=== PATIENT | female | born 1960 | race Two or more races ===

== ENCOUNTER 2020-07-17 06:16 | Day surgery (SDC) | payer OTHER, SELFPAY ==
--- NOTE | 2020-07-16 12:03 | P.CONAN_ITS ---
Documented by User: Teresa Arias 07/16/20 12:03 HPI - Anesthesia Eval Consult details Narrative: 59yo F for Colonoscopy [facility] Past Medical History Medical History Allergic rhinitis DDD (degenerative disc disease) Hx of thyroid nodule Renal calculi Surgical History Surgical History History of umbilical hernia repair Hx of tubal ligation Status post laser lithotripsy of ureteral calculus Social History Social History Smoking Status: Never smoker Use of substances other than those prescribed or required for medical reasons: No Advance Directives: Yes Advance Directives Information Provided: Yes Advance Directives on File: No Advance Directives Date on File: 07/17/20 Meds Allergies Allergy/AdvReac Type Severity Reaction Status Date / Time Penicillins [PCN] Allergy Severe SWELLING Verified 07/17/20 06:51 strawberry [STRAWBERRY] Allergy Severe ANAPHYLAXIS Verified 07/17/20 06:51 azithromycin [AZITHROMYCIN] Allergy Intermediate HIVES/GI Verified 07/17/20 06:51 UPSET levofloxacin [From LEVAQUIN] AdvReac Intermediate MUSCLE Verified 07/17/20 06:51 ACHES/TIGHTNESS Home Medications Medication Instructions Recorded Confirmed Type cholecalciferol (vitamin D3) 50 mcg PO DAILY 07/13/20 07/17/20 History [Vitamin D3] multivitamin 1 cap PO DAILY 07/13/20 07/17/20 History Exam Exam Date and Time: July 16, 2020 1203 Assessment and Plan Assessment Anesthesia Assessment: Chart Reviewed Documented by User: Margarita Bailey 07/17/20 07:26 [facility] Past Medical History Medical History Allergic rhinitis DDD (degenerative disc disease) Hx of thyroid nodule Renal calculi Surgical History Surgical History History of umbilical hernia repair Hx of tubal ligation Status post laser lithotripsy of ureteral calculus Social History Social History Smoking Status: Never smoker Use of substances other than those prescribed or required for medical reasons: No Advance Directives: Yes Advance Directives Information Provided: Yes Advance Directives on File: No Advance Directives Date on File: 07/17/20 Meds Allergies Allergy/AdvReac Type Severity Reaction Status Date / Time Penicillins [PCN] Allergy Severe SWELLING Verified 07/17/20 06:51 strawberry [STRAWBERRY] Allergy Severe ANAPHYLAXIS Verified 07/17/20 06:51 azithromycin [AZITHROMYCIN] Allergy Intermediate HIVES/GI Verified 07/17/20 06:5 1 UPSET levofloxacin [From LEVAQUIN] AdvReac Intermediate MUSCLE Verified 07/17/20 06:51 ACHES/TIGHTNESS Home Medications Medication Instructions Recorded Confirmed Type cholecalciferol (vitamin D3) 50 mcg PO DAILY 07/13/20 07/17/20 History [Vitamin D3] multivitamin 1 cap PO DAILY 07/13/20 07/17/20 History Exam Airway Mallampati Class: II TM Dist: >3cm Neck ROM: Full
[2020-07-17 06:40] VITALS: BP 123/66; PULSE 65; RESP 16; TEMP 36.3; O2SAT 96; BMI 20.6
[2020-07-17] MEDS: Lactated Ringers 1,000 ML 100 ML IVCONT (07:03)
--- NOTE | 2020-07-17 07:21 | P.HPSUR_ITS ---
Pre-Procedural Eval Section B Chief Complaint: SCREENING Details of Present Illness: see H&P no changes Relevant Family History (Specify if Yes): No Relevant Social History: None Present Medications: see Short Stay Collaborative assessment Medical History: Significant History (see H&P) History of Previous Operations: No relevant previous surgery Allergies: Allergies Allergy/AdvReac Type Severity Reaction Status Date / Time Penicillins [PCN] Allergy Severe SWELLING Verified 07/17/20 06:51 strawberry [STRAWBERRY] Allergy Severe ANAPHYLAXIS Verified 07/17/20 06:51 azithromycin [AZITHROMYCIN] Allergy Intermediate HIVES/GI Verified 07/17/20 06:51 UPSET levofloxacin [From LEVAQUIN] AdvReac Intermediate MUSCLE Verified 07/17/20 06:51 ACHES/TIGHTNESS Review of Systems Sugical H&P ROS: Negative: Constitution, Cardiovascular, Respiratory, Ne urological, Psychiatric, Hem-Onc, Allergic/Immunologic, Gastrointestinal, Genitourinary, Musculoskeletal, Integumentary, Endocrine and Eyes/Ears/Nose/Throat Exam Surgical H&P Exam: Normal: HEENT, Normal: Heart, Normal: Lungs, Normal: Extremities, Normal: Abdomen, Normal: Skin and Normal: Neurological Plan Diagnosis/Plan: Unchanged Patient has been examined and remains a candidate for the planned procedure
[2020-07-17 07:50] VITALS: BP 85/39; PULSE 72; RESP 14; TEMP 36.4; O2SAT 99
--- NOTE | 2020-07-17 07:50 | PM.OP ---
Brief Operative Note Date of Service: 07/17/20 Pre-op diagnosis: screening Post-op diagnosis: same (colon polyp) Procedure: colonoscopy Surgeon: Jose E Momin Anesthesia: MAC Estimated blood loss (mL): 2 Pathology: other (polyp cecum) Condition: stable Disposition: PACU
[2020-07-17 08:05] VITALS: BP 123/65; PULSE 66; RESP 16; TEMP 36.4; O2SAT 100
[2020-07-17 08:20] VITALS: BP 126/68; PULSE 60; RESP 16; TEMP 36.4; O2SAT 100
--- NOTE | 2020-07-17 08:20 | OP_ITS ---
SURGEON: Jose E Momin MD PREOPERATIVE DIAGNOSIS: POSTOPERATIVE DIAGNOSIS: PROCEDURE PERFORMED: ESTIMATED BLOOD LOSS: COMPLICATIONS: ANESTHESIA: ASSISTANTS: SPECIMENS: PROCEDURE: Colonoscopy to the terminal ileum with biopsy. INDICATION: Colon cancer screening. MEDICATIONS: Monitored anesthesia care. DESCRIPTION OF PROCEDURE: History and physical performed. The risks and benefits of the procedure were explained to the patient. Informed consent was obtained. The patient was placed in the left lateral decubitus position. A digital rectal exam was performed and was found to be normal. The Olympus pediatric video colonoscope was introduced into the rectum and advanced to the cecum without difficulty. The cecum was identified by transillumination, palpation, and identification of ileocecal valve. Examination was performed. The scope was removed. She tolerated the procedure well and was taken to recovery room in stable condition. FINDINGS: The terminal ileum was normal. The visualized colonic mucosa was normal. The quality of the prep was good. In the cecum was a less than 5 mm sessile polyp which we removed with biopsy forceps. No other polyps were identified. Retroflexed examination showed small internal hemorrhoids. IMPRESSION: Colon polyp. RECOMMENDATION: Follow up biopsy results. MD MANPREET Ross/ENOC / [id number]
--- NOTE | 2020-07-17 08:32 | HO.POSTANES ---
Post Anesthesia Evaluation Post Anesthesia Evaluation Vital Signs: Vital Signs Temp Pulse Resp BP Pulse Ox 07/17/20 08:20 97.6 F 60 16 126/68 100 07/17/20 08:05 97.6 F 66 16 123/65 100 07/17/20 07:50 97.6 F 72 14 85/39 L 99 07/17/20 06:40 97.4 F 65 16 123/66 96 Anesthesia: Monitored Mental Status: Awake Pain Control: Satisfactory Nausea/Vomiting: None Hydration: Adequate Anesthesia-Related Issues: No Anes. Related Issues
== END 2020-07-17 08:45 | disposition home or self-care (01) ==
PROVIDERS: Visit Provider Internal Medicine Gastroenterology
PROC: 0DJD8ZZ Inspection of Lower Intestinal Tract, Via Natural or Artificial Opening Endoscopic (ICD-10-PCS; CPT 45378; principal; 2020-07-17 07:30)
DX: Z12.11 Encounter for screening for malignant neoplasm of colon (principal); D12.0 Benign neoplasm of cecum; Z88.0 Allergy status to penicillin
CPT/HCPCS: 45380; 88305

== ENCOUNTER → 2020-09-14 13:47 | Outpatient (BNVA) | payer OTHER, SELFPAY | PROVIDERS: PCP Internal Medicine; Visit Provider Hospitalist ==

== ENCOUNTER 2020-10-07 10:55 | Outpatient (REF) | payer OTHER, SELFPAY ==
--- NOTE | ~2020-10-07 | XR_ITS ---
EXAMINATION: XR CHEST CLINICAL INFORMATION: COVID 19 COMPARISON: Lung bases from [facility] 08/28/2019 TECHNIQUE: 2 views of the chest were obtained. FINDINGS: New blunting of the right costophrenic angle suggesting a small right pleural effusion. Tenting of the left hemidiaphragm was present 08/28/2019. Normal heart size. No pneumothorax. Normal pulmonary vascularity. No focal consolidation or mass. S-shaped thoracolumbar scoliosis. XR/XR chest 2V IMPRESSION: New small right pleural effusion. No focal consolidation seen.
== END 2020-10-07 10:56 | disposition home or self-care (01) ==
LOC: HO.XRAY 10:55
PROVIDERS: Visit Provider Hospitalist
DX: U07.1 COVID-19 (principal); J12.82 Pneumonia due to coronavirus disease 2019
CPT/HCPCS: 71046

== ENCOUNTER → 2021-01-20 08:54 | Outpatient (BNVA) | payer BC, SELFPAY | PROVIDERS: PCP Internal Medicine; Visit Provider Hospitalist ==

== ENCOUNTER 2021-05-03 07:51 | Outpatient (REF) | payer BC, SELFPAY ==
--- NOTE | 2021-05-03 16:17 | PFT_ITS ---
Forced vital capacity, FEV1, ABY28-66, and MVV are all slightly decreased. Post bronchodilator therapy, no significant change except for slight increase in OVT21-09. Total lung capacity and residual volume normal. Diffusion capacity is moderately decreased. CONCLUSION: There is evidence of a mild degree of obstructive airway disorder involving small airways. There is a minimal improvement after bronchodilator therapy. Clinical correlation is recommended. MD RAJAN Ferrer/ENOC / [id number]
== END 2021-05-03 07:52 | disposition home or self-care (01) ==
LOC: HO.RESP 07:51
PROVIDERS: PCP Internal Medicine; Visit Provider Hospitalist
DX: U07.1 COVID-19 (principal); J12.82 Pneumonia due to coronavirus disease 2019
CPT/HCPCS: 94060; 94727; 94729

== ENCOUNTER 2021-05-14 09:26 | Outpatient (REF) | payer BC, SELFPAY | END 2021-05-14 09:27 | disposition home or self-care (01) | LOC: HO.LAB 09:26 | PROVIDERS: Visit Provider Internal Medicine | DX: Z13.89 Encounter for screening for other disorder (principal) ==

== ENCOUNTER → 2021-05-20 11:06 | Outpatient (BNVA) | payer BC, SELFPAY | PROVIDERS: PCP Internal Medicine; Visit Provider Hospitalist ==

== ENCOUNTER 2021-10-20 15:52 | Inpatient (IN) | payer BC, SELFPAY ==
[2021-10-20] VITALS (7 sets, daily range): BP systolic 113–192; BP diastolic 46–102; PULSE 64–91; RESP 11–24; TEMP 36.5–37.2; O2SAT 90–100; BMI 20.8
--- NOTE | ~2021-10-20 | CT_ITS ---
EXAMINATION: CT HEAD WITHOUT CONTRAST CLINICAL INFORMATION: Headache. COMPARISON: No similar priors. TECHNIQUE: Contiguous axial imaging was performed from the skull base to vertex without intravenous administration of contrast. This CT examination was performed using dose optimization techniques as appropriate, variously including the following: *Automated exposure control *Adjustment of mA and/or kV according to patient size (this includes techniques or standardized protocols for targeted exams where dose is matched to indication/reason for exam; i.e. extremities or head) *Use of iterative reconstruction technique DLP: 629 mGy-cm FINDINGS: Age indeterminate lacunar infarcts in the right basal ganglia (5:138) and right frontal lobe (7:64). There is no evidence of acute intracranial hemorrhage or edematous territorial infarction. A few foci of hypoattenuation in the periventricular and deep white matter are consistent with mild microangiopathy. Caruso-white matter differentiation is preserved. The ventricles are normal in size and configuration. No evidence for obstructive hydrocephalus. No abnormal mass effect or midline shift. No extra-axial fluid collections. No acute soft tissue or osseous abnormalities. The mastoid air cells and paranasal sinuses are clear. CT/CT head/brain wo con IMPRESSION: Age indeterminate lacunar infarcts in the right basal ganglia and right frontal lobe. No priors are available for comparison. Further evaluation with an MR of the brain could be obtained if indicated. No acute intracranial hemorrhage or edematous territorial infarction. This result was discussed with Deysi Khan NP at 10/20/2021 6:01 PM and it was ascertained that the content and urgency of the report was understood at the time of direct communication.
--- NOTE | ~2021-10-20 | MR_ITS ---
EXAMINATION: MR BRAIN WITHOUT CONTRAST CLINICAL INFORMATION: Right-sided lacunar infarct. COMPARISON: CT head from 10/20/2021. TECHNIQUE: MRI of the brain was obtained using routine sequences without contrast. FINDINGS: No focal restricted diffusion is demonstrated to suggest acute or subacute cerebral ischemia. No evidence of acute hemorrhagic products on heme-sensitive imaging. Patchy T2 hyperintensities with mild susceptibility artifact in the bilateral globus pallidi. Scattered periventricular and deep white matter T2 FLAIR hyperintensities consistent with mild underlying microangiopathy. Proportional prominence of the ventricles and sulcal spaces without evidence of obstructive hydrocephalus. No abnormal mass effect. No midline shift. Normal appearance of the pituitary gland. Normal positioning of the cerebellar tonsils. Normal arterial and venous vascular flow voids are present. Normal, homogeneous marrow signal. Mild mucosal thickening of the paranasal sinuses. No signal abnormalities within the mastoids. MR/MR head/brain wo con IMPRESSION: 1. No acute intracranial abnormalities. 2. Mild underlying microangiopathy. 3. Symmetric T2 hyperintensity within the bilateral globus pallidi with mild susceptibility artifact. This appearance is nonspecific but may be secondary to chronic metabolic/toxic insults.
--- NOTE | 2021-10-20 16:47 | ED.HA ---
HPI - Headache General Chief Complaint: Headache Stated Complaint: BP check Time Seen by Provider: 10/20/21 16:05 Source: patient Mode of arrival: ambulatory Limitations: no limitations History of Present Illness HPI Narrative: 60-year-old female presents with elevated blood pressure and headache. Patient has not had a headache that felt like this in the past, the headache is on the right side of her head and feels like a throbbing pressure. She does not report any other symptoms. MD elicited complaint: headache Pertinent past history: hypertension Onset (ago): day(s) (1) Onset description: gradually Location: right Quality & Timing: aching, throbbing and pressure Exacerbating factors: none Relieving factors: nothing Context: occurred at rest Associated symptoms: none Treatments prior to arrival: none Related Data Home Medications Medication Instructions Recorded Confirmed cholecalciferol (vitamin D3) 50 50 mcg PO DAILY 07/13/20 10/20/21 mcg (2,000 unit) capsule (Vitamin D3) Allergies Allergy/AdvReac Type Severity Reaction Status Date / Time Penicillins [PCN] Allergy Severe SWELLING Verified 05/20/21 11:16 strawberry [STRAWBERRY] Allergy Severe ANAPHYLAXIS Verified 05/20/21 11:16 azithromycin [AZITHROMYCIN] Allergy Intermediate HIVES/GI Verified 05/20/21 11:16 UPSET levofloxacin [From LEVAQUIN] AdvReac Intermediate MUSCLE Verified 05/20/21 11:16 ACHES/TIGHTNESS Review of Systems Review of Systems: Constitutional: No Fever, No Chills ENT/Mouth: No Ear Pain, No Hoarseness, No sore throat Eyes: No Eye Pain, No Swelling, No Redness, No Foreign Body Cardiovascular: No Chest Pain, No SOB Respiratory: No Cough, No Dyspnea Gastrointestinal: No Nausea, No Vomiting, No Diarrhea, No abdominal Pain Genitourinary: No Dysuria, No Hematuria Musculoskeletal: No joint pain, No Myalgias, No Joint Swelling Skin: No Skin lacerations, No rash Neuro: No Weakness, No Numbness, No Paresthesias, No Loss of Consciousness, No Dizziness, positive Headache Psych: No Anxiety/Panic, No Depression Heme/Lymph: no easy bruising, no Lymphadenopathy Endocrine: No Polyuria, No Polydipsia Yes all other systems are reviewed and are negative PMFSH Past Medical History Attestation statement: The following information was validated with the patient. Source: old records reviewed Medical History Abnormality of lung on CXR Allergic rhinitis Cough DDD (degenerative disc disease) Dyspnea Hx of thyroid nodule Pneumonia Pneumonia due to COVID-19 virus Pneumonitis Renal calculi Surgical History History of umbilical hernia repair Hx of tubal ligation Status post laser lithotripsy of ureteral calculus Social History Social History Alcohol intake: never Patient Tobacco Use Status: Never used Tobacco Use of substances other than those prescribed or required for medical reasons: No Advance Directives: Yes Advance Directives on File: Yes Advance Directives Date on File: 07/17/20 Physical Exam Vital Signs: Vital Signs: Last Vital Signs Temp 98.4 F 10/20/21 19:56 Pulse 78 10/20/21 20:52 Resp 13 10/20/21 20:52 BP 157/73 H 10/20/21 20:52 Pulse Ox 90 L 10/20/21 20:52 BMI result Body Mass Index 20.8 Appearance: Alert. Oriented X3. No acute distress. Eyes: Pupils equal, round and reactive to light. EOMI. Sclera nonicteric. ENT: Pharynx normal. Moist mucous membranes. Neck: Normal inspection. Neck supple. CVS: Normal heart rate and rhythm. Pulses normal. Respiratory: No respiratory distress. Breath sounds normal. Abdomen: Soft and nontender. Skin: Skin warm and dry. Normal skin color. Normal skin turgor. Extremities: No lower extremity edema. Gait well-balanced well coordinated. Neuro: No motor deficit. No sensory deficit. Cranial nerves 2-12 intact. NIH Stroke Scale Internal: Initial- Upon Arrival Level of Consciousness: Alert Level of Consciousness Questions: Answers both questions correctly Level of Consciousness Commands: Performs both tasks correctly Best Gaze: Normal Visual: No visual loss Facial Palsy: Normal Motor Arm (Right): No drift Motor Arm (Left): No drift Motor Leg (Right): No drift Motor Leg (Left): No drift Limb Ataxia: Absent Sensory: Normal Best Language: No aphasia Dysarthia: Normal Extinction and Inattention: No abnormality Score: 0 Course Course Course Narrative: 60-year-old female presents with right-sided headache with elevated blood pressure. Patient has not ever had a headache like this in the past. She contacted her primary care physician to report her symptoms as well as her elevated blood pressure and was directed to the emergency department for evaluation. She does not report any other symptoms, states that she did have a stressful day at work, did not report any trauma, dizziness, lightheadedness, changes in vision, chest pain or pressure, palpitations, loss of balance or any other concerning symptoms. Will order lab values, COVID test and CT scan of head as she has not had a headache of this intensity in the past. Last known well 15:25 today 18:02 discussion with Radiology regarding CT scan results, 2 lacunar infarcts in the right basal ganglia and right frontal lobe. no bleeding, no edema. MRI recommended. 18:05 call out to Neurology. 18:13 discussion with Neurology, Dr. Dillard, stated that there is nothing that needs to be done urgently 19:20 discussion with family regarding findings, detailed discussion with patient's daughter and patient regarding plan for admission. 19:43 discussion with hospitalist regarding plan of care to admit for stroke observation. Consultations Consultation #1: Hayde Time: 19:46 MDM - Headache Differential Diagnosis Differential diagnosis: Likely migraine, subarachnoid hemorrhage and headache Medical Records Attestation: I reviewed the patient's medical records. Lab Data Attestation: I reviewed the patient's lab results. Result diagrams: 10/20/21 17:19 10/20/21 17:19 Labs: Lab Results 10/20/21 10/20/21 10/20/21 Range/Units 17:19 17:19 17:19 WBC 7.1 (4.8-10.8) X10*3/uL RBC 5.17 (4.20-5.50) X10*6/uL Hgb 13.7 (12.0-16.0) g/dl Hct 43.0 (37.0-47.0) % MCV 83.2 (80.0-98.0) fL MCH 26.5 L (27.0-33.0) pg MCHC 31.9 (31.0-35.0) g/dl RDW 13.8 (11.0-16.0) % Plt Count 265 (160-400) X10*3/uL MPV 9.6 (9.4-12.3) fL Immature Gran % (Auto) 0.3 (0.0-0.4) % Neut % (Auto) 50.3 (45-73) % Lymph % (Auto) 41.0 H (20-40) % [place] % (Auto) 6.9 (2-11) % Eos % (Auto) 0.8 (0-4) % Baso % (Auto) 0.7 (0-2) % Lymph # (Auto) 2.9 (1.2-4.9) X10*3/uL [place] # (Auto) 0.5 (0.1-1.2) X10*3/uL Eos # (Auto) 0.1 (0.0-0.4) X10*3/uL Baso # (Auto) 0.1 (0.0-0.2) X10*3/uL Abs Immat Gran (auto) 0.02 (0.00-0.03) X10*3/uL Absolute Neuts (auto) 3.6 (2.0-8.3) x10*3/uL Absolute Nucleated RBC 0.000 (0.0-0.012) X10*3/uL Nucleated RBC % (auto) 0.0 (0.0-0.2) /100WBC PT (9.9-13.0) SEC Whole Blood PT (11.1-13.5) sec INR (0.9-1.1) Whole Blood INR (0.9-1.1) APTT (24.1-38.0) SEC Sodium 140 (135-145) mmol/L Potassium 4.4 (3.3-5.1) mmol/L Chloride 103 (96-108) mmol/L Carbon Dioxide 29 (22-29) mmol/L Anion Gap 12 (12-20) BUN 11 (9-16) mg/dL Creatinine 0.70 (0.5-1.4) mg/dL Estim Creat Clear Calc 56.8 Estimated GFR > 60 POC Glucose (60-115) mg/dL Random Glucose 91 (60-115) mg/dL Calcium 9.6 (8.4-10.2) mg/dL Magnesium (1.6-2.6) mg/dL Troponin I High Sens (<3.5-17.0) ng/L COVID-19 (BRITT) Negative (Negative) COVID-19 Clin Com See Note 10/20/21 10/20/21 10/20/21 Range/Units 18:15 18:15 18:17 WBC (4.8-10.8) X10*3/uL RBC (4.20-5.50) X10*6/uL Hgb (12.0-16.0) g/dl Hct (37.0-47.0) % MCV (80.0-98.0) fL MCH (27.0-33.0) pg MCHC (31.0-35.0) g/dl RDW (11.0-16.0) % Plt Count (160-400) X10*3/uL MPV (9.4-12.3) fL Immature Gran % (Auto) (0.0-0.4) % Neut % (Auto) (45-73) % Lymph % (Auto) (20-40) % [place] % (Auto) (2-11) % Eos % (Auto) (0-4) % Baso % (Auto) (0-2) % Lymph # (Auto) (1.2-4.9) X10*3/uL [place] # (Auto) (0.1-1.2) X10*3/uL Eos # (Auto) (0.0-0.4) X10*3/uL Baso # (Auto) (0.0-0.2) X10*3/uL Abs Immat Gran (auto) (0.00-0.03) X10*3/uL Absolute Neuts (auto) (2.0-8.3) x10*3/uL Absolute Nucleated RBC (0.0-0.012) X10*3/uL Nucleated RBC % (auto) (0.0-0.2) /100WBC PT 10.8 (9.9-13.0) SEC Whole Blood PT (11.1-13.5) sec INR 1.0 (0.9-1.1) Whole Blood INR (0.9-1.1) APTT 30.9 (24.1-38.0) SEC Sodium (135-145) mmol/L Potassium (3.3-5.1) mmol/L Chloride (96-108) mmol/L Carbon Dioxide (22-29) mmol/L Anion Gap (12-20) BUN (9-16) mg/dL Creatinine (0.5-1.4) mg/dL Estim Creat Clear Calc Estimated GFR POC Glucose 80 (60-115) mg/dL Random Glucose (60-115) mg/dL Calcium (8.4-10.2) mg/dL Magnesium 2.1 (1.6-2.6) mg/dL Troponin I High Sens (<3.5-17.0) ng/L COVID-19 (BRITT) (Negative) COVID-19 Clin Com 10/20/21 10/20/21 Range/Units 18:17 18:18 WBC (4.8-10.8) X10*3/uL RBC (4.20-5.50) X10*6/uL Hgb (12.0-16.0) g/dl Hct (37.0-47.0) % MCV (80.0-98.0) fL MCH (27.0-33.0) pg MCHC (31.0-35.0) g/dl RDW (11.0-16.0) % Plt Count (160-400) X10*3/uL MPV (9.4-12.3) fL Immature Gran % (Auto) (0.0-0.4) % Neut % (Auto) (45-73) % Lymph % (Auto) (20-40) % [place] % (Auto) (2-11) % Eos % (Auto) (0-4) % Baso % (Auto) (0-2) % Lymph # (Auto) (1.2-4.9) X10*3/uL [place] # (Auto) (0.1-1.2) X10*3/uL Eos # (Auto) (0.0-0.4) X10*3/uL Baso # (Auto) (0.0-0.2) X10*3/uL Abs Immat Gran (auto) (0.00-0.03) X10*3/uL Absolute Neuts (auto) (2.0-8.3) x10*3/uL Absolute Nucleated RBC (0.0-0.012) X10*3/uL Nucleated RBC % (auto) (0.0-0.2) /100WBC PT (9.9-13.0) SEC Whole Blood PT 11.9 (11.1-13.5) sec INR (0.9-1.1) Whole Blood INR 1.0 (0.9-1.1) APTT (24.1-38.0) SEC Sodium (135-145) mmol/L Potassium (3.3-5.1) mmol/L Chloride (96-108) mmol/L Carbon Dioxide (22-29) mmol/L Anion Gap (12-20) BUN (9-16) mg/dL Creatinine (0.5-1.4) mg/dL Estim Creat Clear Calc Estimated GFR POC Glucose (60-115) mg/dL Random Glucose (60-115) mg/dL Calcium (8.4-10.2) mg/dL Magnesium (1.6-2.6) mg/dL Troponin I High Sens 7.5 (<3.5-17.0) ng/L COVID-19 (BRITT) (Negative) COVID-19 Clin Com Imaging Data CT scan - head: Attestation: I personally reviewed and interpreted this imaging study as follows: Radiologist's impression: FINDINGS: Age indeterminate lacunar infarcts in the right basal ganglia (5:138) and right frontal lobe (7:64). There is no evidence of acute intracranial hemorrhage or edematous territorial infarction. A few foci of hypoattenuation in the periventricular and deep white matter are consistent with mild microangiopathy. Caruso-white matter differentiation is preserved. The ventricles are normal in size and configuration. No evidence for obstructive hydrocephalus. No abnormal mass effect or midline shift. No extra-axial fluid collections. No acute soft tissue or osseous abnormalities. The mastoid air cells and paranasal sinuses are clear. ? CT/CT head/brain wo con IMPRESSION: Age indeterminate lacunar infarcts in the right basal ganglia and right frontal lobe. No priors are available for comparison. Further evaluation with an MR of the brain could be obtained if indicated. ? No acute intracranial hemorrhage or edematous territorial infarction. ? This result was discussed with Deysi Khan NP at 10/20/2021 6:01 PM and it was ascertained that the content and urgency of the report was understood at the time of direct communication. MRI - head: Attestation: I personally reviewed and interpreted this imaging study as follows: Radiologist's impression: EXAMINATION: MR BRAIN WITHOUT CONTRAST CLINICAL INFORMATION: Right-sided lacunar infarct.? COMPARISON: CT head from 10/20/2021.? TECHNIQUE: MRI of the brain was obtained using routine sequences without contrast. FINDINGS: No focal restricted diffusion is demonstrated to suggest acute or subacute cerebral ischemia. No evidence of acute hemorrhagic products on heme-sensitive imaging. Patchy T2 hyperintensities with mild susceptibility artifact in the bilateral globus pallidi. Scattered periventricular and deep white matter T2 FLAIR hyperintensities consistent with mild underlying microangiopathy. Proportional prominence of the ventricles and sulcal spaces without evidence of obstructive hydrocephalus. No abnormal mass effect. No midline shift. Normal appearance of the pituitary gland. Normal positioning of the cerebellar tonsils. Normal arterial and venous vascular flow voids are present. Normal, homogeneous marrow signal. Mild mucosal thickening of the paranasal sinuses. No signal abnormalities within the mastoids. MR/MR head/brain wo con IMPRESSION: 1. No acute intracranial abnormalities. 2. Mild underlying microangiopathy. 3. Symmetric T2 hyperintensity within the bilateral globus pallidi with mild susceptibility artifact. This appearance is nonspecific but may be secondary to chronic metabolic/toxic insults. ? ECG Data Attestation: I personally reviewed and interpreted this ECG as follows: ECG interpretation date: 10/20/21 Prior ECG tracings: available for review Critical Care Time Critical Care Time Critical Care Time: Yes Total Critical Care Time: 45 Attestation: I have personally provided critical care time exclusive of time spent on separately billable procedures. Time includes review of laboratory data, radiology results, discussion with consultants, and monitoring for potential decompensation. Interventions were performed as documented. Discharge Plan Discharge Clinical Impression: Lacunar infarction Patient Disposition: Admitted As Inpatient
[2021-10-20 17:23] LABS: MANUAL DIFF FLAG NO
[2021-10-20 17:25] LABS: Basophils Absolute Auto 0.1 X10*3/uL (0.0-0.2); Basophils Percent Auto 0.7 % (0-2); Eosinophils Absolute Auto 0.1 X10*3/uL (0.0-0.4); Eosinophils Percent Auto 0.8 % (0-4); Hemoglobin 13.7 g/dl (12.0-16.0); Imm Gran Abs Auto 0.02 X10*3/uL (0.00-0.03); Imm Gran Pct Auto 0.3 % (0.0-0.4); Lymphocytes Absolute Auto 2.9 X10*3/uL (1.2-4.9); Mean Corpuscular HGB Conc 31.9 g/dl (31.0-35.0); Mean Corpuscular Hemoglobin 26.5 pg (27.0-33.0); Mean Corpuscular Volume 83.2 fL (80.0-98.0); Mean Platelet Volume 9.6 fL (9.4-12.3); Monocytes Absolute Auto 0.5 X10*3/uL (0.1-1.2); Monocytes Percent Auto 6.9 % (2-11); Neutrophils Absolute Auto 3.6 x10*3/uL (2.0-8.3); Neutrophils Percent Auto 50.3 % (45-73); Platelet Count 265 X10*3/uL (160-400); Red Blood Count 5.17 X10*6/uL (4.20-5.50); Red Cell Distribution Width 13.8 % (11.0-16.0); White Blood Count 7.1 X10*3/uL (4.8-10.8)
[2021-10-20 17:40] LABS: Anion Gap 12 (12-20); Blood Urea Nitrogen 11 mg/dL (9-16); Calcium 9.6 mg/dL (8.4-10.2); Carbon Dioxide 29 mmol/L (22-29); Chloride 103 mmol/L (96-108); Creatinine Clr Calc Pharmacy 56.8; Estimated Glomerular Filt Rate > 60; Glucose Random 91 mg/dL (60-115); Potassium 4.4 mmol/L (3.3-5.1); Sodium 140 mmol/L (135-145)
[2021-10-20 17:46] LABS: COVID-19 Test Negative (Negative)
--- NOTE | 2021-10-20 18:08 | ECG_ITS ---
Test Reason : stroke protocol Blood Pressure : / mmHG Vent. Rate : 082 BPM Atrial Rate : 082 BPM P-R Int : 146 ms QRS Dur : 082 ms QT Int : 364 ms P-R-T Axes : 056 042 027 degrees QTc Int : 425 ms Normal sinus rhythm Normal ECG When compared to the previous EKG of No significant changes seen Referred By: Deysi Cain Electronically Signed By:ALFREDO CLEANING MD
[2021-10-20 18:22] LABS: Glucose, Whole Blood 80 mg/dL (60-115)
[2021-10-20] MEDS: Aspirin 81 MG TAB.CHEW 324 MG PO (18:22)
[2021-10-20 18:24] LABS: Prothrombin Time Whole Bld POC 11.9 sec (11.1-13.5)
[2021-10-20 18:39] LABS: Magnesium 2.1 mg/dL (1.6-2.6)
[2021-10-20 18:43] LABS: Troponin-I High Sensitivity 7.5 ng/L (<3.5-17.0)
[2021-10-20 18:47] LABS: Prothrombin Time 10.8 SEC (9.9-13.0)
[2021-10-20 18:50] LABS: Partial Thromboplastin Time 30.9 SEC (24.1-38.0)
--- NOTE | 2021-10-20 19:49 | PHA.MEDREC ---
Pharmacy Consult ? Medication Reconciliation Pharmacy has completed the medication reconciliation.
[2021-10-20] MEDS: Acetaminophen 325 MG TABLET 650 MG PO (19:57)
[2021-10-20] MEDS: HYDROmorphone HCl 1 MG/ML SYRINGE IVPUSH (20:48)
[2021-10-20] MEDS: LORazepam 2 MG/ML VIAL 0.5 MG IVPUSH (20:48)
--- NOTE | 2021-10-20 21:04 | P.HPHOSP_ITS ---
History of Present Illness Date of Service: 10/20/21 Chief Complaint: severe headache this is a 60-year-old female with past medical history of thyroid nodules status post thyroidectomy, allergic rhinitis who presents the hospital with complaints of severe headache. Patient reports the headache is in the room holiness region, radiating to the mid of her head, she was very stressed today at work, she has taken on a new job and is very very stressed. She walked out of her job today after being very stressed and experiencing headache that was not resolving with Tylenol. She checked her blood pressure at home and it was high in the 170s/90s. She called her PCP and he told her to come to the hospital. Patient denies slurred speech, or difficulty speaking, no numbness tingling or weakness in her upper or lower extremities, she denies having any gait issues, and no vision changes. She appears very anxious, crying, rubbing at her head and phase, reports that now she feels pressure in her face. She denies any chest pain, no palpitations, no abdominal pain nausea or vomiting, no diarrhea constipation, no urinary symptoms and no lower extremity edema. vitals on arrival significant for BP of 176/89, otherwise unremarkable Labs areUnremarkable with no significant abnormality, CT of the head shows age indeterminate lacunar infarcts in the right basal ganglia and right frontal lobe, no priors are available for comparison. MRI of the brain was done which showed no focal restricted diffusion is demonstrated to suggest acute or subacute central ischemia. Patchy T2 hyperintensities with mild susceptibility artifact in the bilateral globus pallidus I consistent with mild underlying microangiopathy. This is nonspecific but may be secondary to chronic metabolic/toxic insult patient started on aspirin and will be admitted for further management Review of Systems Review of Systems: Yes all other systems are reviewed and are negative [facility] Medical History Abnormality of lung on CXR Allergic rhinitis Cough DDD (degenerative disc disease) Dyspnea Hx of thyroid nodule Pneumonia Pneumonia due to COVID-19 virus Pneumonitis Renal calculi Family History (Updated 10/21/21 @ 06:30 by Theron Lock MD) Father CVA (cerebral vascular accident) Mother CVA (cerebral vascular accident) Surgical History History of umbilical hernia repair Hx of tubal ligation Status post laser lithotripsy of ureteral calculus Social History Household Members: Spouse Housing: House Do you presently have visiting nurse or other home services: No Alcohol intake: never Patient Tobacco Use Status: Never used Tobacco Use of substances other than those prescribed or required for medical reasons: No Have you been hit, kicked, punched, or otherwise hurt by someone within the past year? If so, by whom?: No Do you feel safe in your current relationship?: Yes Is there a partner from a previous relationship who is making you feel unsafe now?: No Are you made to feel afraid or neglected: No Advance Directives: Yes Advance Directives on File: Yes Advance Directives Date on File: 07/17/20 Do you have thoughts of harming others: None Do you have a plan to hurt others: No Plan Recently lost weight without trying: No Nutrition Risks: No Nutritional Risk Meds Allergies Allergy/AdvReac Type Severity Reaction Status Date / Time Penicillins [PCN] Allergy Severe SWELLING Verified 05/20/21 11:16 strawberry [STRAWBERRY] Allergy Severe ANAPHYLAXIS Verified 05/20/21 11:16 azithromycin [AZITHROMYCIN] Allergy Intermediate HIVES/GI Verified 05/20/21 11:16 UPSET levofloxacin [From LEVAQUIN] AdvReac Intermediate MUSCLE Verified 05/20/21 11:16 ACHES/TIGHTNESS Active Medications: Current Medications Aspirin (Aspirin Enteric Coated 81 Mg Tablet.Dr) 81 mg PO DAILY [facility] Home Medications Medication Instructions Recorded Confirmed Last Taken Type cholecalciferol (vitamin D3) 50 50 mcg PO DAILY 07/13/20 10/20/21 01/20/21 09:00 History mcg (2,000 unit) capsule (Vitamin D3) Physical Exam Vital Signs and Narrative: Vital Signs: Last Vital Signs Temp 98.4 F 10/20/21 19:56 Pulse 78 10/20/21 20:52 Resp 13 10/20/21 20:52 BP 157/73 H 10/20/21 20:52 Pulse Ox 90 L 10/20/21 20:52 BMI result Body Mass Index 20.8 Const: General: cooperative and no acute distress Orientation/consciousness: patient oriented x3 Eyes: General: appearance normal, both eyes and all related structures Pupils: Equal, round and reactive pupils present Resp: Effort & Inspection: normal respiratory effort Auscultation: clear to auscultation bilaterally Cardio: Rate: regular rate Rhythm: regular rhythm GI: Palpation (GI): Soft to palpation Auscultation: normal bowel sounds Skin: General skin exam: no rashes or lesions noted Neuro: Other: cranial nerves 2-12 intact, strength 5/5 in all extremities, no focal neurological deficits General: patient oriented x3 Cranial nerves: Yes Equal, round and reactive pupils present Cognition (Neuro): normal cognition Extrem: General: Yes normal to inspection and Yes no pedal edema Psych: Other: very anxious, crying Results Labs CBC and Chem 7: 10/21/21 05:41 10/20/21 17:19 Labs: Laboratory Results - last 24 hr 10/20/21 10/20/21 10/20/21 17:19 17:19 17:19 MCV 83.2 MCH 26.5 L MCHC 31.9 RDW 13.8 Plt Count 265 MPV 9.6 Immature Gran % (Auto) 0.3 Neut % (Auto) 50.3 Lymph % (Auto) 41.0 H [place] % (Auto) 6.9 Eos % (Auto) 0.8 Baso % (Auto) 0.7 Lymph # (Auto) 2.9 [place] # (Auto) 0.5 Eos # (Auto) 0.1 Baso # (Auto) 0.1 Abs Immat Gran (auto) 0.02 Absolute Neuts (auto) 3.6 Absolute Nucleated RBC 0.000 Nucleated RBC % (auto) 0.0 PT Whole Blood PT INR Whole Blood INR APTT Anion Gap 12 Estim Creat Clear Calc 56.8 Estimated GFR > 60 POC Glucose Random Glucose 91 Calcium 9.6 Magnesium COVID-19 (BIRTT) Negative COVID-19 Clin Com See Note 10/20/21 10/20/21 10/20/21 18:15 18:15 18:17 MCV MCH MCHC RDW Plt Count MPV Immature Gran % (Auto) Neut % (Auto) Lymph % (Auto) [place] % (Auto) Eos % (Auto) Baso % (Auto) Lymph # (Auto) [place] # (Auto) Eos # (Auto) Baso # (Auto) Abs Immat Gran (auto) Absolute Neuts (auto) Absolute Nucleated RBC Nucleated RBC % (auto) PT 10.8 Whole Blood PT INR 1.0 Whole Blood INR APTT 30.9 Anion Gap Estim Creat Clear Calc Estimated GFR POC Glucose 80 Random Glucose Calcium Magnesium 2.1 COVID-19 (BRITT) COVID-19 Clin Com 10/20/21 18:17 MCV MCH MCHC RDW Plt Count MPV Immature Gran % (Auto) Neut % (Auto) Lymph % (Auto) [place] % (Auto) Eos % (Auto) Baso % (Auto) Lymph # (Auto) [place] # (Auto) Eos # (Auto) Baso # (Auto) Abs Immat Gran (auto) Absolute Neuts (auto) Absolute Nucleated RBC Nucleated RBC % (auto) PT Whole Blood PT 11.9 INR Whole Blood INR 1.0 APTT Anion Gap Estim Creat Clear Calc Estimated GFR POC Glucose Random Glucose Calcium Magnesium COVID-19 (BRITT) COVID-19 Clin Com Imaging Radiologist's Impressions: Impressions Head CT 10/20/21 17:41 IMPRESSION: Age indeterminate lacunar infarcts in the right basal ganglia and right frontal lobe. No priors are available for comparison. Further evaluation with an MR of the brain could be obtained if indicated. No acute intracranial hemorrhage or edematous territorial infarction. This result was discussed with Deysi Khan NP at 10/20/2021 6:01 PM and it was ascertained that the content and urgency of the report was understood at the time of direct communication. Brain MRI 10/20/21 18:59 IMPRESSION: 1. No acute intracranial abnormalities. 2. Mild underlying microangiopathy. 3. Symmetric T2 hyperintensity within the bilateral globus pallidi with mild susceptibility artifact. This appearance is nonspecific but may be secondary to chronic metabolic/toxic insults. Assessment and Plan (1) CVA (cerebral vascular accident): Status: Acute (2) Headache: Status: Acute (3) Hypertensive emergency: Status: Acute Plan 60-year-old female with past medical history of allergic rhinitis presents to the hospital with complaints of severe headache # headhache - likely 2/2 hypertensive emergency - pt center was significantly elevated blood pressure - headache resolved after receiving Dilaudid and blood pressure improvement - no evidence of aneurysm hemorrhagic stroke or conversion - continue Tylenol p.r.n. and BP control # CVA - CT head showing lacunar infarct - MRI did not clearly demonstrate the above finding - will start patient on aspirin, statin, obtain echocardiogram - but this is likely secondary to elevated BP - will consult neurology # hypertensive emergency - significantly elevated on arrival with BP documented of 192/112 - significant headache and findings of CVA on CT head - patient's blood pressure resolved spontaneously with anxiolytic as well as pain medication. She did not receive any antihypertensives. Her blood pressure did drop Significantly after dimension treatment for anxiety and headache therefore received 1 L of fluid. DVT prophylaxis: Lovenox Quality Stroke Does the patient have a stroke diagnosis?: No VTE Prior VTE?: No VTE Risk Level:: Medical - moderate - high VTE Device Contraindication: Treatment Not Indicated VTE Drug Contraindication: N/A - Med Ordered
--- NOTE | 2021-10-20 21:10 | PC.NURSE ---
Hospitalist called and asked about patient's head pain as well as her blood pressure and would like to be kept up to date .
--- NOTE | 2021-10-20 22:23 | MHC.CM.ED ---
Attempted to meet with patient with regards to D/C planning. Pt sleeping. Will complete assessment when patient wakes. CM to follow for d/c needs.
[2021-10-21] VITALS (7 sets, daily range): BP systolic 96–141; BP diastolic 46–83; PULSE 63–75; RESP 12–18; TEMP 36.3–37.1; O2SAT 96–99
[2021-10-21] MEDS: Lactated Ringers 1,000 ML 999 ML IV (00:18)
[2021-10-21] MEDS: ondansetron HCL 4 MG/2 ML VIAL IVPUSH (03:22)
[2021-10-21 06:18] LABS: MANUAL DIFF FLAG NO
[2021-10-21 06:22] LABS: Basophils Absolute Auto 0.1 X10*3/uL (0.0-0.2); Basophils Percent Auto 0.7 % (0-2); Eosinophils Percent Auto 0.3 % (0-4); Hematocrit 38.6 % (37.0-47.0); Hemoglobin 12.3 g/dl (12.0-16.0); Imm Gran Abs Auto 0.02 X10*3/uL (0.00-0.03); Imm Gran Pct Auto 0.3 % (0.0-0.4); Lymphocytes Absolute Auto 1.5 X10*3/uL (1.2-4.9); Lymphocytes Percent Auto 21.2 % (20-40); Mean Corpuscular HGB Conc 31.9 g/dl (31.0-35.0); Mean Corpuscular Hemoglobin 26.5 pg (27.0-33.0); Mean Corpuscular Volume 83.2 fL (80.0-98.0); Mean Platelet Volume 10.2 fL (9.4-12.3); Monocytes Absolute Auto 0.3 X10*3/uL (0.1-1.2); Monocytes Percent Auto 4.4 % (2-11); Neutrophils Absolute Auto 5.1 x10*3/uL (2.0-8.3); Neutrophils Percent Auto 73.1 % (45-73); Platelet Count 249 X10*3/uL (160-400); Red Blood Count 4.64 X10*6/uL (4.20-5.50); Red Cell Distribution Width 13.7 % (11.0-16.0)
[2021-10-21 06:40] LABS: Anion Gap 12 (12-20); Blood Urea Nitrogen 10 mg/dL (9-16); Calcium 9.2 mg/dL (8.4-10.2); Carbon Dioxide 28 mmol/L (22-29); Chloride 101 mmol/L (96-108); Cholesterol 218 mg/dL; Creatinine Clr Calc Pharmacy 66.3; Estimated Glomerular Filt Rate > 60; Glucose Random 103 mg/dL (60-115); HDL Cholesterol 44 mg/dL; LDL Cholesterol Calculated 149 mg/dl; Potassium 4.4 mmol/L (3.3-5.1); Sodium 137 mmol/L (135-145); Triglycerides 128 mg/dL
[2021-10-21] MEDS: Aspirin Enteric Coated 81 MG TABLET.DR PO (07:31)
[2021-10-21] MEDS: Cholecalciferol (Vitamin D3) 25 MCG TABLET 50 MCG PO (07:32)
[2021-10-21] MEDS: Atorvastatin Calcium 80 MG TABLET PO (07:32)
--- NOTE | 2021-10-21 09:14 | P.PNIM_ITS ---
Subjective Subjective Date of Service: 10/21/21 Interval History: Uncontrolled htn , ? cva Review of Systems Denies any chest pain shortness breath abdominal pain or fever chills or cough or phlegm. Physical Exam Vital Signs: Vital Signs: Last Vital Signs Temp 97.3 F 10/21/21 07:59 Pulse 68 10/21/21 07:59 Resp 17 10/21/21 07:59 BP 118/65 10/21/21 07:59 Pulse Ox 96 10/21/21 07:59 BMI result Body Mass Index 20.8 Appearance: Alert.? Oriented X3.? not in distress.? Eyes: Pupils equal, round and reactive to light.? Sclera nonicteric.? ENT: Pharynx normal.? Moist mucous membranes. cvs: rrr, [id number] . res: clear to auscultation ,no rhonchii or wheezing abd: no rebound or guarding ,nt, bs present. ext pulses present , no cyanosis . neuro: axo3 , moves all ext. Objective Data Active Medications Acetaminophen (Acetaminophen 325 Mg Tablet) 650 mg PO Q6H PRN PRN Reason: Pain, Mild (Pain Scale 1-3) Aspirin (Aspirin Enteric Coated 81 Mg Tablet.) 81 mg PO DAILY [facility] Last Admin: 10/21/21 07:31 Dose: 81 mg Documented by: ALONDRA Aspirin (Aspirin Enteric Coated 81 Mg Tablet.) 81 mg PO DAILY [facility] Last Admin: 10/21/21 07:34 Dose: Not Given Documented by: ALONDRA Non-Admin Reason: duplicate Atorvastatin Calcium (Atorvastatin Calcium 80 Mg Tablet) 80 mg PO DAILY [facility] Last Admin: 10/21/21 07:32 Dose: 80 mg Documented by: ALONDRA Ondansetron HCl (Ondansetron Hcl 4 Mg/2 Ml Vial) 4 mg IVPUSH Q8H PRN PRN Reason: Nausea and Vomiting Last Admin: 10/21/21 03:22 Dose: 4 mg Documented by: MARYLIN Vitamin D (Cholecalciferol (Vitamin D3) 25 Mcg Tablet) 50 mcg PO DAILY [facility] Last Admin: 10/21/21 07:32 Dose: 50 mcg Documented by: ALONDRA Labs CBC & Chem 7: 10/21/21 05:41 10/21/21 05:41 Labs: Laboratory Results - last 24 hr 10/20/21 10/20/21 10/20/21 17:19 17:19 17:19 MCV 83.2 MCH 26.5 L MCHC 31.9 RDW 13.8 Plt Count 265 MPV 9.6 Immature Gran % (Auto) 0.3 Neut % (Auto) 50.3 Lymph % (Auto) 41.0 H [place] % (Auto) 6.9 Eos % (Auto) 0.8 Baso % (Auto) 0.7 Lymph # (Auto) 2.9 [place] # (Auto) 0.5 Eos # (Auto) 0.1 Baso # (Auto) 0.1 Abs Immat Gran (auto) 0.02 Absolute Neuts (auto) 3.6 Absolute Nucleated RBC 0.000 Nucleated RBC % (auto) 0.0 PT Whole Blood PT INR Whole Blood INR APTT Anion Gap 12 Estim Creat Clear Calc 56.8 Estimated GFR > 60 POC Glucose Random Glucose 91 Calcium 9.6 Magnesium Triglycerides Cholesterol LDL Cholesterol, Calc HDL Cholesterol COVID-19 (BRITT) Negative COVID-19 Clin Com See Note 10/20/21 10/20/21 10/20/21 18:15 18:15 18:17 MCV MCH MCHC RDW Plt Count MPV Immature Gran % (Auto) Neut % (Auto) Lymph % (Auto) [place] % (Auto) Eos % (Auto) Baso % (Auto) Lymph # (Auto) [place] # (Auto) Eos # (Auto) Baso # (Auto) Abs Immat Gran (auto) Absolute Neuts (auto) Absolute Nucleated RBC Nucleated RBC % (auto) PT 10.8 Whole Blood PT INR 1.0 Whole Blood INR APTT 30.9 Anion Gap Estim Creat Clear Calc Estimated GFR POC Glucose 80 Random Glucose Calcium Magnesium 2.1 Triglycerides Cholesterol LDL Cholesterol, Calc HDL Cholesterol COVID-19 (BRITT) COVID-19 Clin Com 10/20/21 10/21/21 10/21/21 18:17 05:41 05:41 MCV 83.2 MCH 26.5 L MCHC 31.9 RDW 13.7 Plt Count 249 MPV 10.2 Immature Gran % (Auto) 0.3 Neut % (Auto) 73.1 H Lymph % (Auto) 21.2 [place] % (Auto) 4.4 Eos % (Auto) 0.3 Baso % (Auto) 0.7 Lymph # (Auto) 1.5 [place] # (Auto) 0.3 Eos # (Auto) 0.0 Baso # (Auto) 0.1 Abs Immat Gran (auto) 0.02 Absolute Neuts (auto) 5.1 Absolute Nucleated RBC 0.000 Nucleated RBC % (auto) 0.0 PT Whole Blood PT 11.9 INR Whole Blood INR 1.0 APTT Anion Gap 12 Estim Creat Clear Calc 66.3 Estimated GFR > 60 POC Glucose Random Glucose 103 Calcium 9.2 Magnesium Triglycerides Cholesterol LDL Cholesterol, Calc HDL Cholesterol COVID-19 (BRITT) COVID-19 Clin Com 10/21/21 05:41 MCV MCH MCHC RDW Plt Count MPV Immature Gran % (Auto) Neut % (Auto) Lymph % (Auto) [place] % (Auto) Eos % (Auto) Baso % (Auto) Lymph # (Auto) [place] # (Auto) Eos # (Auto) Baso # (Auto) Abs Immat Gran (auto) Absolute Neuts (auto) Absolute Nucleated RBC Nucleated RBC % (auto) PT Whole Blood PT INR Whole Blood INR APTT Anion Gap Estim Creat Clear Calc Estimated GFR POC Glucose Random Glucose Calcium Magnesium Triglycerides 128 Cholesterol 218 LDL Cholesterol, Calc 149 HDL Cholesterol 44 COVID-19 (BRITT) COVID-19 Clin Com Assessment and Plan (1) Headache: Status: Acute (2) CVA (cerebral vascular accident): Status: Acute (3) Elevated blood pressure reading: Status: Acute Plan 60-year-old female with past medical history of allergic rhinitis? presents to the hospital with complaints of severe headache 1. headhache: improving blood pressure seems improving headache resolved? after receiving Dilaudid and blood pressure improvement. continue Tylenol p.r.n. and BP control 2.? CVA -? CT head showing lacunar infarct -? MRI did not? clearly demonstrate the above finding echocardiogram:Left Ventricle Normal left ventricular size, thickness, and systolic function. The visually estimated ejection fraction is between 60-65%.? Spectral Doppler is indicative of a normal filling pattern. continue on aspirin, statin, consult neurology pending 3.Elevated blood pressure : on admisison- BP documented of 192/112 -? significant headache? and findings of CVA on CT head blood pressure flactuates-did not see any hypertension medication but blood pressure dropped-received 1 L fluid as per H&P. Continue to monitor blood pressure, if blood pressure stays consistently high above 140s may need to add antihypertensive. ?DVT prophylaxis:? Lovenox Quality Stroke Does the patient have a stroke diagnosis?: No VTE Prior VTE?: No VTE Risk Level:: Medical - moderate - high VTE Device Contraindication: Treatment Not Indicated VTE Drug Contraindication: N/A - Med Ordered
--- NOTE | 2021-10-21 10:30 | CA_ITS ---
Transthoracic Echocardiogram Amended Patient (Last, First, Middle): Amanda Bell, Gender: Female Date of : 1960 Age: 60 Procedure Date: 10/21/2021 Procedure Type: Transthoracic Echocardiogram Location: S3E Height: 149.86 cm Weight: 46.72 kg BSA: 1.39 m2 Heart Rate: bpm BP: 138 / 69 mmHg Hand Rug Cleaner: JAY Cespedes MD: Theron Lock MD Geological Science Teacher: Lars Moise MD Symptoms: stroke Study Quality: Fair ECG Rhythm: Sinus Conclusions: - Essentially normal study without clear evidence of PFO on this study. Findings Left Ventricle Normal left ventricular size, thickness, and systolic function. The visually estimated ejection fraction is between 60-65%. Spectral Doppler is indicative of a normal filling pattern. Right Ventricle Normal right ventricular cavity size and systolic function. Atria Both atria are normal in size. There is no evidence of interatrial shunt by agitated saline. Aortic Valve Normal aortic valve structure and function. There is no aortic valve stenosis. There is no aortic valve regurgitation. Mitral Valve Normal mitral valve structure and function. There is trace mitral valve regurgitation. There is no mitral valve stenosis. Pulmonic Valve The pulmonic valve was not well visualized. Tricuspid Valve Likely normal tricuspid valve structure and function. There is trace tricuspid valve regurgitation. The right ventricular systolic pressure is normal. The right ventricular systolic pressure is 32 mmHg. Normal right atrial pressure. There is no evidence of pulmonary hypertension. Great Vessels All visible segments of the aorta are normal in size. The pulmonary artery was not well visualized. Venous The inferior vena cava is normal in size and collapses greater than 50% with inspiration. Pericardium/Pleural There is no evidence of pericardial effusion. Prior Study Comparison No prior study available for comparison. Recommendations, Care & Conclusions Consider a PATRICIA if clinically appropriate. Measurements 2D Linear Measurements IVSd: 0.90 0.6-0.9/0.6-1.0 cm LVIDd: 3.78 3.9-5.3/4.2-5.9 cm LVIDd Index: 2.72 2.4-3.2/2.2-3.1 cm/m2 LVIDs: 2.71 2.0-3.6 cm LVPWd: 0.82 0.7-1.1 cm LA Diam: 3.00 2.7-3.8/3.0-4.0 cm LAIDs Index: 2.16 1.5-2.3 cm/m2 LV Mass: 116.77 67-162/88-224 g LV Mass Index: 84.00 43-95/49-115 g/m2 LVOT Diam: 2.00 3.0+(-)1.3 cm 2D Volumes LA Vol: 26.90 2D Systolic Function EF 4C: 59.70 >55% EF 2C: 60.60 >55% EF BiP: 60.20 >55% Mitral Valve MV Pk E: 0.65 MV PK A: 0.52 MV Decel Time: 235.00 E/A: 1.20 E'Lateral: 6.53 E'Medial: 6.96 E/E' Med: 9.40 E/E' Lat: 10.00 PHT: 69.00 MVA PHT: 3.19 Decel Jerauld: 2.77 Aortic Valve AoV Pk Dileep: 1.12 AoV Mn Dileep: 0.86 AoV VTI: 0.24 AoV Pk Grad: 5.00 Aov Mn Grad: 3.00 KAHLIL Cont.VTI: 2.51 LVOT LVOT Pk Dileep: 0.87 LVOT Mn Dileep: 0.58 LVOT VTI: 0.19 LVOT Pk Grad: 3.00 LVOT Mn Grad: 1.00 LVOT Diam: 2.00 LVOT Area: 3.14 Diastolic Function MV Pk E: 0.65 MV Pk A: 0.52 E/A: 1.20 E'Medial: 6.96 E/E' Med: 9.40 E' Laterial: 6.53 E/E' Lat: 10.00 Right Ventricle TAPSE (mm): 17.00 TVS' Dileep: 9.79 Tricuspid Valve TR Pk Dileep: 2.67 TR Pk Grad: 29.00 RA Press: 3.00 RVSP: 32.00 Great Vessels Aorta Sinus of Valsalva: 3.08 2.0-3.[address] [place]: 2.82 1.7-3.4 cm Ao Asc: 3.20 2.1-3.4 cm Ao Arch: 2.80 Updated in Other Vendor System with Status of Final Lars Moise MD electronically signed on 10/21/2021 3:02:11 PM with status of Final
--- NOTE | 2021-10-21 13:08 | MHC.CM.PN ---
NURSE CASE MANAGEER NOTE ELECTRONIC MEDICAL RECORD REVIEWED ALONG WITH CASE DISUCSSED WITH STAFF NURSE AND GUSTAVO, MET WITH PATIENT AND WITH HER PERMISSION A HER AND SON REMAINED PRESENT DURING THIS ASSESSMENT PATIENT WAS ALERT AND ORIENTATED , AWAITING RESULTS OF SOME STUDIES AND NEURO CONSULT , NEURO CHECKS Q2 HRS EVALUATED BY SPEECH , PT AND OYT, PRIOR TO COMING TO THE HOSPITL SHE WAS ACTIVE INDEPENDENT IN ALL ADLS /MOBILITY, HOUSEWORK AND CONTINUES TO WORK AND DRIVE. DISCHARGE PLAN HOME WITH THE [facility] FOR NURSING AND OT TRANSPORTATION- FAMILY PCP GENESIS REYES AT [facility] PATIENT HAS HAD X3 COVID VACINATIONS PFIZER
[2021-10-21] MEDS: polyethylene glycoL 3350 17 GM POWD.PACK PO (21:32)
[2021-10-22] VITALS: BP 134/81; PULSE 70; RESP 17; TEMP 36.3; O2SAT 96
[2021-10-22 04:00] VITALS: BP 130/62; PULSE 65; RESP 17; TEMP 36.3; O2SAT 97
[2021-10-22 08:00] VITALS: BP 122/57; PULSE 65; RESP 16; TEMP 36.6; O2SAT 96
[2021-10-22] MEDS: Atorvastatin Calcium 80 MG TABLET PO (09:55)
[2021-10-22] MEDS: Aspirin Enteric Coated 81 MG TABLET.DR PO (09:56)
[2021-10-22] MEDS: Cholecalciferol (Vitamin D3) 25 MCG TABLET 50 MCG PO (09:56)
--- NOTE | 2021-10-22 09:56 | MHC.CM.PN ---
educated about the importance of having a health care proxy . sheyla completed one on this admission naming her son and daughter as her agents, original and four copies given to her , and one placed in hard chart and uploaded to [employer]
[2021-10-22 12:00] VITALS: BP 134/66; PULSE 80; RESP 17; TEMP 37; O2SAT 95
--- NOTE | 2021-10-22 12:37 | P.DS_ITS ---
DS: Providers Provider Date of Service: 10/22/21 Date of admission: 10/20/21 21:25 Primary care physician: Unknown Physician Consults: 10/20/21 20:14 Consult to Neurology Routine Consulting Provider: [facility] Reason for consultation: CVA? Has provider been notified: No 10/22/21 09:35 Consult to Psychiatry Routine Consulting Provider: Psych Covering Reason for consultation: severe anxiety/stress related Has provider been notified: No DS: Diagnosis Discharge Diagnosis (1) Headache: Status: Acute (2) CVA (cerebral vascular accident): Status: Acute (3) Elevated blood pressure reading: Status: Acute DS: Summary Hospital Course Hospital Course: 60-year-old female with past medical history of thyroid nodules status post thyroidectomy,? allergic rhinitis? who presents the hospital with complaints of severe headache.? Patient reports the headache is in the room cheondoism region, radiating to the mid of her head, she was very stressed today at work, she has taken on a new job and is very very stressed.? She walked out of her job today after being very stressed and experiencing headache that was not resolving with Tylenol.? She checked her blood pressure at home and it was high in the 170s/90s. ? She called her PCP and he told her to come to the hospital.? Patient denies? slurred speech, or difficulty speaking, no numbness tingling or weakness in her upper or lower extremities,? she denies having any gait issues, and no vision changes.? She? appears very anxious, crying, rubbing at her head and phase, reports that now she feels pressure in her face. ? She denies any chest pain, no palpitations, no abdominal pain nausea or vomiting, no diarrhea constipation, no urinary symptoms and no lower extremity edema.? vitals on arrival significant for BP of 176/89, otherwise unremarkable Labs areUnremarkable with no significant abnormality, ?CT of the head shows age indeterminate lacunar infarcts in the right basal ganglia and right frontal lobe, no priors are available for comparison. ?MRI of the brain was done which showed no focal restricted diffusion is demonstrated to suggest acute or subacute central ischemia.? Patchy? T2 hyperintensities with mild susceptibility artifact in the bilateral globus pallidus I consistent with mild underlying microangiopathy.? This is nonspecific but may be secondary to chronic metabolic/toxic insult ?patient started on aspirin and will be admitted for further management. Hospital course: patient came to the hospital elevated blood pressure, headache-workup including CT head, MRI: Initially was question of CVA, seen by Neurology and echo was done: Her echo seems out to be fine, Neurology recommendations pending Hypercholesteremia: Patient started on statin. Elevated blood pressure: Unclear if blood pressure was related to stress/headache: Blood pressure fluctuating: But seems to be improved in 120s to 130s now, Discussed with patient and patient family-follow lifestyle modifications, keep a diary of blood pressure morning and evening-if blood pressure consistently above 140/90 mmHg-patient may need to start on antihypertensive medication. Stress/anxiety: Patient was seen by psych, recommendation pending. Above management discussed with patient and patient family in detail length they understand and agreement with the plan. Time Spent with Patient Time attestation: Total time spent providing and/or coordinating discharge services: Discharge coordination time: Greater than 30 minutes Quality: Stroke Does the patient have a stroke diagnosis?: No Physical Exam Vital Signs: Vital Signs: Last Vital Signs Temp 97.9 F 10/22/21 08:00 Pulse 65 10/22/21 08:00 Resp 16 10/22/21 08:00 BP 122/57 L 10/22/21 08:00 Pulse Ox 96 10/22/21 08:00 BMI result Body Mass Index 20.8 ?Appearance: Alert.? Oriented X3.? not in distress.? Eyes: Pupils equal, round and reactive to light.? Sclera nonicteric.? ENT: Pharynx normal.? Moist mucous membranes. cvs: rrr, [id number] . res: clear to auscultation ,no rhonchii or wheezing abd: no rebound or guarding ,nt, bs present. ext pulses present , no cyanosis . neuro: axo3 , moves all ext. DS: Data Additional Comments Additional comments: Laboratory Results - last 24 hr ? 10/20/21 10/20/21 10/20/21 ? 17:19 17:19 17:19 MCV ?83.2 ? ? MCH ?26.5 L ? ? MCHC ?31.9 ? ? RDW ?13.8 ? ? Plt Count ?265 ? ? MPV ?9.6 ? ? Immature Gran % (Auto) ?0.3 ? ? Neut % (Auto) ?50.3 ? ? Lymph % (Auto) ?41.0 H ? ? [place] % (Auto) ?6.9 ? ? Eos % (Auto) ?0.8 ? ? Baso % (Auto) ?0.7 ? ? Lymph # (Auto) ?2.9 ? ? [place] # (Auto) ?0.5 ? ? Eos # (Auto) ?0.1 ? ? Baso # (Auto) ?0.1 ? ? Abs Immat Gran (auto) ?0.02 ? ? Absolute Neuts (auto) ?3.6 ? ? Absolute Nucleated RBC ?0.000 ? ? Nucleated RBC % (auto) ?0.0 ? ? PT ? ? ? Whole Blood PT ? ? ? INR ? ? ? Whole Blood INR ? ? ? APTT ? ? ? Anion Gap ? ?12 ? Estim Creat Clear Calc ? ?56.8 ? Estimated GFR ? ?> 60 ? POC Glucose ? ? ? Random Glucose ? ?91 ? Calcium ? ?9.6 ? Magnesium ? ? ? COVID-19 ([facility]) ? ? ?Negative COVID-19 Clin Com ? ? ?See Note ? 10/20/21 10/20/21 10/20/21 ?B 18:15 18:15 18:17 MCV ? ? ? MCH ? ? ? MCHC ? ? ? RDW ? ? ? Plt Count ? ? ? MPV ? ? ? Immature Gran % (Auto) ? ? ? Neut % (Auto) ? ? ? Lymph % (Auto) ? ? ? [place] % (Auto) ? ? ? Eos % (Auto) ? ? ? Baso % (Auto) ? ? ? Lymph # (Auto) ? ? ? [place] # (Auto) ? ? ? Eos # (Auto) ? ? ? Baso # (Auto) ? ? ? Abs Immat Gran (auto) ? ? ? Absolute Neuts (auto) ? ? ? Absolute Nucleated RBC ? ? ? Nucleated RBC % (auto) ? ? ? PT ?10.8 ? ? Whole Blood PT ? ? ? INR ?1.0 ? ? Whole Blood INR ? ? ? APTT ?30.9 ? ? Anion Gap ? ? ? Estim Creat Clear Calc ? ? ? Estimated GFR ? ? ? POC Glucose ? ? ?80 Random Glucose ? ? ? Calcium ? ? ? Magnesium ? ?2.1 ? COVID-19 ([facility]) ? ? ? COVID-19 Clin Com ? 10/20/21 ? 18:17 MCV ? MCH ? MCHC ? RDW ? Plt Count ? MPV ? Immature Gran % (Auto) ? Neut % (Auto) ? Lymph % (Auto) ? [place] % (Auto) ? Eos % (Auto) ? Baso % (Auto) ? Lymph # (Auto) ? [place] # (Auto) ? Eos # (Auto) ? Baso # (Auto) ? Abs Immat Gran (auto) ? Absolute Neuts (auto) ? Absolute Nucleated RBC ? Nucleated RBC % (auto) ? PT ? Whole Blood PT ?11.9 INR ? Whole Blood INR ?1.0 APTT ? Anion Gap ? Estim Creat Clear Calc ? Estimated GFR ? POC Glucose ? Random Glucose ? Calcium ? Magnesium ? COVID-19 ([facility]) ? COVID-19 Clin Com ? Imaging Radiologist's Impressions: Impressions Head CT? 10/20/21 17:41 IMPRESSION: Age indeterminate lacunar infarcts in the right basal ganglia and right frontal lobe. No priors are available for comparison. Further evaluation with an MR of the brain could be obtained if indicated. ? No acute intracranial hemorrhage or edematous territorial infarction. ? This result was discussed with Deysi Khan NP at 10/20/2021 6:01 PM and it was ascertained that the content and urgency of the report was understood at the time of direct communication. Brain MRI? 10/20/21 18:59 IMPRESSION: 1. No acute intracranial abnormalities. 2. Mild underlying microangiopathy. 3. Symmetric T2 hyperintensity within the bilateral globus pallidi with mild susceptibility artifact. This appearance is nonspecific but may be secondary to chronic metabolic/toxic insults. Discharge Plan Discharge Patient Disposition: Home Health Service Discharge Diagnosis: Tension headaches Referrals: [facility] [Outside] - [facility] and home ot medication reconcilation transportyation family pcp kathleen finn ([facility] )) Physician,Unknown J [Primary Care Provider] - 1 Week Discharge Medications: New atorvastatin 40 mg tablet 40 mg PO BEDTIME Qty: 30 0RF acetaminophen [Tylenol] 325 mg capsule 650 mg PO Q6H PRN (Reason: headache) Qty: 10 0RF Continued cholecalciferol (vitamin D3) [Vitamin D3] 50 mcg (2,000 unit) Capsule 50 mcg PO DAILY 0RF Discharge Orders: Discharge Order (Routine); Ordered 10/22/21 Ordered By: Aggie Treviño Diet: advance to usual diet, low fat, low cholesterol and low salt diet Activity on Discharge: As tolerated Stand Alone Forms: Patient Portal Discharge page Care Plan Goals: Patient came with elevated blood pressure, Health Concerns: patient came to the hospital elevated blood pressure, headache-workup including CT head, MRI: Initially was question of CVA, seen by Neurology and echo was done: Her echo seems out to be fine, Neurology recommendations-unlikely patient has CVA-since MRIs negative. Symptoms thought to be more likely tension headache. Hypercholesteremia: Patient started on statin. Please check your lipid panel and LFTs in 1 week with PCP. Elevated blood pressure: Unclear if blood pressure was related to stress/headache: Blood pressure fluctuating: But seems to be improved in 120s to 130s now, Discussed with patient and patient family-follow lifestyle modifications, keep a diary of blood pressure morning and evening-if blood pressure consistently above 140/90 mmHg-patient may need to start on antihypertensive medication. Stress/anxiety: Patient was seen by psych, recommendation pending. Above management discussed with patient and patient family in detail length they understand and agreement with the plan. Plan of Treatment: As above. Assessment: As above. Discharge Date/Time: 10/22/21 17:52
--- NOTE | 2021-10-22 13:31 | MHC.CM.PN ---
PATIENT IS DC HOME TODAY WITH NEW [facility]. START OF CARE IS Monday10/26/21. PATIENT AWARE AND IN AGREEMENT.
--- NOTE | 2021-10-22 14:31 | P.F2F_ITS ---
Service Date Service Date: 10/22/21 Encounter Date of encounter: 10/22/21 Reasons for Services Signs and symptoms assessed: Elevated blood pressure, headache, hyperlipidemia,anxiety Reason for retirement: medication management, medication treatment and teach disease management MD Overseeing Care: Jennifer Jesus Homebound: Leaving the home is medically contraindicated at this time without the asist of a device and/or another person due th the listed conditions above and below. Reason homebound: weakness related to hospital stay Homebound supporting statement: Patient has hypercholesteremia, also labile blood pressure, hypercholesteremia and generalized weak post hospitalization need help with appointments. Certification: Based on the above findings, I certify that this patient is confined to the home and needs intermittent retirement care, physical therapy and/or speech therapy, or continues to need occupational therapy. The patient is under my care, and I have initiated the establishment of the plan of care. The patient will be followed by a physician who will periodically review the plan of care.
[2021-10-22 15:13] VITALS: BP 102/56; PULSE 71; RESP 16; TEMP 36.9; O2SAT 95
--- NOTE | 2021-10-22 15:27 | PM.PSYCN ---
History of Present Illness Date of Service: 10/22/21 Chief Complaint: CVA? Reason for Consult: Severe anxiety, stress related. Requesting physician: Aggie Treviño Discussed with referring provider: Yes Sources of Information: patient interviewed and chart reviewed HPI Narrative: Patient is a 60-year-old female, presented to ED with anxiety, crying, rubbing her head. Reported facial pressure at that time. Vitals on arrival were elevated with BP of 176/89. PMH of thyroid nodules, allergic rhinitis. CT of head showed lacunar infarct. MRI did not clearly show the above finding. Neuro consult has been ordered. Mass Pat shows 1 brief controlled substance for cough. Home medication list reveals no psychiatric medications. I evaluated the patient this afternoon, and upon interview she reports feeling much less anxious than when she presented to hospital. She was sitting up in chair by window, wearing hospital garb. Appropriate grooming. Her son was present in the room, she gave permission for him to stay in the room during interview. She reports that she has never had any concerns with depression ordered anxiety throughout her life, and has never received any type of psychiatric care. She explains that she had a job for 18 years, and did extremely well. She has also been a city counselor for over a decade, and was always able to fill all of her duties appropriately. One year ago, in October 2020, she left her old position and accepted a job with a new company. She did this with the intent to retire from this new position, as it was a professional position, with excellent benefit and half-way plan. However, she reports experiencing ongoing interpersonal conflict daily in this new position, which has led to feelings of anxiety prior to going to work every week. She believes this is contributing to her increased blood pressure levels over the past year. She was asking me if the stress level at her new job could end up causing her to have a stroke. Her son interjected several times during encounter. He reports that his mother is usually a very high functioning, low stress, productive, independent person. He states that over the past year with her level of stress at this new position, he has noticed her to be unhappy with her job. Past Psychiatric History: No past psychiatric history, no history of inpatient level of care, psychiatric medications, PHP, therapy. Medical Evaluation Reviewed: Yes Personal & Social History: Currently employed, reports that she gave her resignation. Former City counselor for 10 years. Son was present, supportive. Daughter later came in, supportive. Review of Systems Review of Systems A full review of systems was completed and was negative with the exception of pertinent positives noted in history of the presenting illness (HPI). Constitutional: Reports no additional constitutional complaints [facility] Medical History Abnormality of lung on CXR Allergic rhinitis Cough DDD (degenerative disc disease) Dyspnea Hx of thyroid nodule Pneumonia Pneumonia due to COVID-19 virus Pneumonitis Renal calculi Surgical History History of umbilical hernia repair Hx of tubal ligation Status post laser lithotripsy of ureteral calculus Family History: No psych family history reported. Social History: Lives locally, has supportive family. Substance History: None reported. Trauma History: None reported. Diagnostics Vital Signs (24Hr): Vital Signs - 24 hr 10/21/21 16:00 10/21/21 20:00 10/22/21 00:00 Temperature 98.8 F 97.4 F 97.4 F Pulse Rate 69 65 70 Respiratory Rate 18 17 17 Blood Pressure 111/56 L 114/65 134/81 Pulse Oximetry 96 96 96 10/22/21 04:00 10/22/21 08:00 10/22/21 12:00 Temperature 97.3 F 97.9 F 98.6 F Pulse Rate 65 65 80 Respiratory Rate 17 16 17 Blood Pressure 130/62 122/57 L 134/66 Pulse Oximetry 97 96 95 10/22/21 15:13 Temperature 98.4 F Pulse Rate 71 Respiratory Rate 16 Blood Pressure 102/56 L Pulse Oximetry 95 BMI result Body Mass Index 20.8 Labs Results: 10/21/21 05:41 10/21/21 05:41 Labs: Laboratory Results - last 48 hr 10/20/21 10/20/21 10/20/21 17:19 17:19 17:19 WBC 7.1 RBC 5.17 Hgb 13.7 Hct 43.0 MCV 83.2 MCH 26.5 L MCHC 31.9 RDW 13.8 Plt Count 265 MPV 9.6 Immature Gran % (Auto) 0.3 Neut % (Auto) 50.3 Lymph % (Auto) 41.0 H [place] % (Auto) 6.9 Eos % (Auto) 0.8 Baso % (Auto) 0.7 Lymph # (Auto) 2.9 [place] # (Auto) 0.5 Eos # (Auto) 0.1 Baso # (Auto) 0.1 Abs Immat Gran (auto) 0.02 Absolute Neuts (auto) 3.6 Absolute Nucleated RBC 0.000 Nucleated RBC % (auto) 0.0 PT Whole Blood PT INR Whole Blood INR APTT Sodium 140 Potassium 4.4 Chloride 103 Carbon Dioxide 29 Anion Gap 12 BUN 11 Creatinine 0.70 Estim Creat Clear Calc 56.8 Estimated GFR > 60 POC Glucose Random Glucose 91 Calcium 9.6 Magnesium Troponin I High Sens Triglycerides Cholesterol LDL Cholesterol, Calc HDL Cholesterol COVID-19 (BRITT) Negative COVID-19 Clin Com See Note 10/20/21 10/20/21 10/20/21 18:15 18:15 18:17 WBC RBC Hgb Hct MCV MCH MCHC RDW Plt Count MPV Immature Gran % (Auto) Neut % (Auto) Lymph % (Auto) [place] % (Auto) Eos % (Auto) Baso % (Auto) Lymph # (Auto) [place] # (Auto) Eos # (Auto) Baso # (Auto) Abs Immat Gran (auto) Absolute Neuts (auto) Absolute Nucleated RBC Nucleated RBC % (auto) PT 10.8 Whole Blood PT INR 1.0 Whole Blood INR APTT 30.9 Sodium Potassium Chloride Carbon Dioxide Anion Gap BUN Creatinine Estim Creat Clear Calc Estimated GFR POC Glucose 80 Random Glucose Calcium Magnesium 2.1 Troponin I High Sens Triglycerides Cholesterol LDL Cholesterol, Calc HDL Cholesterol COVID-19 (BRITT) COVID-19 Clin Com 10/20/21 10/20/21 10/21/21 18:17 18:18 05:41 WBC 7.0 RBC 4.64 Hgb 12.3 Hct 38.6 MCV 83.2 MCH 26.5 L MCHC 31.9 RDW 13.7 Plt Count 249 MPV 10.2 Immature Gran % (Auto) 0.3 Neut % (Auto) 73.1 H Lymph % (Auto) 21.2 [place] % (Auto) 4.4 Eos % (Auto) 0.3 Baso % (Auto) 0.7 Lymph # (Auto) 1.5 [place] # (Auto) 0.3 Eos # (Auto) 0.0 Baso # (Auto) 0.1 Abs Immat Gran (auto) 0.02 Absolute Neuts (auto) 5.1 Absolute Nucleated RBC 0.000 Nucleated RBC % (auto) 0.0 PT Whole Blood PT 11.9 INR Whole Blood INR 1.0 APTT Sodium Potassium Chloride Carbon Dioxide Anion Gap BUN Creatinine Estim Creat Clear Calc Estimated GFR POC Glucose Random Glucose Calcium Magnesium Troponin I High Sens 7.5 Triglycerides Cholesterol LDL Cholesterol, Calc HDL Cholesterol COVID-19 (BRITT) COVID-19 Clin Com 10/21/21 10/21/21 05:41 05:41 WBC RBC Hgb Hct MCV MCH MCHC RDW Plt Count MPV Immature Gran % (Auto) Neut % (Auto) Lymph % (Auto) [place] % (Auto) Eos % (Auto) Baso % (Auto) Lymph # (Auto) [place] # (Auto) Eos # (Auto) Baso # (Auto) Abs Immat Gran (auto) Absolute Neuts (auto) Absolute Nucleated RBC Nucleated RBC % (auto) PT Whole Blood PT INR Whole Blood INR APTT Sodium 137 Potassium 4.4 Chloride 101 Carbon Dioxide 28 Anion Gap 12 BUN 10 Creatinine 0.60 Estim Creat Clear Calc 66.3 Estimated GFR > 60 POC Glucose Random Glucose 103 Calcium 9.2 Magnesium Troponin I High Sens Triglycerides 128 Cholesterol 218 LDL Cholesterol, Calc 149 HDL Cholesterol 44 COVID-19 (BRITT) COVID-19 Clin Com Imaging Radiology Impressions: ITS Impressions Head CT 10/20/21 17:41 IMPRESSION: Age indeterminate lacunar infarcts in the right basal ganglia and right frontal lobe. No priors are available for comparison. Further evaluation with an MR of the brain could be obtained if indicated. No acute intracranial hemorrhage or edematous territorial infarction. This result was discussed with Deysi Khan NP at 10/20/2021 6:01 PM and it was ascertained that the content and urgency of the report was understood at the time of direct communication. Brain MRI 10/20/21 18:59 IMPRESSION: 1. No acute intracranial abnormalities. 2. Mild underlying microangiopathy. 3. Symmetric T2 hyperintensity within the bilateral globus pallidi with mild susceptibility artifact. This appearance is nonspecific but may be secondary to chronic metabolic/toxic insults. Mental Status Exam Mental Status Exam Narrative: Well developed, well nourished female, in NAD. Appears stated age. Appropriate grooming, wearing hospital garb. Sitting up in chair by window. Patient Appearance: Appropriate Patient Orientation: Person, Place, Time and Situation Level of Consciousness: Awake, Appropriate and Alert Patient Behavior: Appropriate, Talkative, Cooperative, Anxious, Good Eye Contact and Crying (tearful at times) Mood Description: Appropriate and Sad (Expressed disappointment regarding her job, and fact that she just handed in resignation.) Affect Description: Appropriate, Anxious and Sad Patient Cognition Impaired: No Ability to Follow Directions: Good Speech Pattern: Clear, Perseverating (Regarding work place interpersonal conflict.), Coherent and Rapid (Became rapid as she began talking about the level of stress in her work. ) Memory Description: Intact Hallucinations: None Delusions: Not Present Thought Process: Intact, Goal Oriented and Linear Thought Content: positive for Intact, positive for Goal Oriented, positive for Linear and positive for Perseveration (Regarding her current work situation and level of stress.) Depressive Symptoms: Increased Anxiety (Reports anxiety has decreased significantly since she has been here.) Judgement: Good Medications Medications Current Medications Acetaminophen (Acetaminophen 325 Mg Tablet) 650 mg PO Q6H PRN PRN Reason: Pain, Mild (Pain Scale 1-3) Aspirin (Aspirin Enteric Coated 81 Mg Tablet.) 81 mg PO DAILY [facility] Last Admin: 10/21/21 07:31 Dose: 81 mg Documented by: Aspirin (Aspirin Enteric Coated 81 Mg Tablet.) 81 mg PO DAILY [facility] Last Admin: 10/22/21 09:56 Dose: 81 mg Documented by: Atorvastatin Calcium (Atorvastatin Calcium 80 Mg Tablet) 80 mg PO DAILY [facility] Last Admin: 10/22/21 09:55 Dose: 80 mg Documented by: Ondansetron HCl (Ondansetron Hcl 4 Mg/2 Ml Vial) 4 mg IVPUSH Q8H PRN PRN Reason: Nausea and Vomiting Last Admin: 10/21/21 03:22 Dose: 4 mg Documented by: Polyethylene Glycol (Polyethylene Glycol 3350 17 Gm Powd.Pack) 17 gm PO DAILY [facility] Last Admin: 10/22/21 09:58 Dose: Not Given Documented by: Vitamin D (Cholecalciferol (Vitamin D3) 25 Mcg Tablet) 50 mcg PO DAILY [facility] Last Admin: 10/22/21 09:56 Dose: 50 mcg Documented by: Allergies Allergies Allergy/AdvReac Type Severity Reaction Status Date / Time Penicillins [PCN] Allergy Severe SWELLING Verified 05/20/21 11:16 strawberry [STRAWBERRY] Allergy Severe ANAPHYLAXIS Verified 05/20/21 11:16 azithromycin [AZITHROMYCIN] Allergy Intermediate HIVES/GI Verified 05/20/21 11:16 UPSET levofloxacin [From LEVAQUIN] AdvReac Intermediate MUSCLE Verified 05/20/21 11:16 ACHES/TIGHTNESS Assessment & Plan Assessment & Plan (1) Adjustment disorder with anxious mood: Status: Acute Code(s): F43.22 - Adjustment disorder with anxiety Assessment and Plan: Patient was admitted with increased blood pressure, anxious mood an affect. She explains that she is not normally an anxious person, and has no history of anxiety disorder or depression, and has never been treated psychiatrically with either medications or therapy. She denies any thoughts either previously or presently of harm to self or others, no SI, no safety concerns. She changed from a job that she held for 18 years last year to a new position, which has caused significant stress in her life. There has been much interpersonal conflict in this job, which has led to her experiencing some anxiety symptoms as well as physical symptoms, which she describes as feeling her pulse and blood pressure increased at times. Since she has been here, she has handed in resignation of her position. She reports that now she is feeling much less anxious. She states that she realizes the stress from her position was becoming detrimental to her health, and causing her distress. She feels that since she handed in her resignation, it has been cathartic, and she is returning back to her normal state. She is not interested in any type of medication at this time. She was willing to accept a list of local mental health resources, including clinics and therapists. She states that if she feels an increase in anxiety or any other symptoms, that she will call 1 of the agencies. A brief discussion of PHP was held, she was given phone number for this as well. She is not interested in any of these programs at this time, but will keep information on hand. Plan Patient appears to experiencing adjustment disorder with anxious mood. Once the stressor or its consequences have terminated, the symptoms do not persist for more much longer. In this case, she is already reporting an improvement in symptoms, and is stating that she is no longer anxious. She appears to have a very supportive network, and has received calls from coworkers and friends expressing their concern. Her children are also present, and are offering their support as well. 1.She does not meet criteria for any type of inpatient level of care, and is not interested in medications at this time. 2. Resource information has been provided to patient, including a list of local counseling agencies, psychiatric providers, and [facility]. If she so wishes to do so, she will contact any of these on her own. I have shared this information with provider Dr. Aggie Treviño, via secure electronic messaging system. Thank you for this consultation. If you have any further questions or concerns, please do not hesitate to contact psychiatry service. I spent ____45__ minutes with the patient and/or on the patient floor today, greater than?50% of which was spent counseling/coordinating care. Patient educated on: diagnosis, medication risk/benefits and therapeutic strategies Informed Consent: understands
--- NOTE | 2021-10-22 15:55 | P.CNNE_ITS ---
History of Present Illness Data of Consult Service Date: 10/22/21 Primary Care Provider: Unknown Physician HPI Reason for consult: Headache, possible stroke, hypertensive emergency 60-year-old female with past medical history of thyroid nodules status post thyroidectomy,? allergic rhinitis? who presents the hospital with complaints of severe headache.? Patient reports the headache is in the room bapt[place] region, r adiating to the mid of her head That came on after she was in a very stressful situation at work today on a new job.? She walked out of her job today after being very stressed and experiencing headache that was not resolving with Tylenol.? She checked her blood pressure at home and it was high in the 170s/90s. ? She called her PCP and he told her to come to the hospital.? Patient denies? slurred speech, or difficulty speaking, no numbness tingling or weakness in her upper or lower extremities,? she denies having any gait issues, and no vision changes.? She? appears very anxious, crying, rubbing at her head and phase, reports that now she feels pressure in her face. ? She denies any chest pain, no palpitations, no abdominal pain nausea or vomiting, no diarrhea constipation, no urinary symptoms and no lower extremity edema.? vitals on arrival significant for BP of 176/89, otherwise unremarkable Review of Systems Review of Systems: Denies any chest pain shortness breath abdominal pain or fever chills or cough or phlegm. Yes all other systems are reviewed and are negative PMFSH Past Medical History Medical History Abnormality of lung on CXR Allergic rhinitis Cough DDD (degenerative disc disease) Dyspnea Hx of thyroid nodule Pneumonia Pneumonia due to COVID-19 virus Pneumonitis Renal calculi Family History Family History (Updated 10/21/21 @ 06:30 by Theron Lock MD) Father CVA (cerebral vascular accident) Mother CVA (cerebral vascular accident) Surgical History Surgical History History of umbilical hernia repair Hx of tubal ligation Status post laser lithotripsy of ureteral calculus Social History Social History Household Members: Spouse Housing: House Do you presently have visiting nurse or other home services: No Alcohol intake: never Patient Tobacco Use Status: Never used Tobacco Advance Directives Date on File: 07/17/20 service: No Meds Allergies Allergy/AdvReac Type Severity Reaction Status Date / Time Penicillins [PCN] Allergy Severe SWELLING Verified 05/20/21 11:16 strawberry [STRAWBERRY] Allergy Severe ANAPHYLAXIS Verified 05/20/21 11:16 azithromycin [AZITHROMYCIN] Allergy Intermediate HIVES/GI Verified 05/20/21 11:16 UPSET levofloxacin [From LEVAQUIN] AdvReac Intermediate MUSCLE Verified 05/20/21 11:16 ACHES/TIGHTNESS Active Medications: Current Medications Acetaminophen (Acetaminophen 325 Mg Tablet) 650 mg PO Q6H PRN PRN Reason: Pain, Mild (Pain Scale 1-3) Aspirin (Aspirin Enteric Coated 81 Mg Tablet.) 81 mg PO DAILY [facility] Last Admin: 10/21/21 07:31 Dose: 81 mg Documented by: Aspirin (Aspirin Enteric Coated 81 Mg Tablet.) 81 mg PO DAILY [facility] Last Admin: 10/22/21 09:56 Dose: 81 mg Documented by: Atorvastatin Calcium (Atorvastatin Calcium 80 Mg Tablet) 80 mg PO DAILY [facility] Last Admin: 10/22/21 09:55 Dose: 80 mg Documented by: Ondansetron HCl (Ondansetron Hcl 4 Mg/2 Ml Vial) 4 mg IVPUSH Q8H PRN PRN Reason: Nausea and Vomiting Last Admin: 10/21/21 03:22 Dose: 4 mg Documented by: Polyethylene Glycol (Polyethylene Glycol 3350 17 Gm Powd.Pack) 17 gm PO DAILY [facility] Last Admin: 10/22/21 09:58 Dose: Not Given Documented by: Vitamin D (Cholecalciferol (Vitamin D3) 25 Mcg Tablet) 50 mcg PO DAILY [facility] Last Admin: 10/22/21 09:56 Dose: 50 mcg Documented by: Home Medications Medication Instructions Recorded Confirmed Last Taken Type cholecalciferol (vitamin D3) 50 50 mcg PO DAILY 07/13/20 10/20/21 01/20/21 09:00 History mcg (2,000 unit) capsule (Vitamin D3) Physical Exam Vital Signs: Vital Signs: Last Vital Signs Temp 98.4 F 10/22/21 15:13 Pulse 71 10/22/21 15:13 Resp 16 10/22/21 15:13 BP 102/56 L 10/22/21 15:13 Pulse Ox 95 10/22/21 15:13 BMI result Body Mass Index 20.8 Const: General: cooperative and no acute distress Orientation/consciousness: patient oriented x3 Eyes: General: appearance normal, both eyes and all related structures Pupils: Equal, round and reactive pupils present Resp: Effort & Inspection: normal respiratory effort Auscultation: clear to auscultation bilaterally Cardio: Rate: regular rate Rhythm: regular rhythm GI: Palpation (GI): Soft to palpation Auscultation: normal bowel sounds Skin: General skin exam: no rashes or lesions noted Neuro: Other: cranial nerves 2-12 intact, strength 5/5 in all extremities, no focal neurological deficits. Neck is supple. She is alert and oriented x3 General: patient oriented x3 Cranial nerves: Yes Equal, round and reactive pupils present Cognition (Neuro): normal cognition Extrem: General: Yes normal to inspection and Yes no pedal edema Psych: Other: very anxious, crying Results Labs CBC & Chem 7: 10/21/21 05:41 10/21/21 05:41 Assessment and Plan (1) Headache: Status: Acute Headache has resolved. Suspect this was a tension headache. (2) CVA (cerebral vascular accident): Status: Acute No evidence of stroke on MRI cathi was personally reviewed. The CT scan mark lund was an overcall (3) Elevated blood pressure reading: Status: Acute She can be discharged with outpatient blood pressure monitoring Plan 60-year-old female with past medical history of allergic rhinitis? presents to the hospital with complaints of severe headache 1. headhache: improving blood pressure seems improving headache resolved? after receiving Dilaudid and blood pressure improvement. continue Tylenol p.r.n. and BP control 2.? CVA -? CT head showing lacunar infarct -? MRI did not? clearly demonstrate the above finding echocardiogram:Left Ventricle Normal left ventricular size, thickness, and systolic function. The visually estimated ejection fraction is between 60-65%.? Spectral Doppler is indicative of a normal filling pattern. continue on aspirin, statin, consult neurology pending 3.Elevated blood pressure : on admisison- BP documented of 192/112 -? significant headache? and findings of CVA on CT head blood pressure flactuates-did not see any hypertension medication but blood pressure dropped-received 1 L fluid as per H&P. Continue to monitor blood pressure, if blood pressure stays consistently high above 140s may need to add antihypertensive. ?DVT prophylaxis:? Lovenox Procedures Date of Service Date of Service: 10/22/21
== END 2021-10-22 17:52 | disposition home health service (06) | DRG 54 ==
LOC: HO.ED 19:54 → HO.EDOVER 21:39 → HO.S3 10-21 01:06
PROVIDERS: Nurse Practitioner Family; Admitting Provider Internal Medicine; Emergency Provider Emergency Medicine Emergency Medical Services; Visit Provider Internal Medicine
DX: G44.209 Tension-type headache, unspecified, not intractable (principal); E78.5 Hyperlipidemia, unspecified; F43.22 Adjustment disorder with anxiety; I16.1 Hypertensive emergency; R29.700 NIHSS score 0; Z20.822 Contact with and (suspected) exposure to COVID-19; Z88.0 Allergy status to penicillin; Z79.899 Other long term (current) drug therapy
CPT/HCPCS: 36415; 70450; 70551; 80048; 80061; 82947; 83735; 84484; 85025; 85610; 85730; 87635; 93005; 93306; 97161; 97165; 97530; 99285; 99291; J1170; J2060; J2405

== ENCOUNTER 2023-04-18 14:14 | Outpatient (AMB) | payer BC, SELFPAY ==
--- NOTE | 2023-04-18 14:34 | A.OFFVIS_ITS ---
Intake Vital Signs 04/18/23 14:35 Height 4 ft 11 in Weight 102 lb BMI 20.6 BP 122/70 Blood Pressure Location Lt brachial Position Sitting Pulse 62 Pulse Source Pulse Oximeter Pulse Oximetry (%) 98 Oxygen Delivery Method Room Air Intake Visit Reasons: cough Lab Pack Chemist Required: No Allergies Penicillins [PCN] Allergy (Severe, Verified 04/18/23 14:39) SWELLING strawberry [STRAWBERRY] Allergy (Severe, Verified 04/18/23 14:39) ANAPHYLAXIS azithromycin [AZITHROMYCIN] Allergy (Intermediate, Verified 04/18/23 14:39) HIVES/GI UPSET levofloxacin [From LEVAQUIN] Adverse Reaction (Intermediate, Verified 04/18/23 14:39) MUSCLE ACHES/TIGHTNESS HPI HPI Comments History of Present Illness Details The patient is a 62-year-old woman who has a unremarkable past medical history until back in the end of July when she started having symptoms consistent with COVID-19. She was tested positive for COVID-19 on August 04 and did have issues with cough. While she was sick with the COVID she did have worsening shortness of breath. She did have a nebulizer available and she did treat herself with albuterol. Her symptoms did improve some degree. She initially she was very short of breath even going up a flight of stairs. Moderate severity. Also had a significant cough specially when she try taking a deep breath which she was started coughing after doing so. Sometimes the coughing spells could result in some lightheadedness. The patient did undergo a chest x-ray at [facility] which I personally reviewed demonstrating bilateral hazy opacities left more than right primarily at the bases consistent with the COVID 19 pneumonia. The patient has not been coughing any secretions. She denies any fevers or chills. Her pulse oximetry has been good between 97- 98%. On examination she still has some crackles. Therefore will treat her with a low-dose prednisone and would be reasonable to give her some doxycycline in the meantime. Will follow up with her chest x-ray and pulmonary function studies. 01/20/2021 the patient is here for pulmonary follow-up visit. She developed COVID back in July and she still complaining of some underlying respiratory complaints and also having significant muscle spasms specially for back. Denies any pleuritic chest discomfort. She still noticing some dyspnea on exertion. [id number] severity. Depending on the activity. She went swimming once and she felt very short of breath while she was swimming she was very concerned because she is an avid swimmer. The patient did not have her pulmonary function studies. We did review her CXR from 09/2020 with RLL opacity ?effusion. 05/20/2021 the patient is here for pulmonary follow-up visit. Overall she is feeling better. She is going back to the gym and exercising. She has not noticed any significant limitations from a respiratory status. The patient did not have her follow-up chest x-ray. However, she did have pulmonary function studies that were personally by me. Appears that she does have low normal forced vital capacity and normal total lung capacity. She has a moderate diffusion impairment. Therefore she does have some residual changes that she developed after COVID. We did again review her last chest x-ray demonstrating some slight opacity to the right to based suggesting some degree of thickening of the pleura in addition to pleural effusion. I will have the patient get an x-ray in the next few months. Overall she is clinically doing better. However, if she notices any worsening symptoms she is to call for an earlier visit and have the x-ray at a earlier time. 04/18/2023 the patient is here for pulmonary follow-up visit. the patient just got back from vacation. She became sick. Started developing bronchitis symptoms chest congestion chest tightness. Moderate severity. She was evaluated by primary care doctor and also urgent care. No x-rays were done. The patient was started to have a viral syndrome. She did test negative for COVID-19. She was not given any medication. She did get [id number] cough medication. Ultimately ended up getting some codeine cough syrup which is helpful. Still does not feel right. Still having chest tightness. On examination she does have wheezing and some rhonchi. the patient is also congested bringing up some light colored phlegm. We did review her last chest x-ray which was slightly abnormal with a small pleural effusion and atelectasis. In addition to that she did have pulmonary function studies last year demonstrating significant small airways disease in a normal total lung capacity and a moderate diffusion impairment. This is all the results of significant COVID. At this point the patient will be started on a course of antibiotics to treat the bronchitis along with a small dose of prednisone. In addition to that she will have her rescue medication available. Will plan to repeat her chest x- ray and PFTs and follow-up. The patient also has been issues with musty smells and humidity. Will go ahead and requested additional blood work to assess her allergies in immune status. [facility] Medical History (Updated 04/18/23 @ 23:01 by Chris Mckeon MD) Abnormality of lung on CXR Allergic rhinitis Asthma Cough DDD (degenerative disc disease) Dyspnea Hx of thyroid nodule Pneumonia Pneumonia due to COVID-19 virus Pneumonitis Renal calculi Surgical History History of umbilical hernia repair Hx of tubal ligation Status post laser lithotripsy of ureteral calculus Family History (Updated 10/21/21 @ 06:30 by Theron Lock MD) Father CVA (cerebral vascular accident) Mother CVA (cerebral vascular accident) Social History Household Members: Spouse Housing: House Do you presently have visiting nurse or other home services: No Alcohol intake: never Patient Tobacco Use Status: Never used Tobacco Advance Directives Date on File: 07/17/20 service: No Review of Systems Const Denies night sweats ENT Denies change in voice, Denies lip swelling, Denies mouth pain, Reports nasal congestion, Reports nasal discharge and Denies tongue swelling Card Denies chest pain and Reports dyspnea on exertion Resp Reports chest congestion, Denies cough, Reports dyspnea on exertion and Reports wheezing GI Denies abdominal pain Musc Denies no additional complaints and Reports back pain Neuro Denies Neuro-related abnormal movements Psych Denies no additional complaints Jordin/Lymph Denies easy bleeding and Denies lymphadenopathy Aller/Immun Denies lip swelling, Denies tongue swelling and Reports wheezing Physical Exam Vital Signs: Last Vital Signs Pulse 62 04/18/23 14:35 BP 122/70 04/18/23 14:35 Pulse Ox 98 04/18/23 14:35 Oxygen Delivery Method Room Air 04/18/23 14:35 BMI result Body Mass Index 20.6 Const General: alert Neck Neck: Yes normal visual inspection, Yes full ROM and Yes no lymphadenopathy Chest Chest palpation & inspection: normal inspection of the chest Resp Auscultation: no crackles, rhonchi, wheezes and diminished lung sounds Cardio Rate: regular rate Rhythm: regular rhythm Heart sounds: S1 normal heart sound present and S2 normal heart sound present GI Palpation (GI): Soft to palpation and nontender Auscultation: normal bowel sounds Skin General skin exam: rashes and/or lesions noted Assessment & Plan Assessment & Plan (1) Abnormality of lung on CXR: Code(s): R91.8 - Other nonspecific abnormal finding of lung field (2) Pneumonitis: Code(s): J18.9 - Pneumonia, unspecified organism Plan: Resolved (3) Dyspnea: Code(s): R06.00 - Dyspnea, unspecified Qualifiers: Dyspnea type: dyspnea on exertion Qualified Code(s): R06.00 - Dyspnea, unspecified Plan: improvong (4) Bronchitis: Comment: post viral bacterial process, may have had RSV Code(s): J40 - Bronchitis, not specified as acute or chronic Plan CXR PFTs Labs/ allergy testing start Prednisone start Doxycycline ERNESTINE as needed nasal spray F/U 2-3 months Orders: Orders Rast Allergen Today J18.9 - Pneumonia, unspecified organism, J45.909 - Uns pecified asthma, uncomplicated Complete Blood Count Auto Diff Today J18.9 - Pneumonia, unspecified organism, J45.909 - Unspecified asthma, uncomplicated Erythrocyte Sedimentation Rate Today J18.9 - Pneumonia, unspecified organism, J45.909 - Unspecified asthma, uncomplicated Hypersensitive Pneumonitis Prf Today J18.9 - Pneumonia, unspecified organism, J45.909 - Unspecified asthma, uncomplicated, R91.8 - Other nonspecific abnormal finding of lung field Immunoglobulin E Today J18.9 - Pneumonia, unspecified organism, J45.909 - Unspecified asthma, uncomplicated Immunoglobulins,IgG IgA IgM Today J18.9 - Pneumonia, unspecified organism, J45.909 - Unspecified asthma, uncomplicated PFT pulmonary function test Today J18.9 - Pneumonia, unspecified organism, J45.909 - Unspecified asthma, uncomplicated XR chest 2V Today J18.9 - Pneumonia, unspecified organism, J45.909 - Unspecified asthma, uncomplicated Medications: New prednisone PO daily; Take 2 daily x 5 days, then 1 daily x 5 days 10 days 15 tabs 0RF doxycycline hyclate 100 mg PO BID 20 caps 0RF 10 days Coding Level of Care Code Est Pt Level 4 (64593) Diagnoses Abnormality of lung on CXR R91.8 Pneumonitis J18.9 Dyspnea R06.00 Dyspnea type: dyspnea on exertion Bronchitis J40 Time Spent (min) 19
[2023-04-18 14:35] VITALS: BP 122/70; PULSE 62; O2SAT 98; BMI 20.6
== END 2023-04-18 15:08 | disposition home or self-care (01) ==
PROVIDERS: Visit Provider Hospitalist
DX: R91.8 Other nonspecific abnormal finding of lung field (principal); J18.9 Pneumonia, unspecified organism; R06.00 Dyspnea, unspecified; J40 Bronchitis, not specified as acute or chronic
CPT/HCPCS: 99214

== ENCOUNTER → 2023-04-18 14:14 | Outpatient (BNVA) | payer BC, SELFPAY | PROVIDERS: Visit Provider Hospitalist ==

== ENCOUNTER 2023-04-19 08:27 | Outpatient (REF) | payer BC, SELFPAY ==
[2023-04-19 09:00] LABS: MANUAL DIFF FLAG NO
[2023-04-19 09:34] LABS: Basophils Absolute Auto 0.1 X10*3/uL (0.0-0.2); Basophils Percent Auto 1.3 % (0-2); Eosinophils Absolute Auto 0.2 X10*3/uL (0.0-0.4); Hematocrit 40.4 % (37.0-47.0); Hemoglobin 12.8 g/dl (12.0-16.0); Imm Gran Abs Auto 0.01 X10*3/uL (0.00-0.03); Imm Gran Pct Auto 0.2 % (0.0-0.4); Lymphocytes Absolute Auto 2.7 X10*3/uL (1.2-4.9); Lymphocytes Percent Auto 49.4 % (20-40); Mean Corpuscular HGB Conc 31.7 g/dl (31.0-35.0); Mean Corpuscular Volume 85.2 fL (80.0-98.0); Mean Platelet Volume 9.8 fL (9.4-12.3); Monocytes Absolute Auto 0.5 X10*3/uL (0.1-1.2); Monocytes Percent Auto 8.8 % (2-11); Neutrophils Percent Auto 37.3 % (45-73); Platelet Count 312 X10*3/uL (160-400); Red Blood Count 4.74 X10*6/uL (4.20-5.50); Red Cell Distribution Width 13.9 % (11.0-16.0); White Blood Count 5.4 X10*3/uL (4.8-10.8)
[2023-04-19 10:14] LABS: Erythrocyte Sedimentation Rate 26 MM/HR (0-20)
[2023-04-21 02:58] LABS: Immunoglobulin E 215 kU/L (<OR=114)
[2023-04-21 16:09] LABS: IgA 676 mg/dL (70-320); IgG 1495 mg/dL (600-1540); IgM 95 mg/dL (50-300)
[2023-04-26 16:08] LABS: Asperg fumigatus Precip Abs NEGATIVE (NEGATIVE); Micropoly faeni Abs NEGATIVE (NEGATIVE); Pigeon serum Abs NEGATIVE (NEGATIVE); Saccharo pora viridis Abs NEGATIVE (NEGATIVE); Thermo candidus Abs NEGATIVE (NEGATIVE); Thermoa vulgaris #1 NEGATIVE (NEGATIVE)
== END 2023-04-19 08:28 | disposition home or self-care (01) ==
LOC: HO.LAB 08:27
PROVIDERS: Visit Provider Hospitalist
DX: J18.9 Pneumonia, unspecified organism (principal); J45.909 Unspecified asthma, uncomplicated; R91.8 Other nonspecific abnormal finding of lung field; Z91.09 Other allergy status, other than to drugs and biological substances
CPT/HCPCS: 36415; 82784; 82785; 85025; 85652; 86003; 86331; 86606; 86609

== ENCOUNTER 2023-06-19 15:52 | Outpatient (AMB) | payer BC, SELFPAY ==
--- NOTE | 2023-06-19 15:55 | MHC.OFFVIS ---
Intake Vital Signs 06/19/23 15:56 Height 4 ft 11 in Weight 105 lb 13.15 oz BMI 21.4 BP 110/60 Blood Pressure Location Rt brachial Position Sitting Pulse 84 Pulse Source Doppler Pulse Oximetry (%) 97 Oxygen Delivery Method Room Air Intake Visit Reasons: cough Allergies Penicillins [PCN] Allergy (Severe, Verified 06/19/23 15:59) SWELLING strawberry [STRAWBERRY] Allergy (Severe, Verified 06/19/23 15:59) ANAPHYLAXIS azithromycin [AZITHROMYCIN] Allergy (Intermediate, Verified 06/19/23 15:59) HIVES/GI UPSET levofloxacin [From LEVAQUIN] Adverse Reaction (Intermediate, Verified 06/19/23 15:59) MUSCLE ACHES/TIGHTNESS HPI HPI Comments History of Present Illness Details The patient is a 62-year-old woman who has a unremarkable past medical history until back in the end of July when she started having symptoms consistent with COVID-19. She was tested positive for COVID-19 on August 04 and did have issues with cough. While she was sick with the COVID she did have worsening shortness of breath. She did have a nebulizer available and she did treat herself with albuterol. Her symptoms did improve some degree. She initially she was very short of breath even going up a flight of stairs. Moderate severity. Also had a significant cough specially when she try taking a deep breath which she was started coughing after doing so. Sometimes the coughing spells could result in some lightheadedness. The patient did undergo a chest x-ray at [facility] which I personally reviewed demonstrating bilateral hazy opacities left more than right primarily at the bases consistent with the COVID 19 pneumonia. The patient has not been coughing any secretions. She denies any fevers or chills. Her pulse oximetry has been good between 97-98%. On examination she still has some crackles. Therefore will treat her with a low-dose prednisone and would be reasonable to give her some doxycycline in the meantime. Will follow up with her chest x-ray and pulmonary function studies. 01/20/2021 the patient is here for pulmonary follow-up visit. She developed COVID back in July and she still complaining of some underlying respiratory complaints and also having significant muscle spasms specially for back. Denies any pleuritic chest discomfort. She still noticing some dyspnea on exertion. Dnhk-ad-sycmsarh severity. Depending on the activity. She went swimming once and she felt very short of breath while she was swimming she was very concerned because she is an avid swimmer. The patient did not have her pulmonary function studies. We did review her CXR from 09/2020 with RLL opacity ?effusion. 05/20/2021 the patient is here for pulmonary follow-up visit. Overall she is feeling better. She is going back to the gym and exercising. She has not noticed any significant limitations from a respiratory status. The patient did not have her follow-up chest x-ray. However, she did have pulmonary function studies that were personally by me. Appears that she does have low normal forced vital capacity and normal total lung capacity. She has a moderate diffusion impairment. Therefore she does have some residual changes that she developed after COVID. We did again review her last chest x-ray demonstrating some slight opacity to the right to based suggesting some degree of thickening of the pleura in addition to pleural effusion. I will have the patient get an x-ray in the next few months. Overall she is clinically doing better. However, if she notices any worsening symptoms she is to call for an earlier visit and have the x-ray at a earlier time. 04/18/2023 the patient is here for pulmonary follow-up visit. the patient just got back from vacation. She became sick. Started developing bronchitis symptoms chest congestion chest tightness. Moderate severity. She was evaluated by primary care doctor and also urgent care. No x-rays were done. The patient was started to have a viral syndrome. She did test negative for COVID-19. She was not given any medication. She did get pwoq-qrk-uwgsthd cough medication. Ultimately ended up getting some codeine cough syrup which is helpful. Still does not feel right. Still having chest tightness. On examination she does have wheezing and some rhonchi. the patient is also congested bringing up some light colored phlegm. We did review her last chest x-ray which was slightly abnormal with a small pleural effusion and atelectasis. In addition to that she did have pulmonary function studies last year demonstrating significant small airways disease in a normal total lung capacity and a moderate diffusion impairment. This is all the results of significant COVID. At this point the patient will be started on a course of antibiotics to treat the bronchitis along with a small dose of prednisone. In addition to that she will have her rescue medication available. Will plan to repeat her chest x-ray and PFTs and follow-up. The patient also has been issues with musty smells and humidity. Will go ahead and requested additional blood work to assess her allergies in immune status. 06/19/2023 the patient is here for pulmonary follow-up visit. Since we last spoke the patient has been feeling better regarding her bronchitis. She did taking medications. Although now she is having increasing cough and nasal congestion. Has a significant postnasal drip. Isn't very bothersome. She is not using any nasal sprays right now. The patient did go to her eye doctor and she was told that she had elevated pressures. But she is not clear about the diagnosis. Sounds of glaucoma. Therefore will avoid anticholinergic therapy which potentially will help her postnasal drip. Will start her on Dymista and also would benefit from Bentson as to minimize cough. We did review her allergy testing. She does have significant allergies to dust mites with an elevated IgE. Her IgA levels were elevated although during that time she did have bronchitis and therefore likely related to the ongoing infection. At some point she should have blood work to follow-up the IgE elevation. The patient also may benefit from a maintenance inhaler. At this time though she is not having significant wheezing so therefore will try the treatment for the upper respiratory cough syndrome. If she is no better we can always put her on a maintenance inhaler. The patient ultimately if she continues to be symptomatic were qualify for biologic therapy such as Xolair. [facility] Medical History (Updated 06/19/23 @ 20:47 by Chris Mckeon MD) Chronic allergic rhinitis Asthma Dyspnea Abnormality of lung on CXR Pneumonitis Pneumonia Cough Pneumonia due to COVID-19 virus Hx of thyroid nodule Allergic rhinitis DDD (degenerative disc disease) Renal calculi Surgical History Status post laser lithotripsy of ureteral calculus History of umbilical hernia repair Hx of tubal ligation Family History (Updated 10/21/21 @ 06:30 by Theron Lock MD) Father CVA (cerebral vascular accident) Mother CVA (cerebral vascular accident) Social History Household Members: Spouse Housing: House Do you presently have visiting nurse or other home services: No Alcohol intake: never Patient Tobacco Use Status: Never used Tobacco Advance Directives Date on File: 07/17/20 service: No Review of Systems Const Denies night sweats ENT Denies change in voice, Denies lip swelling, Denies mouth pain, Reports nasal congestion, Reports nasal discharge, Reports post nasal drip and Denies tongue swelling Card Denies chest pain and Denies dyspnea on exertion Resp Denies chest congestion, Reports cough, Denies dyspnea on exertion and Denies wheezing GI Denies abdominal pain Musc Denies no additional complaints and Reports back pain Neuro Denies Neuro-related abnormal movements Psych Denies no additional complaints Jordin/Lymph Denies easy bleeding and Denies lymphadenopathy Aller/Immun Denies lip swelling, Denies tongue swelling and Denies wheezing Physical Exam Vital Signs: Last Vital Signs Pulse 84 06/19/23 15:56 BP 110/60 06/19/23 15:56 Pulse Ox 97 06/19/23 15:56 Oxygen Delivery Method Room Air 06/19/23 15:56 BMI result Body Mass Index 21.4 Const General: alert HEENT General nose exam: Abnormal mucous membranes and turbinates present boggy Neck Neck: Yes normal visual inspection, Yes full ROM and Yes no lymphadenopathy Chest Chest palpation & inspection: normal inspection of the chest Resp Effort & Inspection: normal respiratory effort Auscultation: clear to auscultation bilaterally, no crackles, no rhonchi and no wheezes Cardio Rate: regular rate Rhythm: regular rhythm Heart sounds: S1 normal heart sound present and S2 normal heart sound present GI Palpation (GI): Soft to palpation and nontender Auscultation: normal bowel sounds Skin General skin exam: rashes and/or lesions noted Assessment & Plan Assessment & Plan (1) Chronic allergic rhinitis: Code(s): J30.9 - Allergic rhinitis, unspecified (2) Asthma: Code(s): J45.909 - Unspecified asthma, uncomplicated Qualifiers: Asthma severity: moderate Asthma persistence: persistent Asthma complication type: uncomplicated Qualified Code(s): J45.40 - Moderate persistent asthma, uncomplicated (3) Dyspnea: Code(s): R06.00 - Dyspnea, unspecified Qualifiers: Dyspnea type: dyspnea on exertion Qualified Code(s): R06.00 - Dyspnea, unspecified Plan: improvong (4) Pneumonitis: Code(s): J18.9 - Pneumonia, unspecified organism Plan: Resolved Plan CXR, need to f/u abnormal CXR start Benzonates as needed start Dymista consider ipratropium nasal spray, but ?dx of glaucoma. Will request Eye care notes ERNESTINE as needed consider maintenance respiratory therapy Allergies to dust mites: hypoallergenic bed covers, minimize carpets and should use vacuum with HEPA filter. F/U 4 months Medications: New benzonatate 200 mg PO BID 30 days PRN 60 caps 5RF cough azelastine-fluticasone 137-50 mcg/spray (Dymista) administer into each nostril 1 spray intranasal BID 23 grams 3RF Coding Level of Care Code Est Pt Level 4 (35139) Diagnoses Chronic allergic rhinitis J30.9 Moderate persistent asthma without complication J45.40 Asthma severity: moderate Asthma persistence: persistent Asthma complication type: uncomplicated Dyspnea on exertion R06.00 Dyspnea type: dyspnea on exertion Pneumonitis J18.9 Time Spent (min) 18
[2023-06-19 15:56] VITALS: BP 110/60; PULSE 84; O2SAT 97; BMI 21.4
== END 2023-06-19 16:15 | disposition home or self-care (01) ==
PROVIDERS: PCP Nurse Practitioner Gerontology; Visit Provider Hospitalist
DX: J30.9 Allergic rhinitis, unspecified (principal); J45.40 Moderate persistent asthma, uncomplicated; R06.00 Dyspnea, unspecified; J18.9 Pneumonia, unspecified organism
CPT/HCPCS: 99214

== ENCOUNTER → 2023-06-19 15:52 | Outpatient (BNVA) | payer BC, SELFPAY | PROVIDERS: PCP Nurse Practitioner Gerontology; Visit Provider Hospitalist | DX: J45.909 Unspecified asthma, uncomplicated (principal); J18.9 Pneumonia, unspecified organism ==

== ENCOUNTER 2023-12-17 14:01 | Emergency (ER) | payer OTHER, SELFPAY ==
--- NOTE | ~2023-12-17 | CT_ITS ---
EXAMINATION: CT ABDOMEN AND PELVIS WITHOUT CONTRAST CLINICAL INFORMATION: 4 mm stone. Worsening pain. COMPARISON: Renal ultrasound March [address] 2018 TECHNIQUE: Multidetector volumetric imaging was performed from the superior aspect of the liver through the pubic symphysis. Sagittal and coronal reformatted images were obtained on the technologist's workstation. This CT examination was performed using dose optimization techniques as appropriate, variously including the following: *Automated exposure control *Adjustment of mA and/or kV according to patient size (this includes techniques or standardized protocols for targeted exams where dose is matched to indication/reason for exam; i.e. extremities or head) *Use of iterative reconstruction technique DLP: 286 mGy-cm FINDINGS: LUNG BASES: Chronic subsegmental atelectasis in the right middle lobe. LIVER, GALLBLADDER, AND BILIARY TREE: The liver is normal in size, shape, and attenuation. No focal hepatic lesion or biliary ductal dilatation is present. The gallbladder is unremarkable with no evidence of radiopaque gallstones, gallbladder wall thickening, or obvious pericholecystic inflammatory changes. PANCREAS: Unremarkable. SPLEEN: Unremarkable. ADRENAL GLANDS: Unremarkable. KIDNEYS AND URETERS: Moderate left hydronephrosis from a 4 mm left proximal ureteral stone. 4 mm left upper pole stone. Small punctate 1 to 2 mm nonobstructing bilateral renal stones. No right hydronephrosis. Bilateral peripelvic cysts. BLADDER: Unremarkable. GASTROINTESTINAL TRACT: Diverticulosis of the colon. The small and large bowel are otherwise unremarkable. The appendix is unremarkable. ABDOMINAL WALL: No significant hernia is appreciated. LYMPH NODES: Normal. VASCULAR: Unremarkable. PELVIC VISCERA: Trace fluid in the pelvis. OSSEOUS STRUCTURES: L2 Schmorl's nodes. CT/CT abdomen pelvis wo IV con IMPRESSION: Mild left hydronephrosis from a 4 mm left proximal ureteral stone. Bilateral renal stones. Fleischner guidelines were followed.
[2023-12-17 14:30] VITALS: BP 121/45; PULSE 80; RESP 16; TEMP 37.1; O2SAT 95; BMI 20.6
--- NOTE | 2023-12-17 14:31 | ED_ITS ---
HPI - Female Genitourinary General Chief complaint: Urogenital-Female Stated complaint: ? Kidney Stone Time Seen by Provider: 12/17/23 17:42 Source: patient Mode of arrival: ambulatory Limitations: no limitations History of Present Illness HPI Narrative: 62-year-old female with a past medical history of chronic rhinitis, asthma, pneumonia, renal calculi, degenerative disc disease who presents emergency department for evaluation of left flank pain. The patient states that she developed sudden onset of left flank pain on 11/17/2023 (2 days prior to evaluation). Patient states she has a history of kidney stones and was seen at [facility] and diagnosed with a 4 mm left kidney stone. She was started on ibuprofen, oxycodone and tamsulosin. She states that she has been taking the ibuprofen and tamsulosin but is not taking the oxycodone she was concerned about getting addicted the oxycodone. She states that her pain got worse today and is 10/10. Her pain is located in her left flank area. She states that she had a subjective fever and shaking chills at home. She denied dysuria but has peeing frequently since she has been increasing the amount of fluid that she is drinking. Patient states she is required lithotripsy in the past for kidney stones. She states that 1 month prior she passed a kidney stone. Related Data Home Medications ?Medication ?Instructions ?Recorded ?Confirmed cholecalciferol (vitamin D3) 50 50 mcg PO DAILY 07/13/20 10/20/21 mcg (2,000 unit) capsule (Vitamin D3) Previous Rx's ?Medication ?Instructions ?Recorded acetaminophen 325 mg capsule 650 mg (2 x 325 mg) PO Q6H PRN 10/22/21 (Tylenol) headache #10 caps atorvastatin 40 mg tablet 40 mg PO BEDTIME #30 tabs 10/22/21 doxycycline hyclate 100 mg capsule 100 mg PO BID 10 days #20 caps 04/18/23 prednisone 10 mg tablet See Rx Instructions PO DAILY 10 04/18/23 days #15 tabs azelastine 137 mcg-fluticasone 50 1 spray intranasal BID #23 grams 06/19/23 mcg/spray nasal spray (Dymista) benzonatate 200 mg capsule 200 mg PO BID PRN cough 30 days 07/28/23 #60 caps morphine 15 mg tablet,extended 15 mg PO Q6H PRN pain #14 tabs 12/17/23 release Allergies Allergy/AdvReac Type Severity Reaction Status Date / Time Penicillins [PCN] Allergy Severe SWELLING Verified 12/17/23 14:36 strawberry [STRAWBERRY] Allergy Severe ANAPHYLAXIS Verified 12/17/23 14:36 azithromycin [AZITHROMYCIN] Allergy Intermediate HIVES/GI Verified 12/17/23 14:36 UPSET levofloxacin [From LEVAQUIN] AdvReac Intermediate MUSCLE Verified 12/17/23 14:36 ACHES/TIGHTNESS Review of Systems 2 Review of Systems: Yes all other systems are reviewed and are negative [facility] Past Medical History [facility] Narrative: Social history: She denies tobacco, alcohol and drug use. She is here in the emergency department with her . Medical History (Updated 12/17/23 @ 21:26 by Jad Medina MD) Chronic allergic rhinitis Asthma Dyspnea Abnormality of lung on CXR Pneumonitis Pneumonia Cough Pneumonia due to COVID-19 virus Hx of thyroid nodule Allergic rhinitis DDD (degenerative disc disease) Renal calculi Surgical History Status post laser lithotripsy of ureteral calculus History of umbilical hernia repair Hx of tubal ligation Family History Family History (Updated 10/21/21 @ 06:30 by Theron Lock MD) Father CVA (cerebral vascular accident) Mother CVA (cerebral vascular accident) Social History Social History Household Members: Spouse Housing: House Do you presently have visiting nurse or other home services: No Alcohol intake: never Patient Tobacco Use Status: Never used Tobacco Use of substances other than those prescribed or required for medical reasons: No Advance Directives: No Advance Directives Information Provided: Yes Advance Directives Date on File: 07/17/20 Do you have a plan to hurt others: No Plan Patient : No service: No Physical Exam 2 Vital Signs: Vital Signs: Last Vital Signs Temp 99.8 F 12/17/23 17:12 Pulse 82 12/17/23 17:12 Resp 16 12/17/23 17:12 BP 133/52 L 12/17/23 17:12 Pulse Ox 98 12/17/23 17:12 O2 Del Method Room Air 12/17/23 17:12 BMI result Body Mass Index 20.6 Course Course Course Narrative: This is an RME performed by Viridiana Cruz CNP: Additional HPI, ROS, PE not included below will be deferred to primary provider. Patient is a 62 old female who presents emergency department for evaluation of worsening left abdominal pain. She reports that she was seen at [facility] 2 days ago and diagnosed with a kidney stone, per discharge paperwork it was 4 mm in size. She was given prescription for ibuprofen Flomax and oxycodone. She took an oxycodone last night. However her pain feels increasingly worse today. Plan: Medications Administered Discontinued Medications Generic Name Dose Route Start Last Admin Trade Name Freq PRN Reason Stop Dose Admin Sodium Chloride 1,000 mls @ 999 mls/hr 12/17/23 17:56 12/17/23 18:16 Ns IV 12/17/23 18:56 999 mls/hr .Q1H1M STA Administration Ketorolac Tromethamine 15 mg 12/17/23 17:56 12/17/23 18:15 Ketorolac Tromethamine 15 Mg/Ml Vial IVPUSH 12/17/23 17:57 15 mg ONCE STA Administration Morphine Sulfate 4 mg 12/17/23 17:56 12/17/23 18:15 Morphine Sulfate 4 Mg/Ml Cartridge IVPUSH 12/17/23 17:57 4 mg ONCE STA Administration Protocol Medical Decision Making Medical Decision Making MDM Narrative: 62-year-old female with a past medical history of chronic rhinitis, asthma, pneumonia, renal calculi, degenerative disc disease who presents emergency department for evaluation of left flank pain. The patient states that she developed sudden onset of left flank pain on 11/17/2023 (2 days prior to evaluation), she was seen at [facility] and diagnosed with a 4 mm left ureteral stone, started on oxycodone. She has been taking ibuprofen and tamsulosin with no relief for pain. Her pain got worse today therefore she came to emergency department for evaluation . She did have subjective fever and chills at home with no dysuria. She states that she has had lithotripsy in the past and states that she passed a kidney stone 1 month prior. Vital signs were normal. Physical examination did reveal left lower quadrant and left CVA tenderness. Differential diagnosis: ?Includes but is not limited to renal/ureteral colic, ureteral stone, urinary tract infection, pyelonephritis, electrolyte abnormalities, anemia Following evaluation was ordered: CBC, CMP, urinalysis, CT scan of the abdomen pelvis with IV contrast Patient was initially treated with the following: IV insert, morphine 4 mg IV, Toradol 15 mg IV, normal saline x1 L Course: 21:17 My interpretation of the patient's laboratory evaluation is as follows: CBC was normal. CMP was normal except for an elevated glucose of 137. Urinalysis was negative. CT scan of the abdomen pelvis did reveal a 4 mm proximal stone. I did obtain the report from [facility] which states that patient had a 4 mm obstructing calculus in the most proximal portion of the left ureter with resulting mild to moderate left hydronephrosis. At this time, the patient states she is willing to go home with a prescription for morphine and see if she can pass the stone. I did tell her to stop taking oxycodone and did not take it with morphine. She was advised to continue taking the tamsulosin and Zofran. Patient will be referred to our urologist, Dr. Curtis Admission/Observation Consideration of admission/observation: Escalation of care including admission/observation considered Lab Data MDM Lab Attestation statement: I reviewed the patient's lab results. 12/17/23 15:22 12/17/23 15:22 Labs: Lab Results 12/17/23 Range/Units 15:22 WBC 8.7 (4.8-10.8) X10*3/uL RBC 4.50 (4.20-5.50) X10*6/uL Hgb 12.4 (12.0-16.0) g/dl Hct 37.6 (37.0-47.0) % MCV 83.6 (80.0-98.0) fL MCH 27.6 (27.0-33.0) pg MCHC 33.0 (31.0-35.0) g/dl RDW 14.0 (11.0-16.0) % Plt Count 268 (160-400) X10*3/uL MPV 9.4 (9.4-12.3) fL Immature Gran % (Auto) 0.3 (0.0-0.4) % Neut % (Auto) 74.7 H (45-73) % Lymph % (Auto) 15.3 L (20-40) % [place] % (Auto) 8.9 (2-11) % Eos % (Auto) 0.3 (0-4) % Baso % (Auto) 0.5 (0-2) % Lymph # (Auto) 1.3 (1.2-4.9) X10*3/uL [place] # (Auto) 0.8 (0.1-1.2) X10*3/uL Eos # (Auto) 0.0 (0.0-0.4) X10*3/uL Baso # (Auto) 0.0 (0.0-0.2) X10*3/uL Abs Immat Gran (auto) 0.03 (0.00-0.03) X10*3/uL Absolute Neuts (auto) 6.5 (2.0-8.3) x10*3/uL Absolute Nucleated RBC 0.000 (0.0-0.012) X10*3/uL Nucleated RBC % (auto) 0.0 (0.0-0.2) /100WBC Sodium 139 (135-145) mmol/L Potassium 4.0 (3.3-5.1) mmol/L Chloride 105 (96-108) mmol/L Carbon Dioxide 23 (22-29) mmol/L Anion Gap 15 (12-20) BUN 15 (9-16) mg/dL Creatinine 1.11 (0.5-1.4) mg/dL Estim Creat Clear Calc 34.9 Estimated GFR 49 Random Glucose 136 H (60-115) mg/dL Calcium 9.4 (8.4-10.2) mg/dL Total Bilirubin 0.6 (0.0-1.0) mg/dL AST 21 (5-31) U/L ALT 22 (0-31) U/L Alkaline Phosphatase 77 (39-117) U/L Total Protein 7.6 (6.5-8.0) g/dL Albumin 3.8 (3.5-5.0) g/dL Urine Color Yellow Urine Appearance Clear Urine pH 5.5 (5.0-9.0) Ur Specific [place] 1.015 (1.005-1.025) Urine Protein Negative (Neg-Trace) mg/dL Urine Glucose (UA) Negative (Negative) mg/dL Urine Ketones Negative (Negative) mg/dL Urine Blood Negative (Negative) Urine Nitrite Negative (Negative) Ur Leukocyte Esterase Negative (Negative) Radiology Impression Discussion of test interpretation with radiology: I have reviewed the radiologist's reading. Radiologist Impression: CT abdomen pelvis wo IV con IMPRESSION: Mild left hydronephrosis from a 4 mm left proximal ureteral stone. Bilateral renal stones. Fleischner guidelines were followed. Dictated By: Mady Pickett MD Independent Historian Clinical information obtained from an independent historian. History obtained from or confirmed by: Spouse External Record Review External record reviewed: Outside ED record (Discharge summary from [facility]) Prescription Management I considered prescription management with: Pain Medication Chronic Conditions Patient?s care impacted by: Other (Asthma) Discharge Plan Discharge Clinical Impression: Left ureteral stone, Colic, ureteral Patient Disposition: Home, Self-Care Instructions: Ureteral Stones (ED) Additional Instructions: Your blood work was normal. Your urine is normal with no evidence of infection The CT scan revealed that you have a 4 mm stone in the proximal ureter which means that the stone is closer to kidney then to the bladder. This is similar to the reading that you had at [facility]. Stop taking oxycodone Take ibuprofen 200 mg pills, 2 pills every 6 hours as needed for pain. Take Tylenol (acetaminophen) 2 pills every 6 hours as needed for pain. For pain not relieved by ibuprofen or Tylenol take morphine 15 mg pills, 1 pill every 6 hours as needed for pain. This medication will make you sleepy, do not drive or work while taking this medication. Morphine is a narcotic medication and can be addicting. If you are concerned about addiction you can ask the pharmacist for less pills or do not get this prescription filled. Continue taking the tamsulosin Follow-up with our on-call urologist, Dr. Curtis within 1 week. Please return to the emergency department if your symptoms get worse or if you develop any symptoms that are concerning to you. I sent your prescription to the [facility] pharmacy on [address] in [place], this is a 24 hour pharmacy. Prescriptions: New morphine 15 mg tablet extended release 15 mg PO Q6H PRN (Reason: pain) Qty: 14 0RF Rx Instructions: Partial Fill upon patient request. No Action benzonatate 200 mg capsule 200 mg PO BID PRN (Reason: cough) 30 Days Qty: 60 5RF cholecalciferol (vitamin D3) [Vitamin D3] 50 mcg (2,000 unit) Capsule 50 mcg PO DAILY atorvastatin 40 mg tablet 40 mg PO BEDTIME Qty: 30 0RF acetaminophen [Tylenol] 325 mg capsule 650 mg PO Q6H PRN (Reason: headache) Qty: 10 0RF prednisone 10 mg tablet See Rx Instructions PO DAILY 10 Days Qty: 15 0RF Rx Instructions: PO daily; Take 2 daily x 5 days, then 1 daily x 5 days doxycycline hyclate 100 mg capsule 100 mg PO BID 10 Days Qty: 20 0RF azelastine-fluticasone [Dymista] 137-50 mcg/spray spray,non-aerosol 1 spray intranasal BID Qty: 23 3RF Rx Instructions: administer into each nostril Referrals: John Curtis MD [Physician] - 1 week (Left 4 mm proximal ureteral stone) Print Language: Bulgarian
[2023-12-17 15:28] LABS: Basophils Percent Auto 0.5 % (0-2); Eosinophils Percent Auto 0.3 % (0-4); Hematocrit 37.6 % (37.0-47.0); Hemoglobin 12.4 g/dl (12.0-16.0); Imm Gran Abs Auto 0.03 X10*3/uL (0.00-0.03); Imm Gran Pct Auto 0.3 % (0.0-0.4); Lymphocytes Absolute Auto 1.3 X10*3/uL (1.2-4.9); Lymphocytes Percent Auto 15.3 % (20-40); MANUAL DIFF FLAG NO; Mean Corpuscular Hemoglobin 27.6 pg (27.0-33.0); Mean Corpuscular Volume 83.6 fL (80.0-98.0); Mean Platelet Volume 9.4 fL (9.4-12.3); Monocytes Absolute Auto 0.8 X10*3/uL (0.1-1.2); Monocytes Percent Auto 8.9 % (2-11); Neutrophils Absolute Auto 6.5 x10*3/uL (2.0-8.3); Neutrophils Percent Auto 74.7 % (45-73); Platelet Count 268 X10*3/uL (160-400); White Blood Count 8.7 X10*3/uL (4.8-10.8)
[2023-12-17 15:30] LABS: Appearance Urine Clear; Color Urine Yellow; Glucose Urine UA Negative (Negative); Leukocyte Esterase Urine Negative (Negative); Nitrite Urine Negative (Negative); PH 5.5 (5.0-9.0); Specific Gravity - Urine 1.015 (1.005-1.025); Urine Blood Negative (Negative); Urine Ketones Negative (Negative); Urine Protein Negative (Neg-Trace)
[2023-12-17 15:43] LABS: Alanine Aminotransferase 22 U/L (0-31); Albumin Level 3.8 g/dL (3.5-5.0); Alkaline Phosphatase 77 U/L (39-117); Anion Gap 15 (12-20); Aspartate Amino Transferase 21 U/L (5-31); Bilirubin Total 0.6 mg/dL (0.0-1.0); Blood Urea Nitrogen 15 mg/dL (9-16); Calcium 9.4 mg/dL (8.4-10.2); Carbon Dioxide 23 mmol/L (22-29); Chloride 105 mmol/L (96-108); Creatinine Clr Calc Pharmacy 34.9; Estimated Glomerular Filt Rate 49; Glucose Random 136 mg/dL (60-115); Sodium 139 mmol/L (135-145); Total Protein 7.6 g/dL (6.5-8.0)
[2023-12-17 17:12] VITALS: BP 133/52; PULSE 82; RESP 16; TEMP 37.7; O2SAT 98
--- NOTE | 2023-12-17 17:39 | PC.NURSE ---
Pt brought in from waiting room, pt was seen at [facility] for a kidney stone, and told to follow up with primary doctor on monday. Although pain has been increasingly getting worse, reporting 10/10 left stabbing flank pain. at bedside. Provider made aware of pain. Awaiting new orders.
[2023-12-17] MEDS: Morphine Sulfate 4 MG/ML CARTRIDGE IVPUSH ×2 (18:15→21:34)
[2023-12-17] MEDS: Ketorolac Tromethamine 15 MG/ML VIAL IVPUSH (18:15)
[2023-12-17] MEDS: 0.9 % Sodium Chloride 1,000 ML 999 ML IV (18:16)
--- NOTE | 2023-12-17 19:35 | PC.NURSE ---
Assumed care of the pt at 1900. Pt resting comfortably in bed, reporting decreased pain at a 7. Pt requested to go to the bathroom and was assisted in doing so. Pt assisted back to bed and connected to fluids, approx 200mL left in bag. 20g IV in tact in the left AC. Pt has no other complaints at this time.
[2023-12-17 21:42] VITALS: BP 133/52; PULSE 82; RESP 16; TEMP 37.7; O2SAT 98
== END 2023-12-17 22:00 | disposition home or self-care (01) ==
PROVIDERS: Nurse Practitioner Family; Emergency Provider Emergency Medicine Emergency Medical Services; PCP Nurse Practitioner Gerontology
DX: N20.1 Calculus of ureter (principal); Z87.442 Personal history of urinary calculi
CPT/HCPCS: 36415; 74176; 80053; 81003; 85025; 96361; 96374; 96375; 96376; 99284; 99285; J1885; J2270

== ENCOUNTER 2023-12-20 14:57 | Outpatient (AMB) | payer MEDICARE, SELFPAY ==
--- NOTE | 2023-12-20 15:02 | A.OFFVIS_ITS ---
Intake Visit Reasons: Left stone/ Left hydro Intake Note: New Patient presents for initial visit for left stone and left hydro Urology Medications: none Blood Thinner:none Medical Coding Auditor Required: No Accompanied by: Self / Same As Patient Allergies Penicillins [PCN] Allergy (Severe, Verified 12/20/23 15:08) SWELLING strawberry [STRAWBERRY] Allergy (Severe, Verified 12/20/23 15:08) ANAPHYLAXIS azithromycin [AZITHROMYCIN] Allergy (Intermediate, Verified 12/20/23 15:08) HIVES/GI UPSET levofloxacin [From LEVAQUIN] Adverse Reaction (Intermediate, Verified 12/20/23 15:08) MUSCLE ACHES/TIGHTNESS HPI Comments Details: Amanda is a very pleasant female. She is a patient of . She is seen for the following urologic conditions - nephrolithiasis Nephrolithiasis Recurrent Recent presentation to emergency with left upper ureteric stone and left midpole stone CT - Moderate left hydronephrosis from a 4 mm left proximal ureteral stone. 4 mm left upper pole stone. Small punctate 1 to 2 mm nonobstructing bilateral renal stones. No right hydronephrosis. Bilateral peripelvic cysts Recommend intervention with ureteroscopy and laser lithotripsy [facility] Medical History (Updated 12/20/23 @ 15:23 by John Curtis MD) Chronic allergic rhinitis Asthma Dyspnea Abnormality of lung on CXR Pneumonitis Pneumonia Cough Pneumonia due to COVID-19 virus Hx of thyroid nodule Allergic rhinitis DDD (degenerative disc disease) Renal calculi Surgical History Status post laser lithotripsy of ureteral calculus History of umbilical hernia repair Hx of tubal ligation Family History Father CVA (cerebral vascular accident) Mother CVA (cerebral vascular accident) Social History Household Members: Spouse Housing: House Do you presently have visiting nurse or other home services: No Alcohol intake: never Patient Tobacco Use Status: Never used Tobacco Advance Directives Date on File: 07/17/20 service: No Review of Systems Const Denies chills and Denies fever(s) Card Reports no additional complaints and Denies syncope Resp Denies cough GI Denies abdominal pain and Denies heartburn Reports as per HPI and Denies change in libido Neuro Denies syncope Psych Denies change in libido Endo Denies change in libido Physical Exam Const General: cooperative, healthy appearing, comfortable and no acute distress Orientation/consciousness: patient oriented x3 HEENT Face and sinus: Yes normal facial exam Mouth: moist mucous membranes Neck Neck: Yes normal visual inspection, Yes full ROM and Yes trachea midline Chest Chest palpation & inspection: normal inspection of the chest Resp Effort & Inspection: normal respiratory effort, able to speak in complete sentences and no respiratory distress GI Inspection: Yes normal to inspection Back/Spine/Pelvis Cervical Spine: normal cervical lordosis Thoracic/Lumbar Spine: thoracic and lumbar spine normal to inspection Skin General skin exam: no rashes or lesions noted Neuro General: patient oriented x3, gait normal, tone normal and moves all extremities Extrem General: Yes normal to inspection and Yes capillary refill normal Assessment & Plan Assessment & Plan (1) Renal calculi: Code(s): N20.0 - Calculus of kidney Category: Medical Plan Ureteroscopy We discussed the nature of the decision and reasonable alternatives for performing ureteroscopy. Options such as medical therapy were discussed. Interventions include chemical dissolution, ESWL, ureteroscopy with laser lithotripsy and stent placement, PCNL. The relative uncertainties and benefits related to each alternate procedure were adequately discussed. General surgical risks including, but not limited to - pain, bleeding, infection, myocardial infarction, pulmonary embolus, deep vein thrombosis and cerebrovascular accident which may result in further hospitalization were discussed. Full disclosure of the procedure as well as all major risks, benefits and complications were discussed including but not limited to damage to the urethra, bladder and kidney infection, damage to the ureter, stent migration or malposition, scarring to the renal pelvis, remnant stone fragments, subsequent stone passage with need for secondary procedures. The overall secondary procedure rate is approximately 10-15%. The overall clearance rate is approximately 90-95%. Success of the procedure in the short-term does not necessarily guarantee that long-term success will be maintained. Suitable follow up will need to be maintained. The patient showed understanding of discussion and wishes to proceed with - cystoscopy, retrograde, ureteroscopy, possible lithotripsy/stone basketing and stent on the left side Patient Instructions: Imaging studies, laboratory and physical exam results were discussed and reviewed in detail. No major barriers to patient understanding were identified. An opportunity to ask questions regarding the treatment plan was provided. All questions were answered. The patient expressed understanding and agreement with the above treatment plan. The patient is aware they should contact our office by phone for worsening of their current condition or the appearance of new urologic symptoms. Compliance is encouraged with any medications and followup testing that is ordered. It is a privilege to participate in the urologic care of your patient. If you have any questions or concerns regarding treatment for the above conditions, or other urologic issues, please do not hesitate to contact me. The office telephone contact is [phone]. This note is constructed using voice recognition software. While every effort has been made to ensure accuracy peanut separator errors may have been included. Yours sincerely, Dr John Curtis MD, [facility] - Urology Providers of Expert, Compassionate Care for the Genitourinary System Coding Level of Care Code New Pt Level 4 (93244) Diagnoses Renal calculi N20.0
== END 2023-12-20 15:23 | disposition home or self-care (01) ==
PROVIDERS: PCP Nurse Practitioner Gerontology; Visit Provider Urology
DX: N20.0 Calculus of kidney (principal)
CPT/HCPCS: 99204

== ENCOUNTER → 2023-12-20 14:57 | Outpatient (BNVA) | payer OTHER, SELFPAY | PROVIDERS: PCP Nurse Practitioner Gerontology; Visit Provider Urology | DX: N20.0 Calculus of kidney (principal) | CPT/HCPCS: 99202 ==

== ENCOUNTER 2023-12-25 13:45 | Day surgery (SDC) | payer MEDICARE, OTHER, SELFPAY ==
--- NOTE | ~2023-12-25 | FL_ITS ---
EXAMINATION: XR FLUOROSCOPY WITH IMAGES CLINICAL INFORMATION: Cystoscopy, ureteroscopy and left retrograde. COMPARISON: None available. TECHNIQUE: Fluoroscopy Supervised By: Dr. Curtis. Fluoroscopy Time: 20.8 sec. Cumulative Dose: 2.87 mGy. DAP: No DAP Images: 2. FINDINGS: Intraoperative fluoroscopy and spot films were performed during a procedure in the OR. Images demonstrate placement of an internally dwelling left double-J stent. Please see Dr. Curtis's report for complete details. FL/FL guidance in OR IMPRESSION: Intraoperative fluoroscopy and spot films were obtained. Please see Dr. Curtis's report for complete details.
[2023-12-25 13:59] VITALS: BMI 20.6
[2023-12-25 14:03] VITALS: BP 104/50; PULSE 69; RESP 18; TEMP 36.9; O2SAT 97
[2023-12-25] MEDS: Lactated Ringers 1,000 ML 50 ML IVCONT (14:24)
--- NOTE | 2023-12-25 14:56 | PC.NURSE ---
report given to Viridiana Alvarado RN, call devine in place t=v in reach.
--- NOTE | 2023-12-25 17:05 | MHC.SHP ---
Pre-Procedural Eval Section A - 24 Hr Update-Section A only Date of Service: 12/25/23 The patient is an INPATIENT: No Changes since office visit: No Cold of Flu in the past 2 weeks, No New Medical Problems, No Changes in Medication and No Patient answered all questions The patient has been examined within 24 hours of the surgical procedure. The History & Physical has been completed within 30 days and I have reviewed it.: Yes Section B - Complete if H&P > 30 days Chief Complaint: Calculus of kidney Details of Present Illness: Cystoscopy, left retrograde, left ureteroscopy with laser lithotripsy stent placement Allergies: Allergies Allergy/AdvReac Type Severity Reaction Status Date / Time Penicillins [PCN] Allergy Severe SWELLING Verified 12/20/23 15:08 strawberry [STRAWBERRY] Allergy Severe ANAPHYLAXIS Verified 12/20/23 15:08 azithromycin [AZITHROMYCIN] Allergy Intermediate HIVES/GI Verified 12/20/23 15:08 UPSET levofloxacin [From LEVAQUIN] AdvReac Intermediate MUSCLE Verified 12/20/23 15:08 ACHES/TIGHTNESS Review of Systems Sugical H&P ROS: Negative: Constitution, Cardiovascular, Respiratory, Neurological, Psychiatric, Hem-Onc, Allergic/Immunologic, Gastrointestinal, Genitourinary, Musculoskeletal, Integumentary, Endocrine and Eyes/Ears/Nose/Throat Exam Surgical H&P Exam: Normal: HEENT, Normal: Heart, Normal: Lungs, Normal: Extremities, Normal: Abdomen, Normal: Skin and Normal: Neurological Plan Diagnosis/Plan: Unchanged (Cystoscopy, left retrograde, ureteroscopy with stent placement) I have reviewed the history and physical and performed a pertinent physical examination on my patient. No changes have occurred unless specified. Time Spent With Patient Time: Total time managing care of this patient today ____ minutes.
--- NOTE | 2023-12-25 17:09 | HO.ANESPROP2 ---
PENDING SALE TO [facility] Active Problems Active Problems: All Active Problems Renal calculi (Acute) Chronic allergic rhinitis (Acute) Bronchitis (Acute) Asthma (Acute) Adjustment disorder with anxious mood (Acute) Elevated blood pressure reading (Acute) Headache (Acute) CVA (cerebral vascular accident) (Acute) Lacunar infarction (Acute) Dyspnea (Acute) Abnormality of lung on CXR (Acute) Pneumonitis (Acute) Pneumonia (Acute) Cough (Acute) Pneumonia due to COVID-19 virus (Acute) Past Medical History Medical History (Updated 12/20/23 @ 15:23 by John Curtis MD) Chronic allergic rhinitis Asthma Dyspnea Abnormality of lung on CXR Pneumonitis Pneumonia Cough Pneumonia due to COVID-19 virus Hx of thyroid nodule Allergic rhinitis DDD (degenerative disc disease) Renal calculi Family History Family History Father CVA (cerebral vascular accident) Mother CVA (cerebral vascular accident) Family history of problems with anesthesia: No Surgical History Surgical History Status post laser lithotripsy of ureteral calculus History of umbilical hernia repair Hx of tubal ligation History of Problems with Anesthesia: Yes (ponv) Social History Social History Household Members: Spouse Housing: House Do you presently have visiting nurse or other home services: No Alcohol intake: never Patient Tobacco Use Status: Never used Tobacco Use of substances other than those prescribed or required for medical reasons: No Are you DNR?: No Advance Directives: No Advance Directives Information Provided: Yes Advance Directives Date on File: 07/17/20 service: No Meds Allergies Allergy/AdvReac Type Severity Reaction Status Date / Time Penicillins [PCN] Allergy Severe SWELLING Verified 12/20/23 15:08 strawberry [STRAWBERRY] Allergy Severe ANAPHYLAXIS Verified 12/20/23 15:08 azithromycin [AZITHROMYCIN] Allergy Intermediate HIVES/GI Verified 12/20/23 15:08 UPSET levofloxacin [From LEVAQUIN] AdvReac Intermediate MUSCLE Verified 12/20/23 15:08 ACHES/TIGHTNESS Active Medications: Current Medications Lactated Ringer's (Lr) 1,000 mls @ 50 mls/hr IVCONT .Q20H IVONNE Last Admin: 12/25/23 14:24 Dose: 50 mls/hr Home Medications ?Medication ?Instructions ?Recorded ?Confirmed ?Last Taken ?Type ibuprofen 600 mg tablet 600 mg PO Q6H PRN pain 12/20/23 12/25/23 Unknown History oxycodone 5 mg tablet 5 mg PO QID PRN pain 12/20/23 12/25/23 Unknown History tamsulosin 0.4 mg capsule 0.4 mg PO DAILY 12/20/23 12/25/23 Unknown History Exam Height,Weight and Vital Signs: Height 4 ft 11 in Weight 46.266 kg Last Vital Signs Temp 98.5 F 12/25/23 14:03 Pulse 69 12/25/23 14:03 Resp 18 12/25/23 14:03 BP 104/50 L 12/25/23 14:03 Pulse Ox 97 12/25/23 14:03 O2 Del Method Room Air 12/25/23 14:03 Airway Mallampati Class: II TM Dist: >3cm Neck ROM: Full Loose/Missing/Broken Teeth: No Heart: rrr Lungs: cta Assessment and Plan Assessment Anesthesia Assessment: Anesthesia Plan Discussed Final Anesthetic Review Family History of Problems with Anesthesia: No History of Problems with Anesthesia: Yes (ponv) NPO: Yes ASA Class: II Final Preanesthetic Review: No Changes in Pt Med Stat, Meds/Allgs Chart Reviewed, Consent Obtained/Reviewed and Anes Risks/Benef Reviewed Patient Risk: Low Procedure Risk: Low Anesthetic Plan Anesthetic Plan: GA Disposition: Standard PACU
--- NOTE | 2023-12-25 18:02 | HO.ANESPROP2 ---
[facility] Active Problems Active Problems: All Active Problems Renal calculi (Acute) Chronic allergic rhinitis (Acute) Bronchitis (Acute) Asthma (Acute) Adjustment disorder with anxious mood (Acute) Elevated blood pressure reading (Acute) Headache (Acute) CVA (cerebral vascular accident) (Acute) Lacunar infarction (Acute) Dyspnea (Acute) Abnormality of lung on CXR (Acute) Pneumonitis (Acute) Pneumonia (Acute) Cough (Acute) Pneumonia due to COVID-19 virus (Acute) Past Medical History Medical History Chronic allergic rhinitis Asthma Dyspnea Abnormality of lung on CXR Pneumonitis Pneumonia Cough Pneumonia due to COVID-19 virus Hx of thyroid nodule Allergic rhinitis DDD (degenerative disc disease) Renal calculi Functional capacity: independent ambulation Patient : No Family History Family History Father CVA (cerebral vascular accident) Mother CVA (cerebral vascular accident) Family history of problems with anesthesia: No Surgical History Surgical History Status post laser lithotripsy of ureteral calculus History of umbilical hernia repair Hx of tubal ligation History of Problems with Anesthesia: Yes (ponv) Social History Social History Household Members: Spouse Housing: House Do you presently have visiting nurse or other home services: No Alcohol intake: never Patient Tobacco Use Status: Never used Tobacco Use of substances other than those prescribed or required for medical reasons: No Are you DNR?: No Advance Directives: No Advance Directives Information Provided: Yes Advance Directives Date on File: 07/17/20 service: No Meds Allergies Allergy/AdvReac Type Severity Reaction Status Date / Time Penicillins [PCN] Allergy Severe SWELLING Verified 12/20/23 15:08 strawberry [STRAWBERRY] Allergy Severe ANAPHYLAXIS Verified 12/20/23 15:08 azithromycin [AZITHROMYCIN] Allergy Intermediate HIVES/GI Verified 12/20/23 15:08 UPSET levofloxacin [From LEVAQUIN] AdvReac Intermediate MUSCLE Verified 12/20/23 15:08 ACHES/TIGHTNESS Active Medications: Current Medications Lactated Ringer's (Lr) 1,000 mls @ 50 mls/hr IVCONT .Q20H IVONNE Last Admin: 12/25/23 14:24 Dose: 50 mls/hr Home Medications ?Medication ?Instructions ?Recorded ?Confirmed ?Last Taken ?Type ibuprofen 600 mg tablet 600 mg PO Q6H PRN pain 12/20/23 12/25/23 Unknown History oxycodone 5 mg tablet 5 mg PO QID PRN pain 12/20/23 12/25/23 Unknown History tamsulosin 0.4 mg capsule 0.4 mg PO DAILY 12/20/23 12/25/23 Unknown History Exam Height,Weight and Vital Signs: Height 4 ft 11 in Weight 46.266 kg Last Vital Signs Temp 98.5 F 12/25/23 14:03 Pulse 69 12/25/23 14:03 Resp 18 12/25/23 14:03 BP 104/50 L 12/25/23 14:03 Pulse Ox 97 12/25/23 14:03 O2 Del Method Room Air 12/25/23 14:03 Airway Mallampati Class: II TM Dist: >3cm Neck ROM: Full Heart: RRR Lungs: CTA Assessment and Plan Final Anesthetic Review Family History of Problems with Anesthesia: No History of Problems with Anesthesia: Yes (ponv) NPO: Yes ASA Class: II and Emergency Final Preanesthetic Review: Meds/Allgs Chart Reviewed, Consent Obtained/Reviewed and Anes Risks/Benef Reviewed Patient Risk: Intermediate Procedure Risk: Intermediate Anesthetic Plan Anesthetic Plan: GA Disposition: Standard PACU
--- NOTE | 2023-12-25 18:15 | W.PM.OPN ---
Operative Note Operative Note Date of Service: 12/25/23 Narrative: PreOperative Diagnosis: Left upper ureteric stone Post Operative Diagnosis: Left renal stone Procedure: - cystoscopy, left retrograde - left dilatation of ureteric orifice under fluoroscopy - left ureteroscopy, stone basketing - left stent placement Surgeon: Dr John Curtis Anesthesia: General Indications for procedure: Left upper ureteric stone. Presented late last week with recurrent pain in emergency visit x2 with failure of conservative therapy Procedure: After informed consent was verified patient was brought to the operating placed in supine position. Anesthesia was administered per protocol. Patient was placed in modified dorsal lithotomy position and prepped and draped in a sterile fashion. Safety pause time-out and side of surgery confirmed. Antibiotics confirmed. 22 [place] cystoscope was inserted per urethra. Bladder was normal in its entirety. Both ureteric orifices were in normal position. The left ureteric orifice was cannulated and a retrograde examination was performed. Filling defect left proximal ureter. A Sensor guidewire was placed up to the level of the renal pelvis under fluoroscopy. The rigid cystoscope was removed and the inner cannula of ureteric access sheath was used under fluoroscopy to dilate the ureteric orifice. The ureteric access sheath was placed and the inner cannula with access wire removed. The digital flexible ureteral scope was placed. Stone encountered left mid pole. Using a 0 tip 1.9 [place] basket the stone was able to be grasped and removed intact At the completion of the stone procedure a Sensor wire was placed back into the renal pelvis. A 6 [place] by 22 cm double-J stent was placed into the renal pelvis and bladder under a combination of fluoroscopy and direct visualization. The symphisis pubis was used as a radiographic marker to release the stent and good coil was seen within the bladder confirming position The bladder was emptied. The patient tolerated the procedure well and was extubated in the operating room, and transferred in stable condition to the recovery area. Pathology: Stone Drains: Stent as above
[2023-12-25 18:24] VITALS: BP 134/61; PULSE 66; RESP 14; TEMP 36.2; O2SAT 98
[2023-12-25 18:29] VITALS: BP 131/53; PULSE 68; RESP 14; O2SAT 100
[2023-12-25] MEDS: Acetaminophen 1,000 MG/100 ML PIGGYBACK 400 MG IV (18:32)
[2023-12-25] MEDS: Phenazopyridine HCL 100 MG TABLET PO (18:33)
[2023-12-25 18:34] VITALS: BP 137/66; PULSE 61; RESP 16; O2SAT 100
[2023-12-25 18:39] VITALS: BP 135/61; PULSE 60; RESP 16; O2SAT 97
[2023-12-25 18:54] VITALS: BP 138/66; PULSE 67; RESP 16; TEMP 36.8; O2SAT 96
[2024-01-17 13:19] LABS: Stone Source LEFT RENAL STONE
== END 2023-12-25 19:04 | disposition home or self-care (01) ==
PROVIDERS: PCP Nurse Practitioner Gerontology; Visit Provider Urology
PROC: (CPT 52352; principal; 2023-12-25 15:30)
DX: N20.0 Calculus of kidney (principal); Z87.442 Personal history of urinary calculi; J45.909 Unspecified asthma, uncomplicated; Z88.0 Allergy status to penicillin; Z88.1 Allergy status to other antibiotic agents; Z98.890 Other specified postprocedural states
CPT/HCPCS: 52352; 52332; 82365; 88300; C1758; C1769; C2617; J0131; J1100; J1956; J2405; J2704; J3010; Q9967

== ENCOUNTER → 2023-12-25 13:45 | Outpatient (BNV) | payer MEDICARE, SELFPAY | PROVIDERS: PCP Nurse Practitioner Gerontology; Visit Provider Urology | DX: N20.0 Calculus of kidney (principal) | CPT/HCPCS: 52332; 52352; 74420 ==

== ENCOUNTER 2024-01-02 13:57 | Outpatient (AMB) | payer MEDICARE, SELFPAY ==
--- NOTE | 2024-01-02 14:04 | A.OFFVIS_ITS ---
Intake Visit Reasons: stent removal Intake Note: Patient presents today for a CYSTOSCOPY/STENT REMOVAL Procedure: Meds: None Allergies to Antibiotic: Pencillin, Levaquin & Azithromycin Blood Thinner: None Urinalysis test clear for Cysto? YES Disposable Uro-G HD Cystoscope Cannula: Lot: [id number] Exp: 08/15/2026 Allergies Penicillins [PCN] Allergy (Severe, Verified 12/20/23 15:08) SWELLING strawberry [STRAWBERRY] Allergy (Severe, Verified 12/20/23 15:08) ANAPHYLAXIS azithromycin [AZITHROMYCIN] Allergy (Intermediate, Verified 12/20/23 15:08) HIVES/GI UPSET levofloxacin [From LEVAQUIN] Adverse Reaction (Intermediate, Verified 12/20/23 15:08) MUSCLE ACHES/TIGHTNESS Medication List - Last Reconciled 01/02/24 by John Curtis MD acetaminophen (Tylenol) 650 mg (2 x 325 mg) PO Q6H PRN atorvastatin 40 mg PO BEDTIME azelastine-fluticasone 137-50 mcg/spray (Dymista) 1 spray intranasal BID ibuprofen 600 mg PO Q6H PRN morphine ER 15 mg PO Q6H PRN naproxen 500 mg PO BID PRN 7 days oxycodone 5 mg PO QID PRN oxycodone-acetaminophen 5-325 mg 1 tab PO Q4H PRN 7 days phenazopyridine (Pyridium) 100 mg PO TID PRN 4 days tamsulosin 0.4 mg PO BEDTIME 14 days tamsulosin 0.4 mg PO DAILY HPI Comments Details: Amanda is a very pleasant female. She is a patient of . She is seen for the following urologic conditions - nephrolithiasis Here for stent removal Left stent removal Three-month follow-up renal ultrasound We will review stone composition at that point in time May benefit from Litholink Nephrolithiasis Recurrent Recent presentation to emergency with left upper ureteric stone and left midpole stone CT - Moderate left hydronephrosis from a 4 mm left proximal ureteral stone. 4 mm left upper pole stone. Small punctate 1 to 2 mm nonobstructing bilateral renal stones. No right hydronephrosis. Bilateral peripelvic cysts Intervention - 01/04 left ureteroscopy Stone composition pending [facility] Medical History Chronic allergic rhinitis Asthma Dyspnea Abnormality of lung on CXR Pneumonitis Pneumonia Cough Pneumonia due to COVID-19 virus Hx of thyroid nodule Allergic rhinitis DDD (degenerative disc disease) Renal calculi Surgical History Status post laser lithotripsy of ureteral calculus History of umbilical hernia repair Hx of tubal ligation Family History Father CVA (cerebral vascular accident) Mother CVA (cerebral vascular accident) Social History Household Members: Spouse Housing: House Do you presently have visiting nurse or other home services: No Alcohol intake: never Patient Tobacco Use Status: Never used Tobacco Advance Directives Date on File: 07/17/20 service: No Review of Systems Const Denies chills and Denies fever(s) Card Reports no additional complaints and Denies syncope Resp Denies cough GI Denies abdominal pain and Denies heartburn Reports as per HPI and Denies change in libido Neuro Denies syncope Psych Denies change in libido Endo Denies change in libido Physical Exam Const General: cooperative, healthy appearing, comfortable and no acute distress Orientation/consciousness: patient oriented x3 HEENT Face and sinus: Yes normal facial exam Mouth: moist mucous membranes Neck Neck: Yes normal visual inspection, Yes full ROM and Yes trachea midline Chest Chest palpation & inspection: normal inspection of the chest Resp Effort & Inspection: normal respiratory effort, able to speak in complete sentences and no respiratory distress GI Inspection: Yes normal to inspection Back/Spine/Pelvis Cervical Spine: normal cervical lordosis Thoracic/Lumbar Spine: thoracic and lumbar spine normal to inspection Skin General skin exam: no rashes or lesions noted Neuro General: patient oriented x3, gait normal, tone normal and moves all extremities Extrem General: Yes normal to inspection and Yes capillary refill normal Office Procedures Cystoscopy Consent Discussed risk and benefit or proposed procedure with the patient. Information consent for procedure given to the patient. Discussed technical aspects, risks, benefits and alternatives in full. Addressed all of the patient's questions and concerns regarding the procedure. The patient demonstrated knowledge and understanding. They wish to proceed with this procedure. Preparation The patient was prepped in the usual manner. A student education specialist was present and in the room. Genitalia was prepped with betadine solution in a sterile manner. Lidoca ine Jelly 2% was placed into the urethra and 16Fr flexible Olympus cystoscope was inserted into the meatus after adequate lubrication. Procedure A well lubricated 16 Turkish cystoscope was placed No abnormality noted of urethra during placement Indwelling stent seen within bladder emerging from left ureteric orifices The stent was grasped with a 3 prong grasper and removed without difficulty The patient tolerated the procedure well [id number] with stent removal DISPOSABLE SCOPE URO-G FLEXIBLE SCOPE Procedure code (CPT) selection complete Office Meds lidocaine HCl 2 % mucosal jelly in applicator Performing Provider: John Curtis MD Performing Location: [facility] Administered by: Neel Pham LPN on 01/02/24 14:11 Dose Route Admin Location Dispensed Lot Number Expiration Date ND Clinical Research Manager 10 mL intra-urethral 10 mL nitrofurantoin monohydrate/macrocrystals 100 mg capsule Performing Provider: John Curtis MD Performing Location: [facility] Administered by: Neel Pham LPN on 01/02/24 14:11 Dose Route Admin Location Dispensed Lot Number Expiration Date ND Clinical Research Manager 100 mg PO 1 cap naproxen 500 mg tablet Performing Provider: John Curtis MD Performing Location: [facility] Administered by: Neel Pham LPN on 01/02/24 14:11 Dose Route Admin Location Dispensed Lot Number Expiration Date ND Clinical Research Manager 500 mg PO 1 tab Results AMB Urinalysis, Automated UA Leukoctes 500 Tiffanie/uL Last Edit by LUCERO Hudson on 01/02/24 14:19 3+ Misha Alexander 01/02/24 14:19 UA Nitrite Negative Last Edit by LUCERO Hudson on 01/02/24 14:19 UA Urobilinogen 0.2 mg/dL Last Edit by LUCERO Hudson on 01/02/24 14:1 9 UA Protein 300 mg/dL Last Edit by Misha Alexander [place] on 01/02/24 14:19 3+ Misha Alexander 01/02/24 14:19 UA pH 5.5 Last Edit by Misha Alexander [place] on 01/02/24 14:19 UA Blood 200 Mik/uL Last Edit by Misha Alexander [place] on 01/02/24 14:19 3+ Misha Alexander 01/02/24 14:19 UA Specific [place] 1.030 Last Edit by LUCERO Hudson on 01/02/24 14: 19 UA Ketone Negative Last Edit by Misha Alexander [facility] on 01/02/24 14:19 UA Bilirubin 0 mg/dL Last Edit by LUCERO Hudson on 01/02/24 14:19 UA Glucose 0 mg/dL Last Edit by Misha Alexander [facility] on 01/02/24 14:19 Results Reviewed Results Reviewed: Laboratory Last Values Urine pH (Auto) 5.5 01/02/24 14:18 Specific [place] (Auto) 1.030 01/02/24 14:18 Urine Protein (Auto) 300 mg/dL 01/02/24 14:18 Glucose (UA)(Auto) 0 mg/dL 01/02/24 14:18 Urine Ketones (Auto) Negative 01/02/24 14:18 Urine Blood (Auto) 200 Mik/uL 01/02/24 14:18 Urine Nitrite (Auto) Negative 01/02/24 14:18 Urine Bilirubin (Auto) 0 mg/dL 01/02/24 14:18 Urine Urobilinogen (Auto) 0.2 mg/dL 01/02/24 14:18 Leukocyte Esterase (Auto) 500 Tiffanie/uL 01/02/24 14:18 Assessment & Plan Assessment & Plan (1) Renal calculi: Code(s): N20.0 - Calculus of kidney Category: Medical Plan Three-month follow-up renal ultrasound office Orders: Orders AMB Cystoscopy Today N20.0 - Calculus of kidney AMB Urinalysis Automated Today Z13.9 - Encounter for screening, unspecified US renal BI 3 Months N20.0 - Calculus of kidney Patient Instructions: Imaging studies, laboratory and physical exam results were discussed and reviewed in detail. No major barriers to patient understanding were identified. An opportunity to ask questions regarding the treatment plan was provided. All questions were answered. The patient expressed understanding and agreement with the above treatment plan. The patient is aware they should contact our office by phone for worsening of their current condition or the appearance of new urologic symptoms. Compliance is encouraged with any medications and followup testing that is ordered. It is a privilege to participate in the urologic care of your patient. If you have any questions or concerns regarding treatment for the above conditions, or other urologic issues, please do not hesitate to contact me. The office telephone contact is [phone]. This note is constructed using voice recognition software. While every effort has been made to ensure accuracy manager talent errors may have been included. Yours sincerely, Dr John Curtis MD, [facility] - Urology Providers of Expert, Compassionate Care for the Genitourinary System Coding Level of Care Code Est Pt Level 3 (79226) Diagnoses Renal calculi N20.0 CPT Codes Cystoscopy - CPT: 17511-[id number] with stent removal ([id number])
== END 2024-01-02 14:47 | disposition home or self-care (01) ==
PROVIDERS: PCP Nurse Practitioner Gerontology; Visit Provider Urology
DX: N20.0 Calculus of kidney (principal); Z96.0 Presence of urogenital implants; Z13.9 Encounter for screening, unspecified
CPT/HCPCS: 52310

== ENCOUNTER → 2024-01-02 13:57 | Outpatient (BNVA) | payer MEDICARE, SELFPAY | PROVIDERS: PCP Nurse Practitioner Gerontology; Visit Provider Urology | DX: Z48.816 Encounter for surgical aftercare following surgery on the genitourinary system (principal); J45.40 Moderate persistent asthma, uncomplicated; J30.9 Allergic rhinitis, unspecified; R06.00 Dyspnea, unspecified | CPT/HCPCS: 52310; 81003; 99212 ==

== ENCOUNTER 2024-01-02 14:55 | Outpatient (AMB) | payer MEDICARE, SELFPAY ==
[2024-01-02 14:59] VITALS: PULSE 88; O2SAT 94; BMI 20.6
--- NOTE | 2024-01-02 14:59 | A.OFFVIS_ITS ---
Vital Signs 01/02/24 14:59 Height 4 ft 11 in Weight 102 lb BMI 20.6 Pulse 88 Pulse Source Pulse Oximeter Pulse Oximetry (%) 94 Oxygen Delivery Method Room Air Intake Visit Reasons: cough: 6 month f/u Digital Cartographic Technician Required: No Allergies Penicillins [PCN] Allergy (Severe, Verified 01/02/24 15:00) SWELLING strawberry [STRAWBERRY] Allergy (Severe, Verified 01/02/24 15:00) ANAPHYLAXIS azithromycin [AZITHROMYCIN] Allergy (Intermediate, Verified 01/02/24 15:00) HIVES/GI UPSET levofloxacin [From LEVAQUIN] Adverse Reaction (Intermediate, Verified 01/02/24 15:00) MUSCLE ACHES/TIGHTNESS HPI Comments Details: The patient is a 63-year-old woman who has a unremarkable past medical history until back in the end of July when she started having symptoms consistent with COVID-19. She was tested positive for COVID-19 on August 04 and did have issues with cough. While she was sick with the COVID she did have worsening shortness of breath. She did have a nebulizer available and she did treat herself with albuterol. Her symptoms did improve some degree. She initially she was very short of breath even going up a flight of stairs. Moderate severity. Also had a significant cough specially when she try taking a deep breath which she was started coughing after doing so. Sometimes the coughing spells could result in some lightheadedness. The patient did undergo a chest x-ray at [facility] which I personally reviewed demonstrating bilateral hazy opacities left more than right primarily at the bases consistent with the COVID 19 pneumonia. The patient has not been coughing any secretions. She denies any fevers or chills. Her pulse oximetry has been good between 97- 98%. On examination she still has some crackles. Therefore will treat her with a low-dose prednisone and would be reasonable to give her some doxycycline in the meantime. Will follow up with her chest x-ray and pulmonary function studies. 01/20/2021 the patient is here for pulmonary follow-up visit. She developed COVID back in July and she still complaining of some underlying respiratory complaints and also having significant muscle spasms specially for back. Denies any pleuritic chest discomfort. She still noticing some dyspnea on exertion. [id number]-[id number]-[id number] severity. Depending on the activity. She went swimming once and she felt very short of breath while she was swimming she was very concerned because she is an avid swimmer. The patient did not have her pulmonary function studies. We did review her CXR from 09/2020 with RLL opacity ?effusion. 05/20/2021 the patient is here for pulmonary follow-up visit. Overall she is feeling better. She is going back to the gym and exercising. She has not noticed any significant limitations from a respiratory status. The patient did not have her follow-up chest x-ray. However, she did have pulmonary function studies that were personally by me. Appears that she does have low normal forced vital capacity and normal total lung capacity. She has a moderate diffusion impairment. Therefore she does have some residual changes that she developed after COVID. We did again review her last chest x-ray demonstrating some slight opacity to the right to based suggesting some degree of thickening of the pleura in addition to pleural effusion. I will have the patient get an x-ray in the next few months. Overall she is clinically doing better. However, if she notices any worsening symptoms she is to call for an earlier visit and have the x-ray at a earlier time. 04/18/2023 the patient is here for pulmonary follow-up visit. the patient just got back from vacation. She became sick. Started developing bronchitis symptoms chest congestion chest tightness. Moderate severity. She was evaluated by primary care doctor and also urgent care. No x-rays were done. The patient was started to have a viral syndrome. She did test negative for COVID-19. She was not given any medication. She did get vrru-swb-[id number] cough medication. Ultimately ended up getting some codeine cough syrup which is helpful. Still does not feel right. Still having chest tightness. On examination she does have wheezing and some rhonchi. the patient is also congested bringing up some light colored phlegm. We did review her last chest x-ray which was slightly abnormal with a small pleural effusion and atelectasis. In addition to that she did have pulmonary function studies last year demonstrating significant small airways disease in a normal total lung capacity and a moderate diffusion impairment. This is all the results of significant COVID. At this point the patient will be started on a course of antibiotics to treat the bronchitis along with a small dose of prednisone. In addition to that she will have her rescue medication available. Will plan to repeat her chest x- ray and PFTs and follow-up. The patient also has been issues with musty smells and humidity. Will go ahead and requested additional blood work to assess her allergies in immune status. 06/19/2023 the patient is here for pulmonary follow-up visit. Since we last spoke the patient has been feeling better regarding her bronchitis. She did taking medications. Although now she is having increasing cough and nasal congestion. Has a significant postnasal drip. Isn't very bothersome. She is not using any nasal sprays right now. The patient did go to her eye doctor and she was told that she had elevated pressures. But she is not clear about the diagnosis. Sounds of glaucoma. Therefore will avoid anticholinergic therapy which potentially will help her postnasal drip. Will start her on Dymista and also would benefit from Bentson as to minimize cough. We did review her allergy testing. She does have significant allergies to dust mites with an elevated IgE. Her IgA levels were elevated although during that time she did have bronchitis and therefore likely related to the ongoing infection. At some point she should have blood work to follow-up the IgE elevation. The patient also may benefit from a maintenance inhaler. At this time though she is not having significant wheezing so therefore will try the treatment for the upper respiratory cough syndrome. If she is no better we can always put her on a maintenance inhaler. The patient ultimately if she continues to be symptomatic were qualify for biologic therapy such as Xolair. 01/02/2024 the patient is here for a pulmonary follow-up visit. She just recently had a ureter stent removed for kidney stones. She has been dealing with that for some time now. Otherwise her asthma seems to be in good control with current respiratory medications. However, her allergies have been more significant. She has had significant runny of the eyes and itchiness of the skin and nasal congestion. She is going to start her nasal sprays. She needs additional allergy medicine at this time. We did review her allergy testing. It was pretty limited. It looks like her IgE was elevated from underlying allergies this is back in the fall. In addition to that she was only allergic to dust mites and also [place] trees. I explained to her that this is a limited panel. She is probably allergic to multiple things based on her elevated IgE of 215. But, the common things are not demonstrating any significant reaction to. Will go ahead and recheck her IgE level and eosinophil level whenever she is able to do so. At this point though will continue with current respiratory regimen will add additional allergy therapies. [facility] Medical History Chronic allergic rhinitis Asthma Dyspnea Abnormality of lung on CXR Pneumonitis Pneumonia Cough Pneumonia due to COVID-19 virus Hx of thyroid nodule Allergic rhinitis DDD (degenerative disc disease) Renal calculi Surgical History Status post laser lithotripsy of ureteral calculus History of umbilical hernia repair Hx of tubal ligation Family History Father CVA (cerebral vascular accident) Mother CVA (cerebral vascular accident) Social History Household Members: Spouse Housing: House Do you presently have visiting nurse or other home services: No Alcohol intake: never Patient Tobacco Use Status: Never used Tobacco Advance Directives Date on File: 07/17/20 service: No Review of Systems Const Denies night sweats Eyes Reports irritation and Reports itchy eyes ENT Denies change in voice, Denies lip swelling, Denies mouth pain, Reports nasal congestion, Reports nasal discharge, Reports post nasal drip and Denies tongue swelling Card Denies chest pain and Denies dyspnea on exertion Resp Denies chest congestion, Reports cough, Denies dyspnea on exertion and Denies wheezing GI Denies abdominal pain Musc Denies no additional complaints and Reports back pain Neuro Denies Neuro-related abnormal movements Psych Denies no additional complaints Jordin/Lymph Denies easy bleeding and Denies lymphadenopathy Aller/Immun Reports itchy eyes, Denies lip swelling, Denies tongue swelling and Denies wheezing Physical Exam Vital Signs: Last Vital Signs Pulse 88 01/02/24 14:59 Pulse Ox 94 01/02/24 14:59 Oxygen Delivery Method Room Air 01/02/24 14:59 BMI result Body Mass Index 20.6 Const General: alert HEENT General nose exam: Abnormal mucous membranes and turbinates present boggy Neck Neck: Yes normal visual inspection, Yes full ROM and Yes no lymphadenopathy Chest Chest palpation & inspection: normal inspection of the chest Resp Effort & Inspection: normal respiratory effort Auscultation: clear to auscultation bilaterally, no crackles, no rhonchi and no wheezes Cardio Rate: regular rate Rhythm: regular rhythm Heart sounds: S1 normal heart sound present and S2 normal heart sound present GI Palpation (GI): Soft to palpation and nontender Auscultation: normal bowel sounds Skin General skin exam: rashes and/or lesions noted Results AMB Urinalysis, Automated UA Leukoctes 500 Tiffanie/uL Last Edit by Misha Alexander Lynn on 01/02/24 14:19 3+ Misha Alexander 01/02/24 14:19 UA Nitrite Negative Last Edit by Misha Alexander Lynn on 01/02/24 14:19 UA Urobilinogen 0.2 mg/dL Last Edit by Misha Alexander [facility] on 01/02/24 14:1 9 UA Protein 300 mg/dL Last Edit by Misha Alexadner Lynn on 01/02/24 14:19 3+ Misha Alexander 01/02/24 14:19 UA pH 5.5 Last Edit by Misha Alexander [facility] on 01/02/24 14:19 UA Blood 200 Mik/uL Last Edit by Misha Alexander [facility] on 01/02/24 14:19 3+ Misha Alexander 01/02/24 14:19 UA Specific [place] 1.030 Last Edit by Misha Alexander Lynn on 01/02/24 14: 19 UA Ketone Negative Last Edit by Misha Alexander [facility] on 01/02/24 14:19 UA Bilirubin 0 mg/dL Last Edit by Misha Alexander [facility] on 01/02/24 14:19 UA Glucose 0 mg/dL Last Edit by Misha Alexander [facility] on 01/02/24 14:19 Assessment & Plan Assessment & Plan (1) Chronic allergic rhinitis: Code(s): J30.9 - Allergic rhinitis, unspecified Category: Medical (2) Asthma: Code(s): J45.909 - Unspecified asthma, uncomplicated Category: Medical Qualifiers: Asthma complication type: uncomplicated Asthma persistence: persistent Asthma severity: moderate Qualified Code(s): J45.40 - Moderate persistent asthma, uncomplicated (3) Dyspnea: Code(s): R06.00 - Dyspnea, unspecified Category: Medical Qualifiers: Dyspnea type: dyspnea on exertion Qualified Code(s): R06.00 - Dyspnea, unspecified Plan: improvong Plan Benzonates as needed restart Dymista allergy eye drops (OTC) Patti 180mg daily ERNESTINE as needed consider maintenance respiratory therapy Bloodwork Allergies to dust mites: hypoallergenic bed covers, minimize carpets and should use vacuum with HEPA filter. F/U 6-8 months Orders: Orders Immunoglobulin E Today J30.9 - Allergic rhinitis, unspecified, J45.40 - Moderate persistent asthma, uncomplicated Complete Blood Count Auto Diff Today J30.9 - Allergic rhinitis, unspecified, J45.40 - Moderate persistent asthma, uncomplicated Medications: New fexofenadine (Patti Hives) 180 mg PO DAILY 30 days 30 tabs 0RF Changed From azelastine-fluticasone 137-50 mcg/spray (Dymista) administer into each nostril 1 spray intranasal BID 23 grams 3RF To azelastine-fluticasone 137-50 mcg/spray (Dymista) administer into each nostril 1 spray intranasal BID 30 days 23 grams 11RF Coding Level of Care Code Est Pt Level 4 (62184) Diagnoses Chronic allergic rhinitis J30.9 Moderate persistent asthma without complication J45.40 Asthma complication type: uncomplicated Asthma persistence: persistent Asthma severity: moderate Dyspnea on exertion R06.00 Dyspnea type: dyspnea on exertion Time Spent (min) 16
== END 2024-01-02 15:16 | disposition home or self-care (01) ==
PROVIDERS: PCP Nurse Practitioner Gerontology; Visit Provider Hospitalist
DX: J30.9 Allergic rhinitis, unspecified (principal); J45.40 Moderate persistent asthma, uncomplicated; R06.00 Dyspnea, unspecified
CPT/HCPCS: 99214

== ENCOUNTER 2024-03-18 13:02 | Outpatient (REF) | payer MEDICARE, SELFPAY ==
--- NOTE | ~2024-03-18 | US_ITS ---
EXAMINATION: US RETROPERITONEAL LIMITED (RENAL ONLY) CLINICAL INFORMATION: Calculus of kidney. COMPARISON: CT abdomen and pelvis 12/17/2023. Renal ultrasound 03/26/2020. Ultrasound abdomen complete 01/30/2020. X-ray abdomen 08/28/2019 and 08/16/2017. TECHNIQUE: Real-time imaging of the kidneys. Limited visualization due to bowel gas. FINDINGS: RIGHT KIDNEY: 9.7 x 3.4 x 5.0 cm (SAG x AP x TRV). A 0.5 cm upper pole calculus. No hydronephrosis. Renal cortical thickness is normal. 1.4 cm upper pole and 1.2 cm lower pole cyst with benign features. There is no indication for follow-up imaging. Limited visualization. LEFT KIDNEY: 9.4 x 4.6 x 4.1 cm (SAG x AP x TRV). 0.8 cm upper pole calculus. 1.1 cm midpole cyst with benign features. There is no indication for additional imaging. 0.9 cm lower pole cyst with mural calcification. Limited visualization. US/US renal BI IMPRESSION: Bilateral nephrolithiasis. No hydronephrosis.
== END 2024-03-18 13:03 | disposition home or self-care (01) ==
LOC: HO.US 13:02
PROVIDERS: PCP Nurse Practitioner Gerontology; Visit Provider Urology
DX: N20.0 Calculus of kidney (principal)
CPT/HCPCS: 76775

== ENCOUNTER 2024-03-27 14:08 | Outpatient (AMB) | payer MEDICARE, SELFPAY ==
--- NOTE | 2024-03-27 14:13 | MHC.OFFVIS ---
Intake Visit Reasons: 3M Follow Up-Ultrasound(set) Intake Note: Patient is Present for Follow Up Ultrasound Urology Medication: Patient no longer taking Tamsulosin Antibiotic Allergies: Penicillins, Azithromycin, Levofloxacin Blood Thinners:None Net Programmer Analyst Required: No Accompanied by: Self / Same As Patient Allergies Penicillins [PCN] Allergy (Severe, Verified 03/27/24 14:17) SWELLING strawberry [STRAWBERRY] Allergy (Severe, Verified 03/27/24 14:17) ANAPHYLAXIS azithromycin [AZITHROMYCIN] Allergy (Intermediate, Verified 03/27/24 14:17) HIVES/GI UPSET levofloxacin [From LEVAQUIN] Adverse Reaction (Intermediate, Verified 03/27/24 14:17) MUSCLE ACHES/TIGHTNESS Medication List - Last Reconciled 03/27/24 by John Curtis MD acetaminophen (Tylenol) 650 mg (2 x 325 mg) PO Q6H PRN atorvastatin 40 mg PO BEDTIME azelastine-fluticasone 137-50 mcg/spray (Dymista) 1 spray intranasal BID 30 days fexofenadine (Patti Hives) 180 mg PO DAILY 30 days ibuprofen 600 mg PO Q6H PRN morphine ER 15 mg PO Q6H PRN naproxen 500 mg PO BID PRN 7 days ondansetron HCl 4 mg PO Q8H PRN oxycodone 5 mg PO QID PRN oxycodone-acetaminophen 5-325 mg 1 tab PO Q4H PRN 7 days phenazopyridine (Pyridium) 100 mg PO TID PRN 4 days sulfamethoxazole-trimethoprim 800-160 mg (Bactrim DS) 1 tab PO BID 5 days tamsulosin 0.4 mg PO BEDTIME 14 days HPI Comments Details: Amanda is a very pleasant female. She is a patient of . She is seen for the following urologic conditions - nephrolithiasis Three-month follow-up imaging Small stones bilateral Has strong family history with daughter and brother who also make stones She has frequently made him in the past Will organized Uro risk and baseline stone labs Two month follow-up assessment with nurse practitioner Nephrolithiasis Recurrent Recent presentation to emergency with left upper ureteric stone and left midpole stone CT - Moderate left hydronephrosis from a 4 mm left proximal ureteral stone. 4 mm left upper pole stone. Small punctate 1 to 2 mm nonobstructing bilateral renal stones. No right hydronephrosis. Bilateral peripelvic cysts - 04/06 renal ultrasound question 4 mm stone bilateral Intervention - 01/04 left ureteroscopy Stone composition mixed calcium oxalate 80% monohydrate Labs - 01/04 Ca 9.4 PFSH Medical History Chronic allergic rhinitis Asthma Dyspnea Abnormality of lung on CXR Pneumonitis Pneumonia Cough Pneumonia due to COVID-19 virus Hx of thyroid nodule Allergic rhinitis DDD (degenerative disc disease) Renal calculi Surgical History Status post laser lithotripsy of ureteral calculus History of umbilical hernia repair Hx of tubal ligation Family History Father CVA (cerebral vascular accident) Mother CVA (cerebral vascular accident) Social History Household Members: Spouse Housing: House Do you presently have visiting nurse or other home services: No Alcohol intake: never Patient Tobacco Use Status: Never used Tobacco Advance Directives Date on File: 07/17/20 service: No Review of Systems Const Denies chills and Denies fever(s) Card Reports no additional complaints and Denies syncope Resp Denies cough GI Denies abdominal pain and Denies heartburn Reports as per HPI and Denies change in libido Neuro Denies syncope Psych Denies change in libido Endo Denies change in libido Physical Exam Const General: cooperative, healthy appearing, comfortable and no acute distress Orientation/consciousness: patient oriented x3 HEENT Face and sinus: Yes normal facial exam Mouth: moist mucous membranes Neck Neck: Yes normal visual inspection, Yes full ROM and Yes trachea midline Chest Chest palpation & inspection: normal inspection of the chest Resp Effort & Inspection: normal respiratory effort, able to speak in complete sentences and no respiratory distress GI Inspection: Yes normal to inspection Back/Spine/Pelvis Cervical Spine: normal cervical lordosis Thoracic/Lumbar Spine: thoracic and lumbar spine normal to inspection Skin General skin exam: no rashes or lesions noted Neuro General: patient oriented x3, gait normal, tone normal and moves all extremities Extrem General: Yes normal to inspection and Yes capillary refill normal Assessment & Plan Assessment & Plan (1) Renal calculi: Code(s): N20.0 - Calculus of kidney Category: Medical Plan Stone assessment Baseline labs and Uro risk Orders: Orders Magnesium Today N20.0 - Calculus of kidney Phosphorus Today N20.0 - Calculus of kidney Vitamin D 25-OH Total Today N20.0 - Calculus of kidney Basic Metabolic Panel Today N20.0 - Calculus of kidney URORISK Today N20.0 - Calculus of kidney Uric Acid Today N20.0 - Calculus of kidney Parathyroid Hormone Intact Today N20.0 - Calculus of kidney Patient Instructions: Imaging studies, laboratory and physical exam results were discussed and reviewed in detail. No major barriers to patient understanding were identified. An opportunity to ask questions regarding the treatment plan was provided. All questions were answered. The patient expressed understanding and agreement with the above treatment plan. The patient is aware they should contact our office by phone for worsening of their current condition or the appearance of new urologic symptoms. Compliance is encouraged with any medications and followup testing that is ordered. It is a privilege to participate in the urologic care of your patient. If you have any questions or concerns regarding treatment for the above conditions, or other urologic issues, please do not hesitate to contact me. The office telephone contact is [phone]. This note is constructed using voice recognition software. While every effort has been made to ensure accuracy director of customer acquisition errors may have been included. Yours sincerely, Dr John Curtis MD, [facility] - Urology Providers of Expert, Compassionate Care for the Genitourinary System Coding Level of Care Code Est Pt Level 4 (91283) Diagnoses Renal calculi N20.0
== END 2024-03-27 15:14 | disposition home or self-care (01) ==
PROVIDERS: PCP Nurse Practitioner Gerontology; Visit Provider Urology
DX: N20.0 Calculus of kidney (principal)
CPT/HCPCS: 99214

== ENCOUNTER → 2024-03-27 14:08 | Outpatient (BNVA) | payer MEDICARE, SELFPAY | PROVIDERS: PCP Nurse Practitioner Gerontology; Visit Provider Urology | DX: N20.0 Calculus of kidney (principal) | CPT/HCPCS: 99212 ==

== ENCOUNTER 2024-04-02 12:41 | Outpatient (REF) | payer MEDICARE, SELFPAY ==
--- NOTE | ~2024-04-02 | MM_ITS ---
EXAMINATION: BONE DENSITOMETRY CLINICAL INDICATION: Age-related osteoporosis without current pathological fracture. COMPARISON: This is the patient's baseline examination. TECHNIQUE: Using a [employer] DXA System (software version: 13.1) manufactured by [employer], dual-energy x-ray absorptiometry was performed of the lumbar spine and left hip. The images are of good technical quality. Summary results are attached. FINDINGS: LEFT FEMUR, NECK: BMD 0.800 g/cm2, Z-score 0.2, T-score -1.7, osteopenia. LEFT FEMUR, TOTAL: BMD 0.739 g/cm2, Z-score -0.5, T-score -2.1, osteopenia. AP SPINE L1-L4: BMD 1.022 g/cm2, Z-score 0.9, T-score -1.3, osteopenia. IDENTIFIED RISK FACTORS: Menopause. HISTORY OF FRACTURE: None listed. MEDICATIONS: Vitamin D. MM/XR DEXA axial skeleton IMPRESSION: 1. DIAGNOSIS: Osteopenia based on the lowest T-score value of -2.1 in the total applying World Health Organization criteria. 2. 10-YEAR FRACTURE RISK PREDICTION, FRAX: Major osteoporotic fracture (clinical spine, forearm, hip or shoulder) 4.8%. Hip fracture 0.6%. 3. Treatment Recommendations: NOF guidelines recommend consideration for treatment in postmenopausal women and men age 50 and older presenting with the following: -A hip or vertebral (clinical or morphometric) fracture. -T-score less than or equal to -2.5 at the femoral neck or spine after appropriate evaluation to exclude secondary causes. -Low bone mass at the hip or spine and a 10-year fracture probability by FRAX of greater than or equal to 3% for hip fracture or greater than or equal to 20% for major osteoporotic fracture based on the [place] adapted WHO algorithm. 4. Other Recommendations: All treatment decisions require clinical judgment and consideration of individual patient factors, including patient preferences, comorbidities, previous drug use, risk factors not captured in the FRAX model (e.g. frailty, falls, vitamin D deficiency, increased bone turnover, interval significant decline in bone density) and possible under or overestimation of fracture risk by FRAX. Additional medical evaluation for secondary cause of low bone mineral density may be appropriate. FUTURE SCAN RECOMMENDATION: People with diagnosed cases of osteoporosis or at high risk for fracture should have regular bone mineral density tests. For patients eligible for Medicare, routine testing is allowed once every 2 years. The testing frequency can be increased to one year for patients who have rapidly progressing disease, those who are receiving or discontinuing medical therapy to restore bone mass, or have additional risk factors. Electronically signed by: Lb Johnson MD 04/10/2024 08:53 AM EDT
== END 2024-04-02 12:42 | disposition home or self-care (01) ==
LOC: HO.MAMMO 12:41
PROVIDERS: PCP Nurse Practitioner Gerontology; Visit Provider Nurse Practitioner Gerontology
DX: M81.0 Age-related osteoporosis without current pathological fracture (principal); E78.00 Pure hypercholesterolemia, unspecified
CPT/HCPCS: 77080

== ENCOUNTER 2024-07-02 10:13 | Outpatient (AMB) | payer MEDICARE, SELFPAY ==
--- NOTE | 2024-07-02 10:15 | MHC.OFFVIS ---
Vital Signs 07/02/24 10:17 Height 4 ft 11 in Weight 104 lb 11.513 oz BMI 21.1 BP 132/74 Blood Pressure Location Lt brachial Position Sitting Pulse 67 Pulse Source Pulse Oximeter Pulse Oximetry (%) 99 Oxygen Delivery Method Room Air Intake Visit Reasons: asthma Photocomposing Keyboard Operator Required: No Cyber Workforce Developer And Manager: Cyber Workforce Developer And Manager offered & declined Accompanied by: Self / Same As Patient Allergies Penicillins [PCN] Allergy (Severe, Verified 07/02/24 10:21) SWELLING strawberry [STRAWBERRY] Allergy (Severe, Verified 07/02/24 10:21) ANAPHYLAXIS azithromycin [AZITHROMYCIN] Allergy (Intermediate, Verified 07/02/24 10:21) HIVES/GI UPSET levofloxacin [From LEVAQUIN] Adverse Reaction (Intermediate, Verified 07/02/24 10:21) MUSCLE ACHES/TIGHTNESS Medication List - Last Reconciled 07/02/24 by Luisa Helms LPN acetaminophen (Tylenol) 650 mg (2 x 325 mg) PO Q6H PRN atorvastatin 40 mg PO BEDTIME azelastine-fluticasone 137-50 mcg/spray (Dymista) 1 spray intranasal BID 30 days fexofenadine (Patti Hives) 180 mg PO DAILY 30 days ibuprofen 600 mg PO Q6H PRN morphine ER 15 mg PO Q6H PRN naproxen 500 mg PO BID PRN 7 days ondansetron HCl 4 mg PO Q8H PRN oxycodone 5 mg PO QID PRN oxycodone-acetaminophen 5-325 mg 1 tab PO Q4H PRN 7 days phenazopyridine (Pyridium) 100 mg PO TID PRN 4 days sulfamethoxazole-trimethoprim 800-160 mg (Bactrim DS) 1 tab PO BID 5 days tamsulosin 0.4 mg PO BEDTIME 14 days HPI Comments Details: The patient is a 63-year-old woman who has a unremarkable past medical history until back in the end of July when she started having symptoms consistent with COVID-19. She was tested positive for COVID-19 on August 04 and did have issues with cough. While she was sick with the COVID she did have worsening shortness of breath. She did have a nebulizer available and she did treat herself with albuterol. Her symptoms did improve some degree. She initially she was very short of breath even going up a flight of stairs. Moderate severity. Also had a significant cough specially when she try taking a deep breath which she was started coughing after doing so. Sometimes the coughing spells could result in some lightheadedness. The patient did undergo a chest x-ray at [facility] which I personally reviewed demonstrating bilateral hazy opacities left more than right primarily at the bases consistent with the COVID 19 pneumonia. The patient has not been coughing any secretions. She denies any fevers or chills. Her pulse oximetry has been good between 97-98%. On examination she still has some crackles. Therefore will treat her with a low-dose prednisone and would be reasonable to give her some doxycycline in the meantime. Will follow up with her chest x-ray and pulmonary function studies. 01/20/2021 the patient is here for pulmonary follow-up visit. She developed COVID back in July and she still complaining of some underlying respiratory complaints and also having significant muscle spasms specially for back. Denies any pleuritic chest discomfort. She still noticing some dyspnea on exertion. Hypb-pb-dzoffzux severity. Depending on the activity. She went swimming once and she felt very short of breath while she was swimming she was very concerned because she is an avid swimmer. The patient did not have her pulmonary function studies. We did review her CXR from 09/2020 with RLL opacity ?effusion. 05/20/2021 the patient is here for pulmonary follow-up visit. Overall she is feeling better. She is going back to the gym and exercising. She has not noticed any significant limitations from a respiratory status. The patient did not have her follow-up chest x-ray. However, she did have pulmonary function studies that were personally by me. Appears that she does have low normal forced vital capacity and normal total lung capacity. She has a moderate diffusion impairment. Therefore she does have some residual changes that she developed after COVID. We did again review her last chest x-ray demonstrating some slight opacity to the right to based suggesting some degree of thickening of the pleura in addition to pleural effusion. I will have the patient get an x-ray in the next few months. Overall she is clinically doing better. However, if she notices any worsening symptoms she is to call for an earlier visit and have the x-ray at a earlier time. 04/18/2023 the patient is here for pulmonary follow-up visit. the patient just got back from vacation. She became sick. Started developing bronchitis symptoms chest congestion chest tightness. Moderate severity. She was evaluated by primary care doctor and also urgent care. No x-rays were done. The patient was started to have a viral syndrome. She did test negative for COVID-19. She was not given any medication. She did get uwbo-qas-dpoebpa cough medication. Ultimately ended up getting some codeine cough syrup which is helpful. Still does not feel right. Still having chest tightness. On examination she does have wheezing and some rhonchi. the patient is also congested bringing up some light colored phlegm. We did review her last chest x-ray which was slightly abnormal with a small pleural effusion and atelectasis. In addition to that she did have pulmonary function studies last year demonstrating significant small airways disease in a normal total lung capacity and a moderate diffusion impairment. This is all the results of significant COVID. At this point the patient will be started on a course of antibiotics to treat the bronchitis along with a small dose of prednisone. In addition to that she will have her rescue medication available. Will plan to repeat her chest x-ray and PFTs and follow-up. The patient also has been issues with musty smells and humidity. Will go ahead and requested additional blood work to assess her allergies in immune status. 06/19/2023 the patient is here for pulmonary follow-up visit. Since we last spoke the patient has been feeling better regarding her bronchitis. She did taking medications. Although now she is having increasing cough and nasal congestion. Has a significant postnasal drip. Isn't very bothersome. She is not using any nasal sprays right now. The patient did go to her eye doctor and she was told that she had elevated pressures. But she is not clear about the diagnosis. Sounds of glaucoma. Therefore will avoid anticholinergic therapy which potentially will help her postnasal drip. Will start her on Dymista and also would benefit from Bentson as to minimize cough. We did review her allergy testing. She does have significant allergies to dust mites with an elevated IgE. Her IgA levels were elevated although during that time she did have bronchitis and therefore likely related to the ongoing infection. At some point she should have blood work to follow-up the IgE elevation. The patient also may benefit from a maintenance inhaler. At this time though she is not having significant wheezing so therefore will try the treatment for the upper respiratory cough syndrome. If she is no better we can always put her on a maintenance inhaler. The patient ultimately if she continues to be symptomatic were qualify for biologic therapy such as Xolair. 01/02/2024 the patient is here for a pulmonary follow-up visit. She just recently had a ureter stent removed for kidney stones. She has been dealing with that for some time now. Otherwise her asthma seems to be in good control with current respiratory medications. However, her allergies have been more significant. She has had significant runny of the eyes and itchiness of the skin and nasal congestion. She is going to start her nasal sprays. She needs additional allergy medicine at this time. We did review her allergy testing. It was pretty limited. It looks like her IgE was elevated from underlying allergies this is back in the fall. In addition to that she was only allergic to dust mites and also Brooke trees. I explained to her that this is a limited panel. She is probably allergic to multiple things based on her elevated IgE of 215. But, the common things are not demonstrating any significant reaction to. Will go ahead and recheck her IgE level and eosinophil level whenever she is able to do so. At this point though will continue with current respiratory regimen will add additional allergy therapies. 07/02/2024 the patient is here for a pulmonary sick visit. She is having worsening nasal congestion and also cough. She was prescribed nasal sprays but she is concerned about use it regularly. She uses them as needed and very seldomly. She has had an episode where she had significant postnasal drip to the point that she was choking. The patient went to an urgent care to be evaluated for the sinus congestion she was given doxycycline for sinusitis. Does not feel like she has any sinus pressure at this time. The patient also has had a cough. It has been aggravating her. Significant chest tightness. Moderate severity. The patient does have underlying allergies. They seem to be worsened in the fall. However she needs to make sure to take her medications. Explained to her the Dymista she needs to use on a regular basis. I will send her ipratropium nasal spray that she can use as needed to try to help her with her significant nasal discharge. In addition to that she has not wheezing on exam and she can try some Symbicort. The Symbicort she can use once or twice a day. Will have her get an x-ray of the sinuses and also the chest. Will follow-up in August. If the patient is no better she will call for an earlier assessment. [facility] Medical History Chronic allergic rhinitis Asthma Dyspnea Abnormality of lung on CXR Pneumonitis Pneumonia Cough Pneumonia due to COVID-19 virus Hx of thyroid nodule Allergic rhinitis DDD (degenerative disc disease) Renal calculi Surgical History Status post laser lithotripsy of ureteral calculus History of umbilical hernia repair Hx of tubal ligation Family History Father CVA (cerebral vascular accident) Mother CVA (cerebral vascular accident) Social History Household Members: Spouse Housing: House Do you presently have visiting nurse or other home services: No Alcohol intake: never Patient Tobacco Use Status: Never used Tobacco Advance Directives Date on File: 07/17/20 service: No Review of Systems Const Denies night sweats Eyes Reports irritation and Reports itchy eyes ENT Denies change in voice, Denies lip swelling, Denies mouth pain, Reports nasal congestion, Reports nasal discharge, Reports post nasal drip and Denies tongue swelling Card Denies chest pain and Denies dyspnea on exertion Resp Denies chest congestion, Reports cough, Denies dyspnea on exertion and Reports wheezing GI Denies abdominal pain Musc Denies no additional complaints and Reports back pain Neuro Denies Neuro-related abnormal movements Psych Denies no additional complaints Jordin/Lymph Denies easy bleeding and Denies lymphadenopathy Aller/Immun Reports itchy eyes, Denies lip swelling, Denies tongue swelling and Reports wheezing Physical Exam Vital Signs: Last Vital Signs Pulse 67 07/02/24 10:17 BP 132/74 07/02/24 10:17 Pulse Ox 99 07/02/24 10:17 Oxygen Delivery Method Room Air 07/02/24 10:17 BMI result Body Mass Index 21.1 Const General: alert HEENT General nose exam: Abnormal mucous membranes and turbinates present boggy Neck Neck: Yes normal visual inspection, Yes full ROM and Yes no lymphadenopathy Chest Chest palpation & inspection: normal inspection of the chest Resp Effort & Inspection: normal respiratory effort Auscultation: clear to auscultation bilaterally, no crackles, no rhonchi and no wheezes Cardio Rate: regular rate Rhythm: regular rhythm Heart sounds: S1 normal heart sound present and S2 normal heart sound present GI Palpation (GI): Soft to palpation and nontender Auscultation: normal bowel sounds Skin General skin exam: rashes and/or lesions noted Assessment & Plan Assessment & Plan (1) Chronic allergic rhinitis: Code(s): J30.9 - Allergic rhinitis, unspecified Category: Medical (2) Asthma: Code(s): J45.909 - Unspecified asthma, uncomplicated Category: Medical Qualifiers: Asthma complication type: uncomplicated Asthma persistence: persistent Asthma severity: moderate Qualified Code(s): J45.40 - Moderate persistent asthma, uncomplicated (3) Dyspnea: Code(s): R06.00 - Dyspnea, unspecified Category: Medical Qualifiers: Dyspnea type: dyspnea on exertion Qualified Code(s): R06.00 - Dyspnea, unspecified Plan: improvong Plan Benzonates as needed restart Dymista start ipratropium nasal spray as needed Patti 180mg daily considered pseudophed ERNESTINE as needed start Symbicort Allergies to dust mites: hypoallergenic bed covers, minimize carpets and should use vacuum with HEPA filter. CXR/sinus xray F/U 6 months Orders: Orders XR chest 2V Today J45.40 - Moderate persistent asthma, uncomplicated XR sinus min 3V Today J45.40 - Moderate persistent asthma, uncomplicated Medications: New budesonide-formoterol 160-4.5 mcg/actuation (Symbicort) 2 puffs inhalation BID 10.2 grams 11RF 30 days J44.89 - Other specified chronic obstructive pulmonary disease Coding Level of Care Code Est Pt Level 4 (87787) Diagnoses Chronic allergic rhinitis J30.9 Moderate persistent asthma without complication J45.40 Asthma complication type: uncomplicated Asthma persistence: persistent Asthma severity: moderate Dyspnea on exertion R06.00 Dyspnea type: dyspnea on exertion Time Spent (min) 17
[2024-07-02 10:17] VITALS: BP 132/74; PULSE 67; O2SAT 99; BMI 21.1
== END 2024-07-02 10:51 | disposition home or self-care (01) ==
PROVIDERS: PCP Nurse Practitioner Gerontology; Visit Provider Hospitalist
DX: J30.9 Allergic rhinitis, unspecified (principal); J45.40 Moderate persistent asthma, uncomplicated; R06.00 Dyspnea, unspecified
CPT/HCPCS: 99214

== ENCOUNTER → 2024-07-02 10:13 | Outpatient (BNVA) | payer MEDICARE, SELFPAY | PROVIDERS: PCP Nurse Practitioner Gerontology; Visit Provider Hospitalist | DX: J45.40 Moderate persistent asthma, uncomplicated (principal); J30.9 Allergic rhinitis, unspecified; R06.00 Dyspnea, unspecified | CPT/HCPCS: 99212 ==

== ENCOUNTER 2025-02-17 08:49 | Outpatient (REF) | payer MEDICARE, SELFPAY ==
--- OUTSIDE RECORDS SUMMARY | 2025-02-17 09:03 | XMS_ITS | Patient Health Record ---
Author Organization [facility] Address [address] [place] [id number] Care Team Providers Care Aerosol Line Operator Name Role Phone LORA SAMS CNP Primary Care Provider UnavailJose E Eid Jr Unavailable [phone] Allergies Allergen (clinical drug ingredient) Drug/Non Drug Allergy documented on EMR Reaction Allergy Type Onset Date Status penicillin G Penicillin G Sodium Unknown Drug Allergy Active Reason For Referral No Information Medications Medication SIG (Take, Route, Frequency, Duration) Notes Start Date End Date Status MiraLax (colon prep) 8.3 ounce ((238) grams mixed with Gatorade or Crystal Light orally begin at 5:00 p.m. the day before the procedure for 1 day 01/08/2020 Active Multivitamin Adults - as directed Orally Active Vitamin D 50 MCG (1999 UT) 1 capsule Ora lly Once a day for 30 day(s) Active Immunizations Vaccine Route Administration Date Status Comme nts Influenza Unknown 01/08/2020 Refused Social History Tobacco Use: Social History Observation Description Date Details (start date - stop date) Never Smoker NA - NA Tobacco Use/Smoking Question Answer Notes Patient is a nonsmoker Alcohol Screen Question Answer Notes Did you have a drink containing alcohol in the p ast year? No Points 0 Interpretation Negative Problems Problem Type SNOMED Code ICD Code Onset Dates Problem Status W/U Status Risk Notes Problem 839127094 Colon cancer screening (Z12.11) Active confirmed Problem 445108700 Elevated liver function tests (R79.89) Active confirmed Problem 825572290 Positive hepatitis C antibody test (R76.8) Active confirmed Plan Of Treatment Future Test Test Name Order Date COLONOSCOPY 01/08/2020 Next Appt Details Provider Name:Jose E kinney Jr, 03/06/2025 02:15:00 PM, [address] [facility], [address], [place], [address], Insurance Providers Payer Name Payer Address Payer Phone Subscriber Number Group Number Insured Name Patient Relationship to Insured Coverage Start Date Coverage End Date [facility] [address] [place] [phone] [id number] DAISHA LEWIS Self - patient is the insured Medical (General) History Medical History History ICD Code kidney stones degenerative disc disease allergic rhinitis Surgical History Surgery Date(Month/Year) tubal ligation hernia repair imbilical as child kidney stones/lithotripsy
--- OUTSIDE RECORDS SUMMARY | 2025-02-17 09:03 | XMS_ITS | Clinical Summary ---
Author Organization [facility] Address [address] [place] [address] Care Team Providers Care Timber Sprinkler Name Role Phone Unavailable Primary Care Provider Unavailabl e Allergies Active Allergy Reactions Criticality Noted Date Comments Azithromycin GI Intolerance/Nausea/Vomiting High Levofloxacin Myalgia/Myositis/Arthralgia/Arthritis High 01/02/2024 Penicillins Rash/Dermatitis,Swel ling,Unknown/Patie nt and Family Unable to Define High 01/02/2024 Strawberries Anaphylaxis,Rash/Dermatitis High 2023 Medications atorvastatin (LIPITOR) 20 MG tablet Take 1 tablet by mouth. 06/03/2024 Active famotidine (PEPCID) 40 MG tabletIndication s:Gastroesophage al reflux disease, unspecified whether esophagitis present Take 1 tablet (40 mg total) by mouth nightly. 30 tablet 3 01/14/2025 Active Active Problems Problem Noted Date Diagnosed Date Abnormality of lung on CXR 01/14/2025 Adjustment disorder with anxious mood 01/14/2025 Asthma 01/14/2025 Backache 01/14/2025 Hip pain 01/14/2025 Lower back pain 01/14/2025 Bilateral cataracts 01/14/2025 Chronic allergic rhinitis 01/14/2025 Colic, ureteral 01/14/2025 CVA (cerebral vascular accident) 01/14/2025 Degeneration of lumbar intervertebral disc 01/14 Disorder of thyroid gland 01/14/2025 Dyspnea 01/14/2025 Elevated blood pressure reading 01/14/2025 Elevated liver function tests 01/14/2025 Headache 01/14/2025 Hypercholesterolemia 01/14/2025 Hypertensive emergency 01/14/2025 Hypertensive retinopathy 01/14/2025 Kidney stone 01/14/2025 Renal calculi 01/14/2025 Lacunar infarction 01/14/2025 Left ureteral stone 01/14/2025 Omental infarction 01/14/2025 Pneumonia due to COVID-19 virus 01/14/2025 Pneumonitis 01/14/2025 Positive hepatitis C antibody test 01/14/2025 Situational anxiety 01/14/2025 Tension type headache 01/14/2025 Thyroid nodule 05/11/2023 Essential hypertension 05/11/2023 Osteopenia 05/11/2023 Osteoporosis 05/11/2023 Vitamin D deficiency 05/11/2023 Encounters Date Type Department Care Team Description 01/15/2025 Telephone [facility]GI [facility] [address] [address] [place] [address] Bryant Zaragoza MD 01/14/2025 1:45 PM EDT Office Visit [facility] [address], [place] [address] Kole Ash MD Gastroesophageal reflux disease, unspecified whether esophagitis present (Primary Dx); Esophageal dysphagia; Chronic throat clearing from Last 3 Months Immunizations Immunization Administration Dates Next Due Td, Unspecified 07/27/2018 Social History Tobacco Use Types Packs/Day Years Used Date Smoking Tobacco: Never Passive Smoke Exposure: Never Smokeless Tobacco: Never Comments Unknown Sex and Gender Information Value Date Recorded Sex Assigned at Not on file Legal Sex Female 1:15 PM EST Gender Identity Not on file Sexual Orientation Not on file Last Filed Vital Signs Vital Sign Reading Time Taken Comments Blood Pressure - - Pulse - - Temperature - - Respiratory Rate - - Oxygen Saturation - - Inhaled Oxygen Concentration - - Weight 46.3 kg (102 lb) 01/14/2025 1:48 PM EDT Height 149.9 cm (4' 11 ) 01/14/2025 1:48 PM EDT Body Mass Index 20.6 01/14/2025 1:48 PM EDT Plan of Treatment Upcoming Encounters Date Type Department Care Team (Late st Contact Info) Description 03/17/2025 1:00 PM EDT Office Visit [facility] [address], [place] [address] Kole Ash MD [address] [place] [address] Health Maintenance Due Date Last Done Comments Hepatitis C Virus Screening 1960 Pneumococcal Vaccines 50+ (1 of 2 - PCV) 1977 Mammogram 1998 Colonoscopy 12/27/2003 Zoster (Shingles) Vaccine (1 of 2) 2008 DTaP/Tdap/Td Vaccines (1 - Tdap) 07/28/2018 07/27/2018 RSV Vaccine 60 years and older and Patients (1 - Risk 60-74 years 1-dose series) 2018 DXA Bone Density (Females,Ages 65 and older) 12/27/2023 COVID-19 Vaccine (3 - 2023-2 5 season) 2024 11/23/2020, 10/26/2020 Influenza Vaccine 03/14/2025 Hepatitis B Vaccines Aged Out No long er eligible based on patient's age to complete this topic Insurance MEDICARE
--- OUTSIDE RECORDS SUMMARY | 2025-02-17 09:03 | XMS_ITS | Continuity of Care Document ---
Author Organization [facility] [address] [place] [address] Phone [phone] Care Team Providers Care Attending Urologist Name Role Phone Jennifer Jesus N.P. Care Team Information Pneumatic Systems Operator [phone] Problems Active Problems Provider Date Essential hypertension Giovani Raymond M.D. Ons et: 05/11/2023 Osteoporosis Giovani Raymond M.D. Onset: Vitamin D deficiency Giovani Raymond M.D. Onset : 05/11/2023 Osteopenia Giovani Raymond M.D. Onset: Thyroid nodule Giovani Raymond M.D. Onset: Social History Type Date Description Comments Sex Female Sex Unknown Tobacco Use Start: Unknown Never Smoked Cigarettes Smoking Status Reviewed: 05/11/23 Never Smoked Cigaret filiberto ETOH Use Never used alcohol Allergies and adverse reactions Active Allergies Criticality Reaction Severity Comments Date Strawberries Unable to assess criticality 05/11/2023 Penicillin Unable to assess criticality 05/11/2023 Medications Active Medications SIG Qnty Indications Ordering Provider Date Alendronate [id number] Tablets 1 tab by mouth every week 12tabs Giovani Raymond M.D. 06/01/2023 Vitamin D3 Gummies [id number] (1000 Ut) Chewtabs 2 qd Giovani Raymond M.D. 06/01/2023 Vital Signs Date Vital Result Comment 06/01/2023 3:03pm BP Systolic 98 mmHg BP Diastolic 60 mmHg Heart Rate 71 /min Height 59 inches 4'11 Weight 106.00 lb BMI (Body Mass Index) 21.4 kg/m2 Results Test Acquired Date Facility Test Result H/L Range N ote Complete Abc With Diff 05/11/2023 [facility] WBC 5.8 K/MM3 (4.0-11.0 ) RBC 4.91 M/MM3 (4.20-5.4 0) HGB 13.2 GM/DL (11.7-15. 5) HCT 42.1 % (35.7-45. 8) MCV 85.7 FL (80.0-100 .0) MCH 26.9 pg Low (27.0-34. 0) MCHC 31.4 g/dL Low (33.0-37. 0) PLT 242 K/MM3 (150-460) RDW-SD 43.7 FL (<47.0) MPV 10.9 FL (9.4-12.4 ) Automated NRBC 0.0 #/100WBC'S Abs. NRBC 0.0 K/MM3 Neut # 4.0 K/MM3 (1.3-7.0) Lymph # 1.4 K/MM3 (0.8-3.1) [place]# 0.3 K/MM3 Low (0.4-0.9) Eo # 0.0 K/MM3 (0.0-0.4) Baso # 0.1 K/MM3 (0.0-0.1) Abs. Imm Gran 0.0 K/MM3 Neut 68.7 % (44-76) Lymph 23.6 % (15-43) Monocyte 5.5 % (4.5-10.5 ) Eo 0.3 % (0-6) Baso 1.4 % (0-2) Imm Gran 0.5 % TSH With Reflex To FT4 05/11/2023 [facility] TSH With Reflex To FT4 0.70 uIU/mL (0.4-4.2) PTH, Intact 05/11/2023 [facility] PTH, Intact 58 pg/mL (15-65) Basic Metabolic Panel 05/11/2023 [facility] Glucose 118 mg/dL High (70-99) BUN 13 mg/dL (8-23) Creatinine 0.9 mg/dL (0.5-1.0) Sodium 143 mmol/L (133-145) Potassium 4.2 mmol/L (3.6-5.2) Chloride 105 mmol/L (98-107) Bicarbonate 30 mmol/L High (22-29) Anion Gap 8 (4-17) Calcium 9.4 mg/dL (8.6-10.5 ) Estimated GFR Creatinine 76 ML/MIN/1.7 3M2 1 25Oh Vitamin D 05/11/2023 [facility] 25Oh Vitamin D 18.3 NG/ML Low (20-50) Albumin 05/11/2023 [facility] Albumin 4.3 GM/DL (3.4-4.8) 1 Creatinine based est imated glomerular filtration (eGFR) in adults is calculated using the National [employer] recommended 2020 CKD-EPI equation. Estimates GFR from serum creatinine, age and sex. Medical Devices Description No Information Available Encounters Type Date Location Provider Dx Diagnosis Office Visit 06/01/2023 3:00p Main Office Giovani Raymond M.D. E04.1 Nontoxic single thyroid nodule M81.0 Age-related osteopor osis w/o current pathological fracture Assessments Date Code Description Provider 06/01/2023 E04.1 Thyroid nodule Giovani watson M.D. 06/01/2023 M81.0 Age-related oste oporosis without current pathological fracture Giovani Raymond M.D. Plan of Treatment 06/01/2023 - Giovani Raymond M.D.* E04.1 Thyroid nodule * M81.0 Age-related osteoporosis without current pathological fracture * Functional Status Description No Information Available Mental Status Description No Information Available Referrals Refer to Reason for Referral Status Appt Giovani Resendiz M.D. Created [address] [place] [address] [address] [place] [address] [phone]
[2025-02-17 11:00] LABS: Parathyroid Hormone Intact 78.6 pg/mL (8.7-77.1)
[2025-02-17 11:02] LABS: Anion Gap 10 (12-20); Blood Urea Nitrogen 14 mg/dL (9-16); Calcium 8.8 mg/dL (8.4-10.2); Carbon Dioxide 29 mmol/L (22-29); Chloride 107 mmol/L (96-108); Estimated Glomerular Filt Rate > 60; Magnesium 2.1 mg/dL (1.6-2.6); Potassium 3.9 mmol/L (3.3-5.1); Sodium 142 mmol/L (135-145); Uric Acid 4.3 mg/dL (2.4-5.7)
== END 2025-02-17 08:50 | disposition home or self-care (01) ==
LOC: HO.LAB 08:49
PROVIDERS: Visit Provider Urology
DX: N20.0 Calculus of kidney (principal)
CPT/HCPCS: 36415; 80048; 82306; 83735; 83970; 84100; 84550

== ENCOUNTER 2025-04-08 08:16 | Day surgery (SDC) | payer MEDICARE, SELFPAY ==
--- OUTSIDE RECORDS SUMMARY | 2025-03-06 15:13 | XMS_ITS ---
Author Name [facility] Organization Unknown History of Medication Use Medication Directions Dispensed Refills Start Date End Date Stat us famotidine (PEPCID) 40 MG tablet Take 1 tablet (40 mg total) by mouth nightly. 01/14/2025 active famotidine (PEPCID) 20 MG tablet Take 20 mg by mouth nightly. 12/12/2024 01/14/2025 aborted atorvastatin (LIPITOR) 20 MG tablet Take 1 tablet by mouth. 06/03/2024 active Allergies Allergen Reaction Severity Comment Documented Date Source Statu s STRAWBERRIES RASH/DERMATITIS 01/02/2024 [facility] active AZITHROMYCIN GI INTOLERANCE/NAUSEA/VOMITI NG [facility] LEVOFLOXACIN MYALGIA/MYOSITIS/ART HRALG IA/ARTHRITIS [facility] PENICILLINS UNKNOWN/PATIENT AND FAMILY UNABLE TO DEFINE [facility] Problems Problem Status Onset Date Problem Type Date of Resolution Source Asthma active 2025-01-14 ProblemAct [facility] Lower back pain active 2025-01-14 ProblemAct [facility] Positive hepatitis C antibody test active 2025-01-14 ProblemAct [facility] Osteoporosis active 2023-05-11 ProblemAct [facility] Chronic allergic rhinitis active 2025-01-14 ProblemAct [facility] Abnormality of lung on CXR active 2025-01-14 ProblemAct [facility] Left ureteral stone active 2025-01-14 ProblemAct [facility] Lacunar infarction active 2025-01-14 ProblemAct [facility] Pneumonitis active 2025-01-14 ProblemAct [facility] Degeneration of lumbar intervertebral disc active 2025-01-14 ProblemAct [facility] Kidney stone active 2025-01-14 ProblemAct [facility] Adjustment disorder with anxious mood active 2025-01-14 ProblemAct [facility] Omental infarction active 2025-01-14 ProblemAct [facility] CVA (cerebral vascular accident) active 2025-01-14 ProblemAct [facility] Gastroesophageal reflux disease, unspecified whether esophagitis present active EncounterDiagnosisAct [facility] Chronic throat clearing active EncounterDiagnos isAct [facility] Colic, ureteral active 2025-01-14 ProblemAct [facility] Esophageal dysphagia active EncounterDiagnosisA ct [facility] Osteopenia active 2023-05-11 ProblemAct [facility] Vitamin D deficiency active 2023-05-11 ProblemAct [facility] Headache active 2025-01-14 ProblemAct [facility] Essential hypertension active 2023-05-11 ProblemAct [facility] Hypercholesterolemia active 2025-01-14 ProblemAct [facility] Disorder of thyroid gland active 2025-01-14 ProblemAct [facility] Tension type headache active 2025-01-14 ProblemAct [facility] Elevated blood pressure reading active 2025-01-14 ProblemAct [facility] Hip pain active 2025-01-14 ProblemAct [facility] Hypertensive retinopathy active 2025-01-14 ProblemAct [facility] Dyspnea active 2025-01-14 ProblemAct [facility] Backache active 2025-01-14 ProblemAct [facility] Thyroid nodule active 2023-05-[address] Pneumonia due to COVID-19 virus active 2025-01-14 ProblemAct [facility] Bilateral cataracts active 2025-01-14 ProblemAct [facility] Elevated liver function tests active 2025-01-14 ProblemAct [facility] Hypertensive emergency active 2025-01-14 ProblemAct [facility] Situational anxiety active 2025-01-14 ProblemAct [facility] Immunizations Vaccine Date Source Lot Number Status Td, Unspecified 07/27/2018 [facility] [id number] completed Encounters Encounter Type Encounter Reason Primary Diagnosis Location Date Ambulatory [facility] 01/14/2025 Care Team Organization Name Specialty Phone Email Start Date End Da te Patient Feed 01/14/2025 02/12/2025 Patient Feed 10/14/2024
--- OUTSIDE RECORDS SUMMARY | 2025-03-06 15:13 | XMS_ITS | Clinical Summary ---
Author Organization [facility] Address [address] [place] [address] Care Team Providers Care Medical Scientist Name Role Phone Unavailable Primary Care Provider [...] Left ureteral stone 01/14/2025 Omental infarction 01/14/2025 Pneumonitis 01/14/2025 Positive hepatitis C antibody test 01/14/2025 Situational anxiety 01/14/2025 Tension type headache 01/14/2025 Thyroid nodule 05/11/2023 Essential hypertension 05/11/2023 Osteopenia 05/11/2023 Osteoporosis 05/11/2023 Vitamin D deficiency 05/11/2023 Resolved Problems Problem Noted Date Diagnosed Date Resolved Date Pneumonia due to COVID-19 virus 01/14/2025 02/17/2025 Encounters Date Type Department Care Team Description 01/15/2025 Telephone [facility] [address] [facility] [address] [place] [address] Bryant Zaragoza MD 01/14/2025 1:45 PM EDT Office Visit [facility] [address] [address] Kole Ash MD Gastroesophageal reflux disease, [...] Description 03/17/2025 1:00 PM EDT Office Visit [facility] [place] [id number] Kole Ash MD [address] [place], [place] [id number] Health Maintenance Due Date Last Done Comments [...]
--- OUTSIDE RECORDS SUMMARY | 2025-03-06 15:13 | XMS_ITS | Patient Health Record ---
Author Organization [facility] Address [address] [place] [address] Care Team Providers Care Supervisor Pumping Name Role Phone LORA SAMS CNP Primary Care Provider Unavailab Jose E Moreland Jr Unavailable Allergies Allergen (clinical drug ingredient) Drug/Non Drug Allergy documented on EMR Reaction Allergy Type Onset Date Status penicillin G Penicillin G Sodium Unknown Drug Allergy Active Reason For Referral No Information Medications Medication SIG (Take, Route, Frequency, Duration) Notes Start Date End Date Status Famotidine 20 MG TAKE 1 TABLET BY LIZBETH TH EVERYDAY AT BEDTIME Oral for 30 Days Active Vitamin D 50 MCG (1999) 1 capsule Ora lly Once a day for 30 day(s) Active Multivitamin Adults - as directed Orally Active Immunizations Vaccine Route Administration Date Status Comme nts Influenza Unknown 01/08/2020 Refused Influenza Unknown 03/06/2025 Refused Social History Tobacco Use: Social History [...] Problem Status W/U Status Risk Notes Problem 016239962 Colon cancer screening (Z12.11) Active confirmed Problem [id number] Elevated liver function tests (R79.89) Active confirmed Problem GERD (gastroesophage al reflux disease) (K21.9) Active confirmed Problem [id number] Positive hepatitis C antibody test (R76.8) Active confirmed Vital Signs Temperature 97.7 degrees Fahrenheit 03/06/2025 Blood pressure diastolic 01 mm Hg 03/06/2025 Height 59 in 03/06/2025 Blood pressure systolic 001 mm Hg 03/06/2025 Weight 103 lbs 03/06/2025 BMI 20.8 kg/m2 03/06/2025 Encounters Encounter Location Date Provider Diagnosis [facility] [address] [place] [address] 03/06/2025 Jose E Momin Jr GERD (gastroesophageal reflux disease) K21.9 ; Encounter for screening for malignant neoplasm of colon Z12.11 and History of adenomatous polyp of colon Z86.0101 Assessments Encounter Date Diagnosis (ICD Code) Assessment Notes Treatment Notes Treatment Clinical Notes Section Notes 03/06/2025 Encounter for screening for malignant neoplasm of colon (ICD-10 - Z12.11) 03/06/2025 GERD (gastroesophagea l reflux disease) (ICD-10 - K21.9) 03/06/2025 History of adenomatous polyp of colon (ICD-10 - Z86.0101) Plan Of Treatment Future Test Test Name Order Date COLONOSCOPY 01/08/2020 UPPER GI ENDOSCOPY 03/06/2025 COLONOSCOPY 03/06/2025 Next Appt Details Provider Name:Jose E kinney Jr, 04/08/2025 12:10:00 PM, [address] [facility] , [place], [place], [phone], Insurance Providers Payer Name Payer Address Payer Phone Subscriber Number Group Number Insured Name Patient Relationship to Insured Coverage Start Date Coverage End Date [facility] [address] [place] [address] [phone] [id number] DAISHA LEWIS Self - patient is the insured 4 Medical (General) History Medical History History ICD Code kidney stones degenerative disc disease allergic rhinitis Surgical History Surgery Date(Month/Year) kidney stones/lithotripsy hernia repair imbilical as child tubal ligation
--- OUTSIDE RECORDS SUMMARY | 2025-03-06 15:14 | XMS_ITS | Continuity of Care Document ---
Author Organization [facility] [address] [place] [address] Phone [phone] Care Team Providers Care Sergeant Missile Crewman Name Role Phone Jennifer Jesus N.P. Care Team Information Gameplay Engineer [phone] Problems Active Problems Provider Date Essential hypertension [...] SIG Qnty Indications Ordering Provider Date Alendronate [id number] Tablets 1 tab by mouth every week 12tabs Giovani Raymond M.D. 06/01/2023 Vitamin D3 Gummies [id number] (1000 Ut) Chewtabs 2 qd Giovani Raymond M.D. 06/01/2023 Vital Signs Date Vital Result Comment 06/01/2023 3:03pm BP Systolic 98 mmHg BP Diastolic 60 mmHg Heart Rate 71 /min Height 59 inches 4'11 Weight 106.00 lb BMI (Body Mass Index) 21.4 kg/m2 Results Test Acquired Date Facility Test Result H/L Range N ote Complete Abc With Diff 05/11/2023 [facility] WBC 5.8 K/MM3 (4.0-11.0 [...] K/MM3 (1.3-7.0) Lymph # 1.4 K/MM3 (0.8-3.1) [place]# 0.3 K/MM3 Low (0.4-0.9) Eo # 0.0 K/MM3 (0.0-0.4) Baso # 0.1 K/MM3 (0.0-0.1) Abs. Imm Gran 0.0 K/MM3 Neut 68.7 % (44-76) Lymph 23.6 % (15-43) Monocyte 5.5 % (4.5-10.5 ) Eo 0.3 % (0-6) Baso 1.4 % (0-2) Imm Gran 0.5 % TSH With Reflex To FT4 05/11/2023 [facility] TSH With Reflex To FT4 0.70 uIU/mL (0.4-4.2) PTH, Intact 05/11/2023 [facility] PTH, Intact 58 pg/mL (15-65) Basic Metabolic Panel 05/11/2023 [facility] Glucose 118 mg/dL High (70-99) BUN 13 mg/dL (8-23) Creatinine 0.9 mg/dL (0.5-1.0) Sodium 143 mmol/L (133-145) Potassium 4.2 mmol/L (3.6-5.2) Chloride 105 mmol/L (98-107) Bicarbonate 30 mmol/L High (22-29) Anion Gap 8 (4-17) Calcium 9.4 mg/dL (8.6-10.5 ) Estimated GFR Creatinine 76 ML/MIN/1.7 3M2 1 25Oh Vitamin D 05/11/2023 [facility] 25Oh Vitamin D 18.3 NG/ML Low (20-50) Albumin 05/11/2023 [facility] Albumin 4.3 GM/DL (3.4-4.8) [...] Referral Status Appt Giovani Resendiz M.D. Created [address] [place] [address] [address] [place] [address] [phone]
[2025-04-04 13:55] VITALS: BMI 20.8
--- NOTE | 2025-04-07 12:16 | P.CONAN_ITS ---
HPI - Anesthesia Eval Consult details Narrative: 64yo F for Upper Endoscopy and Colonoscopy [facility] Active Problems Active Problems: All Active Problems Bronchitis (Acute) Adjustment disorder with anxious mood (Acute) Elevated blood pressure reading (Acute) Headache (Acute) CVA (cerebral vascular accident) (Acute) Lacunar infarction (Acute) Dyspnea (Acute) Abnormality of lung on CXR (Acute) Pneumonitis (Acute) Pneumonia (Acute) Cough (Acute) Renal calculi (Acute) Chronic allergic rhinitis (Acute) Asthma (Acute) Pneumonia due to COVID-19 virus (Acute) Past Medical History Medical History Chronic allergic rhinitis Asthma Pneumonia due to COVID-19 virus Hx of thyroid nodule Allergic rhinitis DDD (degenerative disc disease) Renal calculi Family History Family History Father CVA (cerebral vascular accident) Mother CVA (cerebral vascular accident) Family history of problems with anesthesia: No Surgical History Surgical History H/O colonoscopy Hx of cystoscopy Status post laser lithotripsy of ureteral calculus History of umbilical hernia repair Hx of tubal ligation History of Problems with Anesthesia: Yes Social History Social History Household Members: Spouse Housing: House Do you presently have visiting nurse or other home services: No Alcohol intake: never Patient Tobacco Use Status: Never used Tobacco Advance Directives Date on File: 07/17/20 service: No Meds Allergies Allergy/AdvReac Type Severity Reaction Status Date / Time Penicillins (PCN) Allergy Severe SWELLING Verified 07/02/24 10:21 strawberry (STRAWBERRY) Allergy Severe ANAPHYLAXIS Verified 07/02/24 10:21 azithromycin (AZITHROMYCIN) Allergy Intermediate HIVES/GI Verified 07/02/24 10:21 UPSET levofloxacin (From LEVAQUIN) AdvReac Intermediate MUSCLE Verified 07/02/24 10:21 ACHES/TIGHTNESS Home Medications ?Medication ?Instructions ?Recorded ?Confirmed ?Last Taken ?Type ibuprofen 600 mg tablet 600 mg PO Q6H PRN pain 12/1904/04/25 Unknown History ondansetron HCl 4 mg tablet 4 mg PO Q8H PRN Nausea 04/04/25 Unknown History Exam Height,Weight and Vital Signs: Height 4 ft 11 in Weight 46.72 kg Assessment and Plan Assessment Anesthesia Assessment: Chart Reviewed Final Anesthetic Review Family History of Problems with Anesthesia: No History of Problems with Anesthesia: Yes
[2025-04-08 08:32] VITALS: BMI 21.0
[2025-04-08 08:45] VITALS: BP 122/64; PULSE 60; RESP 16; TEMP 36.3; O2SAT 97
[2025-04-08] MEDS: Lactated Ringers 1,000 ML 100 ML IVCONT (08:46)
--- NOTE | 2025-04-08 09:41 | HO.ANESPROP2 ---
[facility] Active Problems Active Problems: All Active Problems (Updated 04/04/25 @ 13:54 by Cassie March RN) Bronchitis (Acute) Adjustment disorder with anxious mood (Acute) Elevated blood pressure reading (Acute) Headache (Acute) CVA (cerebral vascular accident) (Acute) Lacunar infarction (Acute) Dyspnea (Acute) Abnormality of lung on CXR (Acute) Pneumonitis (Acute) Pneumonia (Acute) Cough (Acute) Renal calculi (Acute) Chronic allergic rhinitis (Acute) Asthma (Acute) Pneumonia due to COVID-19 virus (Acute) Past Medical History Medical History Chronic allergic rhinitis Asthma Pneumonia due to COVID-19 virus Hx of thyroid nodule Allergic rhinitis DDD (degenerative disc disease) Renal calculi Functional capacity: independent ambulation Patient : No Family History Family History Father CVA (cerebral vascular accident) Mother CVA (cerebral vascular accident) Family history of problems with anesthesia: No Surgical History Surgical History H/O colonoscopy Hx of cystoscopy Status post laser lithotripsy of ureteral calculus History of umbilical hernia repair Hx of tubal ligation History of Problems with Anesthesia: Yes Social History Social History Household Members: Spouse Housing: House Do you presently have visiting nurse or other home services: No Alcohol intake: never Patient Tobacco Use Status: Never used Tobacco Advance Directives Date on File: 07/17/20 service: No Meds Allergies Allergy/AdvReac Type Severity Reaction Status Date / Time Penicillins (PCN) Allergy Severe SWELLING Verified 07/02/24 10:21 strawberry (STRAWBERRY) Allergy Severe ANAPHYLAXIS Verified 07/02/24 10:21 azithromycin (AZITHROMYCIN) Allergy Intermediate HIVES/GI Verified 07/02/24 10:21 UPSET levofloxacin (From LEVAQUIN) AdvReac Intermediate MUSCLE Verified 07/02/24 10:21 ACHES/TIGHTNESS Active Medications: Current Medications Albuterol Sulfate (Albuterol Sulfate (0.083%) 2.5 Mg/3 Ml Vial.Neb) 2.5 mg INHALE ONCE PRN PRN Reason: Shortness of Breath/Wheezing Lactated Ringer's (Lr) 1,000 mls @ 100 mls/hr IVCONT .Q10H IVONNE Last Admin: 04/08/25 08:46 Dose: 100 mls/hr Home Medications ?Medication ?Instructions ?Recorded ?Confirmed ?Last Taken ?Type ibuprofen 600 mg tablet 600 mg PO Q6H PRN pain 12/20/23 04/04/25 Unknown History ondansetron HCl 4 mg tablet 4 mg PO Q8H PRN Nausea 01/02/24 04/04/25 Unknown History Exam Height,Weight and Vital Signs: Height 4 ft 11 in Weight 47.1 kg Last Vital Signs Temp 97.4 F 04/08/25 08:45 Pulse 60 04/08/25 08:45 Resp 16 04/08/25 08:45 BP 122/64 04/08/25 08:45 Pulse Ox 97 04/08/25 08:45 O2 Del Method Room Air 04/08/25 08:45 Airway Mallampati Class: III TM Dist: >3cm Neck ROM: Full Heart: RRR Lungs: CTA Assessment and Plan Assessment Anesthesia Assessment: Anesthesia Plan Discussed Final Anesthetic Review Family History of Problems with Anesthesia: No History of Problems with Anesthesia: Yes NPO: Yes ASA Class: III Final Preanesthetic Review: Meds/Allgs Chart Reviewed, Consent Obtained/Reviewed and Anes Risks/Benef Reviewed Patient Risk: Intermediate Procedure Risk: Low Anesthetic Plan Anesthetic Plan: MAC: Disposition: Standard PACU
--- NOTE | 2025-04-08 10:04 | P.HPSUR_ITS ---
Pre-Procedural Eval Section A - 24 Hr Update-Section A only Date of Service: 04/08/25 Section B - Complete if H&P > 30 days Chief Complaint: screening,gerd, Details of Present Illness: see H&PPno changes Relevant Family History (Specify if Yes): No Relevant Social History: None Present Medications: see Short Stay Collaborative assessment Medical History: No relevant PMH History of Previous Operations: No relevant previous surgery Allergies: Allergies Allergy/AdvReac Type Severity Reaction Status Date / Time Penicillins (PCN) Allergy Severe SWELLING Verified 07/02/24 10:21 strawberry (STRAWBERRY) Allergy Severe ANAPHYLAXIS Verified 07/02/24 10:21 azithromycin (AZITHROMYCIN) Allergy Intermediate HIVES/GI Verified 07/02/24 10:21 UPSET levofloxacin (From LEVAQUIN) AdvReac Intermediate MUSCLE Verified 07/02/24 10:21 ACHES/TIGHTNESS Review of Systems Sugical H&P ROS: Negative: Constitution, Cardiovascular, Respiratory, Neurological, Psychiatric, Hem-Onc, Allergic/Immunologic, Gastrointestinal, Genitourinary, Musculoskeletal, Integumentary, Endocrine and Eyes/Ears/Nose/Throat Exam Surgical H&P Exam: Normal: HEENT, Normal: Heart, Normal: Lungs, Normal: Extremi ties, Normal: Abdomen, Normal: Skin and Normal: Neurological Plan Diagnosis/Plan: Unchanged I have reviewed the history and physical and performed a pertinent physical examination on my patient. No changes have occurred unless specified. Time Spent With Patient Time: Total time managing care of this patient today ____ minutes.
[2025-04-08 10:57] VITALS: BP 81/40; PULSE 67; RESP 16; TEMP 36.1; O2SAT 98
[2025-04-08 11:12] VITALS: BP 87/40; PULSE 58; RESP 16; O2SAT 98
--- NOTE | 2025-04-08 11:24 | HO.POSTANES ---
Post Anesthesia Evaluation Post Anesthesia Evaluation Date of Service: 04/08/25 Vital Signs: Vital Signs Temp Pulse Resp BP Pulse Ox O2 Del Method 04/08/25 11:12 58 16 87/40 L 98 Room Air 04/08/25 10:57 97 F 67 16 81/40 L 98 Room Air 04/08/25 08:45 97.4 F 60 16 122/64 97 Room Air Anesthesia: Monitored Mental Status: Awake Pain Control: Satisfactory Hydration: Adequate Anesthesia-Related Issues: No Anes. Related Issues
[2025-04-08 11:27] VITALS: BP 109/57; PULSE 52; RESP 16; O2SAT 100
[2025-04-08 11:37] VITALS: BP 113/50; PULSE 50; RESP 16; TEMP 36.4; O2SAT 100
--- NOTE | 2025-04-08 11:40 | OP_ITS ---
DATE OF SERVICE: 04/08/2025 SURGEON: Jose E Momin MD INDICATIONS: Gastroesophageal reflux disease and colon cancer screening and prior history of colon polyps. PREOPERATIVE DIAGNOSIS: POSTOPERATIVE DIAGNOSIS: PROCEDURE PERFORMED: Upper endoscopy with biopsy, colonoscopy to the terminal ileum with biopsy. ESTIMATED BLOOD LOSS: COMPLICATIONS: ANESTHESIA: Monitored anesthesia care. ASSISTANTS: SPECIMENS: DESCRIPTION OF PROCEDURE: A history and physical was performed. The risks and benefits of the procedure were explained to the patient. Informed consent was obtained. The patient was placed in the left lateral decubitus position. The Olympus video gastroscope was introduced into the esophagus, stomach, and duodenum. Examination was performed. The scope was removed. She was repositioned for colonoscopy. A digital rectal exam was performed and was found to be normal. The Olympus pediatric video colonoscope was introduced into the rectum and advanced to the cecum. The cecum was identified by transillumination, palpation, and identification of ileocecal valve. Examination was performed. The scope was removed. She tolerated both procedures well and was returned to the recovery area in stable condition. FINDINGS: Upper endoscopy: 1. Esophagus: The esophagus showed a slightly irregular EG junction with no significant esophagitis. Biopsies were obtained from the EG junction. 2. Stomach: The stomach was normal. Antral biopsies were obtained. 3. Duodenum: The bulb and 2nd portion were normal. Colonoscopy: The terminal ileum was examined and appeared normal. Visualized colonic mucosa was normal. The quality of the prep was good. A single polyp measuring less than 5 mm was removed with a biopsy forceps at 15 cm from the anal verge. There was mild sigmoid diverticulosis. Retroflexed examination showed some small internal hemorrhoids. IMPRESSION: 1. Gastroesophageal reflux disease. 2. Colon polyp. RECOMMENDATION: Follow up the biopsy results. MD MANPREET Ross/ENOC / [id number]
== END 2025-04-08 11:57 | disposition home or self-care (01) ==
PROVIDERS: PCP Nurse Practitioner Gerontology; Visit Provider Internal Medicine Gastroenterology
PROC: (CPT 45380; principal; 2025-04-08 10:20)
DX: Z12.11 Encounter for screening for malignant neoplasm of colon (principal); Z86.0101 Personal history of adenomatous and serrated colon polyps; K63.5 Polyp of colon; K57.30 Diverticulosis of large intestine without perforation or abscess without bleeding; K64.8 Other hemorrhoids; K21.9 Gastro-esophageal reflux disease without esophagitis; K29.50 Unspecified chronic gastritis without bleeding; B96.81 Helicobacter pylori [H. pylori] as the cause of diseases classified elsewhere; K31.A11 Gastric intestinal metaplasia without dysplasia, involving the antrum; J30.9 Allergic rhinitis, unspecified; Z87.442 Personal history of urinary calculi; Z79.1 Long term (current) use of non-steroidal anti-inflammatories (NSAID); Z79.899 Other long term (current) drug therapy; Z88.0 Allergy status to penicillin; Z88.1 Allergy status to other antibiotic agents
CPT/HCPCS: 45380; 43239; 88305; 88313; 88342; J2003; J2371; J2704

== ENCOUNTER 2025-06-18 08:06 | Outpatient (REF) | payer MEDICARE, SELFPAY ==
--- OUTSIDE RECORDS SUMMARY | 2025-04-08 06:10 | XMS_ITS ---
Author Organization [facility] Address [address] [facility] [address] [place] [address] Care Team Providers Care Electrician Third Name Role Phone LORA SAMS CNP Primary Care Provider Unavailab Jose E Moreland Jr [phone] REASON FOR VISIT SCREENING AND GERD Encounters Encounter Location Date Provider Diagnosis [facility] [address] [place] [phone] 04/08/2025 Jose E Momin Jr Plan Of Treatment Next Appt Details Provider Name:Jose E kinney Jr, 07/07/2025 02:15:00 PM, [address] [facility], Suite [facility], [place], [address], Progress Notes * TD LEWISSDOB:0 1960 (64 yo F)Acc No.[id number]:04/08/2025 EGD and COL/MAC Patient: DAISHA MARX Provider: Bart Momin MD :1960 A ge:64 Y S ex:Female Date:04/08/2025 Address:[address] [place] [address] Pcp:LORA SAMS CNP Subjective: * Chief Complaints: * 1 . SCREENING AND GERD. * Medical History: Objective: * Vitals: Assessment: Plan: * Treatment: * * The named appointment provid er may or may not be the originator of this progress note, and it is not deemed complete until electronically signed by the appointment provider. Sign off status: Pending * Provider: Bart Momin MD Date: 0 04/08/2025 Generated for Nena glynn/Chani/Perico on: 08/18/2024 08:16 AM EST
--- NOTE | ~2025-06-18 | XR_ITS ---
EXAMINATION: XR CHEST CLINICAL INFORMATION: R07.81 - Pleurodynia COMPARISON: October 07, 2020. TECHNIQUE: PA and lateral views FINDINGS: Hyperinflated lungs. Pulmonary reticular pattern, mild. Patchy opacity, lingula. No pleural effusion. No pneumothorax. Cardiomediastinal silhouette size is normal. Multilevel thoracolumbar spondylosis. S-shaped curvature of the thoracolumbar spine. Osteopenia versus osteoporosis. XR/XR sinus min 3V IMPRESSION: Hyperinflated lungs suggesting COPD emphysematous type changes with the questionable airspace disease, lingula. Multilevel spondylosis and scoliosis, thoracolumbar spine. EXAMINATION: XR SINUSES CLINICAL INFORMATION: J 45.40. Moderate persistent asthma, uncomplicated. COMPARISON: Correlated to CT head dated October 30, 2021. TECHNIQUE: AP, lateral, axial and Guerra projection. FINDINGS: Paranasal sinuses are well pneumatized and aerated. No air-fluid levels. No acute cortical disruption. No lytic or blastic lesions. No metallic or radiopaque foreign body in the orbits. IMPRESSION: No acute paranasal sinus disease. Electronically signed by: Jacob Vásquez MD 06/18/2025 08:42 AM EST
--- NOTE | ~2025-06-18 | XR_ITS ---
EXAMINATION: XR CHEST CLINICAL INFORMATION: R07.81 - Pleurodynia COMPARISON: October 07, 2020. TECHNIQUE: PA and lateral views FINDINGS: Hyperinflated lungs. Pulmonary reticular pattern, mild. Patchy opacity, lingula. No pleural effusion. No pneumothorax. Cardiomediastinal silhouette size is normal. Multilevel thoracolumbar spondylosis. S-shaped curvature of the thoracolumbar spine. Osteopenia versus osteoporosis. XR/XR chest 2V IMPRESSION: Hyperinflated lungs suggesting COPD emphysematous type changes with the questionable airspace disease, lingula. Multilevel spondylosis and scoliosis, thoracolumbar spine. EXAMINATION: XR SINUSES CLINICAL INFORMATION: J 45.40. Moderate persistent asthma, uncomplicated. COMPARISON: Correlated to CT head dated October 30, 2021. TECHNIQUE: AP, lateral, axial and Guerra projection. FINDINGS: Paranasal sinuses are well pneumatized and aerated. No air-fluid levels. No acute cortical disruption. No lytic or blastic lesions. No metallic or radiopaque foreign body in the orbits. IMPRESSION: No acute paranasal sinus disease. Electronically signed by: Jacob Vásquez MD 06/18/2025 08:42 AM EST
--- OUTSIDE RECORDS SUMMARY | 2025-06-18 08:16 | XMS_ITS | Clinical Summary ---
Author Organization [facility] Address [address] [place] [id number] Care Team Providers Care Legislative Analyst Name Role Phone Jose E Momin MD Primary Care Provider [phone] Allergies Active Allergy Reactions Criticality Noted Date [...] Encounters Date Type Department Care Team Description 05/12/2025 Scanned Document [facility] [address] [place] [address] Kole Ash MD from Last 3 Months Immunizations Immunization Administration [...] - - Weight 46.3 kg (102 lb) 03/17/2025 1:08 PM EDT Height 149.9 cm (4' 11 ) 03/17/2025 1:08 PM EDT Body Mass Index 20.6 03/17/2025 1:08 PM EDT Plan of Treatment Health Maintenance Due Date Last Done Comments Advance Care Planning 1960 Hepatitis C Virus Screening 1960 Pneumococcal Vaccines 50+ (1 of 2 - PCV) 1977 Mammogram 1998 Colonoscopy 12/27/2003 RSV Vaccine 50 years and older and Patients (1 - Risk 50-74 years 1-dose series) 2008 Zoster (Shingles) Vaccine (1 of 2) 2008 DTaP/Tdap/Td Vaccines (1 - Tdap) 07/28/2018 07/27/2018 DXA Bone Density (Females,Ages 65 and older) 12/27/2023 Influenza Vaccine 03/14/2025 COVID-19 Vaccine (3 - 2024-2 6 season) 2025 11/23/2020, 10/26/2020 Hepatitis B Vaccines Aged Out No long er eligible based on patient's age to complete this topic Insurance [facility]IC[facility] Care Teams Legislative Analyst Relationship Specialty Start Date End Date Jose E Momin MD [address] [place] [address] [place] [address] PCP - General 03/14/25
--- OUTSIDE RECORDS SUMMARY | 2025-06-18 08:17 | XMS_ITS | Encounter Summary ---
Author Organization [facility] Address [address] [place] [address] Care Team Providers Care Athletic Equipment Custodian Name Role Phone Jose E Momin MD Primary Care Provider [phone] Encounter Details Date Type Department Care Team (Late st Contact Info) Description 05/12/2025 Scanned Document [facility] [address] [place] [address] Kole Ash MD [address] [place] [id number] Social History Tobacco Use Types Packs/Day Years Used Date Smoking Tobacco: Never Passive Smoke Exposure: Never Smokeless Tobacco: Never Comments Unknown Sex and Gender Information Value Date Recorded Sex Assigned at Not on file Legal Sex Female 1:15 PM EST Gender Identity Not on file Sexual Orientation Not on file documented as of this encounter Plan of Treatment Not on file documented as of this encounter Visit Diagnoses Not on filedocumented in this encounter Care Teams Athletic Equipment Custodian Relationship Specialty Start Date End Date Jose E Momin MD [address] [place] [address] [id number] PCP - General 03/14/25 documented as of this encounter
--- OUTSIDE RECORDS SUMMARY | 2025-06-18 08:17 | XMS_ITS | Continuity of Care Document ---
Author Organization [facility] [address] [place] [address] Phone [phone] Care Team Providers Care Patient Safety Sitter Name Role Phone Jennifer Jesus N.P. Care Team Information Training Instructor [phone] Problems Active Problems Provider Date Essential hypertension Giovani Raymond M.D. Ons et: 05/11/2023 Osteoporosis Giovani Raymond M.D. Onset: Vitamin D deficiency Giovani Raymond M.D. Onset : 05/11/2023 Osteopenia Giovani Raymond M.D. Onset: Thyroid nodule Giovani Raymond M.D. Onset: Social History Type Date Description Comments Sex Female Sex Unknown Tobacco Use Start: Unknown Never Smoked Cigarettes ETOH Use Never used alcohol Allergies and adverse reactions Active Allergies Criticality Reaction Severity Comments Date Strawberries Unable to assess criticality 05/11/2023 Penicillin Unable to assess criticality 05/11/2023 Medications Active Medications SIG Qnty Indications Ordering Provider Date Alendronate [id number] Tablets 1 tab by mouth every week 12tabs Giovani Raymond M.D. 06/01/2023 Vitamin D3 Gummies [id number] (1000 Ut) Chewtabs 2 qd Giovani Raymond M.D. 06/01/2023 Vital Signs Date Vital Result Comment 06/01/2023 3:03pm BP Systolic 98 mmHg BP Diastolic 60 mmHg Heart Rate 71 /min Height 59 inches 4'11 Weight 106.00 lb BMI (Body Mass Index) 21.4 kg/m2 Results Test Acquired Date Facility Test Result H/L Range N ote Complete Abc With Diff 05/11/2023 [facility] WBC 5.8 K/MM3 (4.0-11.0 [...] K/MM3 (1.3-7.0) Lymph # 1.4 K/MM3 (0.8-3.1) [place]# 0.3 K/MM3 Low (0.4-0.9) Eo # 0.0 K/MM3 (0.0-0.4) Baso # 0.1 K/MM3 (0.0-0.1) Abs. Imm Gran 0.0 K/MM3 Neut 68.7 % (44-76) Lymph 23.6 % (15-43) Monocyte 5.5 % (4.5-10.5 ) Eo 0.3 % (0-6) Baso 1.4 % (0-2) Imm Gran 0.5 % TSH With Reflex To FT4 05/11/2023 [facility] TSH With Reflex To FT4 0.70 uIU/mL (0.4-4.2) PTH, Intact 05/11/2023 [facility] PTH, Intact 58 pg/mL (15-65) Basic Metabolic Panel 05/11/2023 [facility] Glucose 118 mg/dL High (70-99) BUN 13 mg/dL (8-23) Creatinine 0.9 mg/dL (0.5-1.0) Sodium 143 mmol/L (133-145) Potassium 4.2 mmol/L (3.6-5.2) Chloride 105 mmol/L (98-107) Bicarbonate 30 mmol/L High (22-29) Anion Gap 8 (4-17) Calcium 9.4 mg/dL (8.6-10.5 ) Estimated GFR Creatinine 76 ML/MIN/1.7 3M2 1 25Oh Vitamin D 05/11/2023 [facility] 25Oh Vitamin D 18.3 NG/ML Low (20-50) Albumin 05/11/2023 [facility] Albumin 4.3 GM/DL (3.4-4.8) [...] Referral Status Appt Giovani Resendiz M.D. Created [address] [place] [address] [address] [place] [address] [phone]
--- OUTSIDE RECORDS SUMMARY | 2025-06-18 08:17 | XMS_ITS | Patient Health Record ---
Author Organization [facility] Address [address] [place] [address] Care Team Providers Care Body Liner Name Role Phone LORA SAMS CNP Primary Care Provider UnavailJose E Eid Jr Unavailable [phone] Allergies Allergen (clinical drug ingredient) Drug/Non Drug Allergy documented on EMR Reaction Allergy Type Onset Date Status penicillin G Penicillin G Sodium Unknown Drug Allergy Active Results Component Value Reference Range Notes Pathology Reviewed date:04/10/2025 01:15:56 PM Interpretation: Performing Lab:[facility], [address] [place] [phone] Notes/Report: Reason For Referral No Information Medications Medication SIG (Take, Route, Frequency, Duration) Notes Start Date End Date Status Famotidine 20 MG TAKE 1 TABLET BY LIZBETH TH EVERYDAY AT BEDTIME Oral; Duration: 30 Days Active Omeprazole 20 MG 1 Orally Twice daily ; Duration: 14 days 04/10/2025 Active Bismuth Subsalicylate 525 MG 1 Orally 4 times daily; Duration: 14 days 04/10/2025 Active Vitamin D 50 MCG (1999 UT) 1 capsule Ora lly Once a day; Duration: 30 day(s) Active Multivitamin Adults - as directed Orally Active metroNIDAZOLE 500 MG 1 tablet Orally Thr ee times a day; Duration: 14 days 04/10/2025 Active Tetracycline HCl 500 MG 1 capsule on an empty stomach Orally 4 times daily; Duration: 14 days 04/10/2025 Active Immunizations Vaccine Route Administration Date Status [...] Problem Status W/U Status Risk Notes Problem Colon cancer screening (299526295) Colon cancer screening (Z12.11) Active confirmed Problem Elevated liver enzymes level (741480681) Elevated liver function tests (R79.89) Active confirmed Problem Gastroesophageal reflux disease (389321266) GERD (gastroesopha geal reflux disease) (K21.9) Active confirmed Problem Hepatitis C antibody test positive (634774151) Positive hepatitis C antibody test (R76.8) Active confirmed Vital Signs Temperature 97.7 degrees Fahrenheit 03/06/2025 Blood pressure diastolic 01 mm Hg 03/06/2025 Height 59 in 03/06/2025 Blood pressure systolic 001 mm Hg 03/06/2025 Weight 103 lbs 03/06/2025 BMI 20.8 kg/m2 03/06/2025 Encounters Encounter Location Date Provider Diagnosis [facility] [address] [place] [id number] 04/08/2025 Jose E Momin Jr [facility] [address] [place] [phone] 03/06/2025 Jose E Momin Jr GERD (gastroesophageal reflux disease) K21.9 ; Encounter for screening for malignant neoplasm of colon Z12.11 and History of adenomatous polyp of colon Z86.0101 [facility] [address] [place] [phone] 04/01/2025 Jose E Momin Jr [facility] [address] [place] [phone] 04/10/2025 Jose E Momin Jr H. pylori infection B96.81 Assessments Encounter Date Diagnosis (ICD Code) Assessment Notes Treatment Notes Treatment Clinical Notes Section Notes 03/06/2025 Encounter for screening for malignant neoplasm of colon (ICD-10 - Z12.11) We discussed gastroesophageal reflux disease today. We discussed diet, lifestyle modifications, and weight management. Further evaluation will be undertaken with endoscopy. She is aware of risks and benefits and agrees to proceed. She is also due for screening colonoscopy because of her personal history of polyps. We will obtain and review her ENT records as they become available. 03/06/2025 GERD (gastroesophage al reflux disease) (ICD-10 - K21.9) We discussed gastroesophageal reflux disease today. We discussed diet, lifestyle modifications, and weight management. Further evaluation will be undertaken with endoscopy. She is aware of risks and benefits and agrees to proceed. She is also due for screening colonoscopy because of her personal history of polyps. We will obtain and review her ENT records as they become available. 04/10/2025 H. pylori infection (ICD-10 - B96.81) 03/06/2025 History of adenomatous polyp of colon (ICD-10 - Z86.0101) We discussed gastroesophageal reflux disease today. We discussed diet, lifestyle modifications, and weight management. Further evaluation will be undertaken with endoscopy. She is aware of risks and benefits and agrees to proceed. She is also due for screening colonoscopy because of her personal history of polyps. We will obtain and review her ENT records as they become available. Plan Of Treatment Pending Test Test Name Order Date H PYLORI AG, STOOL 04/10/2025 Future Test Test Name Order Date COLONOSCOPY 01/08/2020 UPPER GI ENDOSCOPY 03/06/2025 COLONOSCOPY 03/06/2025 Next Appt Details Provider Name:Jose E kinney , 07/07/2025 02:15:00 PM, [address] [place] [address], [address], [place], [address], Insurance Providers Payer Name Payer Address Payer Phone Subscriber Number Group Number Insured Name Patient Relationship to Insured Coverage Start Date Coverage End Date [facility] [address] [place] [phone] [id number] DAISHA LEWIS Self - patient is the insured 4 Medical (General) History Medical History History ICD Code kidney stones degenerative disc disease allergic rhinitis Surgical History Surgery Date(Month/Year) kidney stones/lithotripsy hernia repair imbilical as child tubal ligation
== END 2025-06-18 08:07 | disposition home or self-care (01) ==
LOC: HO.XRAY 08:06
PROVIDERS: Visit Provider Hospitalist
DX: R05.2 Subacute cough (principal); R07.81 Pleurodynia; J45.40 Moderate persistent asthma, uncomplicated; R06.09 Other forms of dyspnea; Z79.51 Long term (current) use of inhaled steroids
CPT/HCPCS: 70220; 71046; 99212

== ENCOUNTER → 2025-06-18 08:09 | Outpatient (BNV) | payer MEDICARE, SELFPAY | PROVIDERS: Visit Provider Radiology Diagnostic Radiology | DX: J98.4 Other disorders of lung (principal); M47.815 Spondylosis without myelopathy or radiculopathy, thoracolumbar region; M41.85 Other forms of scoliosis, thoracolumbar region; J45.40 Moderate persistent asthma, uncomplicated | CPT/HCPCS: 70220; 71046 ==

== ENCOUNTER 2025-06-18 09:23 | Outpatient (AMB) | payer MEDICARE, SELFPAY ==
[2025-06-18 09:30] VITALS: BP 104/60; PULSE 76; O2SAT 96; BMI 20.3
--- NOTE | 2025-06-18 09:30 | A.OFFVIS_ITS ---
Vital Signs 06/18/25 09:30 Height 4 ft 11 in Weight 100 lb 4.965 oz BMI 20.3 BP 104/60 Blood Pressure Location Lt brachial Position Sitting Pulse 76 Pulse Source Pulse Oximeter Pulse Oximetry (%) 96 Oxygen Delivery Method Room Air Intake Visit Reasons: Lung pain / per MR Territory Outside Sales Manager Required: No Accompanied by: Self / Same As Patient Allergies Penicillins (PCN) Allergy (Severe, Verified 06/18/25 09:32) SWELLING strawberry (STRAWBERRY) Allergy (Severe, Verified 06/18/25 09:32) ANAPHYLAXIS azithromycin (AZITHROMYCIN) Allergy (Intermediate, Verified 06/18/25 09:32) HIVES/GI UPSET levofloxacin (From LEVAQUIN) Adverse Reaction (Intermediate, Verified 06/18/25 09:32) MUSCLE ACHES/TIGHTNESS HPI Comments Details: The patient is a 64-year-old woman who has a unremarkable past medical history until back in the end of July when she started having symptoms consistent with COVID-19. She was tested positive for COVID-19 on August 04 and did have issues with cough. While she was sick with the COVID she did have worsening shortness of breath. She did have a nebulizer available and she did treat herself with albuterol. Her symptoms did improve some degree. She initially she was very short of breath even going up a flight of stairs. Moderate severity. Also had a significant cough specially when she try taking a deep breath which she was started coughing after doing so. Sometimes the coughing spells could result in some lightheadedness. The patient did undergo a chest x-ray at [facility] which I personally reviewed demonstrating bilateral hazy opacities left more than right primarily at the bases consistent with the COVID 19 pneumonia. The patient has not been coughing any secretions. She denies any fevers or chills. Her pulse oximetry has been good between 97- 98%. On examination she still has some crackles. Therefore will treat her with a low-dose prednisone and would be reasonable to give her some doxycycline in the meantime. Will follow up with her chest x-ray and pulmonary function studies. 01/20/2021 the patient is here for pulmonary follow-up visit. She developed COVID back in July and she still complaining of some underlying respiratory complaints and also having significant muscle spasms specially for back. Denies any pleuritic chest discomfort. She still noticing some dyspnea on exertion. Asyw-fq-oqfofsdt severity. Depending on the activity. She went swimming once and she felt very short of breath while she was swimming she was very concerned because she is an avid swimmer. The patient did not have her pulmonary function studies. We did review her CXR from 09/2020 with RLL opacity ?effusion. 05/20/2021 the patient is here for pulmonary follow-up visit. Overall she is feeling better. She is going back to the gym and exercising. She has not noticed any significant limitations from a respiratory status. The patient did not have her follow-up chest x-ray. However, she did have pulmonary function studies that were personally by me. Appears that she does have low normal forced vital capacity and normal total lung capacity. She has a moderate diffusion impairment. Therefore she does have some residual changes that she developed after COVID. We did again review her last chest x-ray demonstrating some slight opacity to the right to based suggesting some degree of thickening of the pleura in addition to pleural effusion. I will have the patient get an x-ray in the next few months. Overall she is clinically doing better. However, if she notices any worsening symptoms she is to call for an earlier visit and have the x-ray at a earlier time. 04/18/2023 the patient is here for pulmonary follow-up visit. the patient just got back from vacation. She became sick. Started developing bronchitis symptoms chest congestion chest tightness. Moderate severity. She was evaluated by primary care doctor and also urgent care. No x-rays were done. The patient was started to have a viral syndrome. She did test negative for COVID-19. She was not given any medication. She did get upyx-rgh-acpgats cough medication. Ultimately ended up getting some codeine cough syrup which is helpful. Still does not feel right. Still having chest tightness. On examination she does have wheezing and some rhonchi. the patient is also congested bringing up some light colored phlegm. We did review her last chest x-ray which was slightly abnormal with a small pleural effusion and atelectasis. In addition to that she did have pulmonary function studies last year demonstrating significant small airways disease in a normal total lung capacity and a moderate diffusion impairment. This is all the results of significant COVID. At this point the patient will be started on a course of antibiotics to treat the bronchitis along with a small dose of prednisone. In addition to that she will have her rescue medication available. Will plan to repeat her chest x- ray and PFTs and follow-up. The patient also has been issues with musty smells and humidity. Will go ahead and requested additional blood work to assess her allergies in immune status. 06/19/2023 the patient is here for pulmonary follow-up visit. Since we last spoke the patient has been feeling better regarding her bronchitis. She did taking medications. Although now she is having increasing cough and nasal congestion. Has a significant postnasal drip. Isn't very bothersome. She is not using any nasal sprays right now. The patient did go to her eye doctor and she was told that she had elevated pressures. But she is not clear about the diagnosis. Sounds of glaucoma. Therefore will avoid anticholinergic therapy which potentially will help her postnasal drip. Will start her on Dymista and also would benefit from Bentson as to minimize cough. We did review her allergy testing. She does have significant allergies to dust mites with an elevated IgE. Her IgA levels were elevated although during that time she did have bronchitis and therefore likely related to the ongoing infection. At some point she should have blood work to follow-up the IgE elevation. The patient also may benefit from a maintenance inhaler. At this time though she is not having sign ificant wheezing so therefore will try the treatment for the upper respiratory cough syndrome. If she is no better we can always put her on a maintenance inhaler. The patient ultimately if she continues to be symptomatic were qualify for biologic therapy such as Xolair. 01/02/2024 the patient is here for a pulmonary follow-up visit. She just recently had a ureter stent removed for kidney stones. She has been dealing with that for some time now. Otherwise her asthma seems to be in good control with current respiratory medications. However, her allergies have been more significant. She has had significant runny of the eyes and itchiness of the skin and nasal congestion. She is going to start her nasal sprays. She needs additional allergy medicine at this time. We did review her allergy testing. It was pretty limited. It looks like her IgE was elevated from underlying allergies this is back in the fall. In addition to that she was only allergic to dust mites and also [place] trees. I explained to her that this is a limited panel. She is probably allergic to multiple things based on her elevated IgE of 215. But, the common things are not demonstrating any significant reaction to. Will go ahead and recheck her IgE level and eosinophil level whenever she is able to do so. At this point though will continue with current respiratory regimen will add additional allergy therapies. 07/02/2024 the patient is here for a pulmonary sick visit. She is having worsening nasal congestion and also cough. She was prescribed nasal sprays but she is concerned about use it regularly. She uses them as needed and very seldomly. She has had an episode where she had significant postnasal drip to the point that she was choking. The patient went to an urgent care to be evaluated for the sinus congestion she was given doxycycline for sinusitis. Does not feel like she has any sinus pressure at this time. The patient also has had a cough. It has been aggravating her. Significant chest tightness. Moderate severity. The patient does have underlying allergies. They seem to be worsened in the fall. However she needs to make sure to take her medications. Explained to her the Dymista she needs to use on a regular basis. I will send her ipratropium nasal spray that she can use as needed to try to help her with her significant nasal discharge. In addition to that she has not wheezing on exam and she can try some Symbicort. The Symbicort she can use once or twice a day. Will have her get an x-ray of the sinuses and also the chest. Will follow-up in August. If the patient is no better she will call for an earlier assessment. 06/18/2025 the patient is here for sick visit. She started developing left- sided pleuritic chest discomfort moderate severity. Worse when he takes a deep breath in her cough. She became concerned and alarmed because she knows that people can develop pneumonia. Therefore she called the office. We had her get a chest x-ray and also visit. The patient did have a chest x-ray demonstrating some hazy opacities in the left lingular area. It is very minimal in his more questionable. Although it chronic correlates with her symptoms. Her exam is benign I do not appreciate any significant crackles or rub in that area. Therefore, the patient will start antibiotic therapy. In addition to a Medrol Driss. The patient will call by the end of the week if she is not any better she is going to undergo blood work including a D-dimer. Also to note the patient has a chronic cough. The cough sometimes aggravates her especially because he feels his postnasal drip related. She did see ENT in the found that she likely had inflammation larynx secondary to reflux. Ultimately she did undergo an endoscopy demonstrating evidence of gastritis and esophagitis and also H pylori. She did try the H pylori medications but she did not tolerate it. She understands that on Medrol she can have worsening gastritis so I will send a prescription for PPI that she can use 4 months time. [facility] Medical History Chronic allergic rhinitis Asthma Pneumonia due to COVID-19 virus Hx of thyroid nodule Allergic rhinitis DDD (degenerative disc disease) Renal calculi Surgical History H/O colonoscopy Hx of cystoscopy Status post laser lithotripsy of ureteral calculus History of umbilical hernia repair Hx of tubal ligation Family History Father CVA (cerebral vascular accident) Mother CVA (cerebral vascular accident) Social History Household Members: Spouse Housing: House Do you presently have visiting nurse or other home services: No Alcohol intake: never Patient Tobacco Use Status: Never used Tobacco Advance Directives Date on File: 07/17/20 service: No Review of Systems Const Denies night sweats Eyes Reports no additional complaints ENT Denies change in voice, Denies lip swelling, Denies mouth pain, Reports nasal congestion, Reports nasal discharge, Reports post nasal drip and Denies tongue swelling Card Reports chest pain and Denies dyspnea on exertion Resp Denies chest congestion, Reports cough, Reports pain on inspiration, Reports pain with cough, Denies dyspnea on exertion and Reports wheezing GI Denies abdominal pain Musc Denies no additional complaints and Reports back pain Neuro Denies Neuro-related abnormal movements Psych Denies no additional complaints Jordin/Lymph Denies easy bleeding and Denies lymphadenopathy Aller/Immun Denies lip swelling, Denies tongue swelling and Reports wheezing Physical Exam Vital Signs: Last Vital Signs Pulse 76 06/18/25 09:30 BP 104/60 06/18/25 09:30 Pulse Ox 96 06/18/25 09:30 Oxygen Delivery Method Room Air 06/18/25 09:30 BMI result Body Mass Index 20.3 Const General: alert HEENT General nose exam: Abnormal mucous membranes and turbinates present boggy Neck Neck: Yes normal visual inspection, Yes full ROM and Yes no lymphadenopathy Chest Chest palpation & inspection: normal inspection of the chest, no crepitus and no tenderness Resp Effort & Inspection: normal respiratory effort Auscultation: no crackles, no rhonchi, no wheezes and diminished lung sounds Cardio Rate: regular rate Rhythm: regular rhythm Heart sounds: S1 normal heart sound present and S2 normal heart sound present GI Palpation (GI): Soft to palpation and nontender Auscultation: normal bowel sounds Skin General skin exam: rashes and/or lesions noted Assessment & Plan Assessment & Plan (1) Cough: Code(s): R05 - Cough Category: Medical Qualifiers: Cough type: subacute Qualified Code(s): R05.2 - Subacute cough (2) Pleuritic chest pain: Code(s): R07.81 - Pleurodynia Category: Medical (3) Chronic allergic rhinitis: Code(s): J30.9 - Allergic rhinitis, unspecified Category: Medical (4) Asthma: Code(s): J45.909 - Unspecified asthma, uncomplicated Category: Medical Qualifiers: Asthma severity: moderate Asthma persistence: persistent Asthma complication type: uncomplicated Qualified Code(s): J45.40 - Moderate persistent asthma, uncomplicated (5) Dyspnea: Code(s): R06.00 - Dyspnea, unspecified Category: Medical Qualifiers: Dyspnea type: dyspnea on exertion Qualified Code(s): R06.00 - Dyspnea, unspecified Plan: improvong Plan Benzonates as needed start Doxycycline start Medrol Bloodwork if no better in 2-3 days ipratropium nasal spray as needed Patti 180mg daily ERNESTINE as needed continue Wixela PPI Allergies to dust mites: hypoallergenic bed covers, minimize carpets and should use vacuum with HEPA filter. F/U 2 months Orders: Orders RAMSEY Reflex Titer and Pattern Today R05 - Cough, R07.81 - Pleurodynia Erythrocyte Sedimentation Rate Today R05 - Cough, R07.81 - Pleurodynia D Dimer High Sensitivity Today R05 - Cough, R07.81 - Pleurodynia Basic Metabolic Panel Today R05 - Cough, R07.81 - Pleurodynia Complete Blood Count Auto Diff Today R05 - Cough, R07.81 - Pleurodynia Medications: New omeprazole 40 mg PO DAILY 30 caps 0RF doxycycline hyclate 100 mg PO BID 20 caps 0RF 10 days methylprednisolone (Medrol (Driss)) PO PER PKG DIR 21 ea 0RF 6 days ipratropium bromide administer into each nostril 2 sprays intranasal TID PRN 15 mL 6RF allergy symptoms Refilled fluticasone propion-salmeterol 250-50 mcg/dose (Wixela Inhub) 1 inh inhalation Q12H 60 ea 11RF 30 days Coding Level of Care Code Est Pt Level 4 (54032) Diagnoses Subacute cough R05.2 Cough type: subacute Pleuritic chest pain R07.81 Chronic allergic rhinitis J30.9 Moderate persistent asthma without complication J45.40 Asthma severity: moderate Asthma persistence: persistent Asthma complication type: uncomplicated Dyspnea on exertion R06.00 Dyspnea type: dyspnea on exertion Time Spent (min) 16
== END 2025-06-18 10:08 | disposition home or self-care (01) ==
LOC: HO.HPS 09:24
PROVIDERS: PCP Nurse Practitioner Gerontology; Visit Provider Hospitalist
DX: R05.2 Subacute cough (principal); R07.81 Pleurodynia; J30.9 Allergic rhinitis, unspecified; J45.40 Moderate persistent asthma, uncomplicated; R06.00 Dyspnea, unspecified
CPT/HCPCS: 99214